=== PATIENT | female | born 1995 | race Caucasian/White ===

== ENCOUNTER 2019-07-10 18:24 | Emergency (ER) | payer OTHER, SELFPAY | END 2019-07-10 18:43 | disposition left against medical advice (07) | LOC: ER 07-13 12:49 | PROVIDERS: Emergency Provider Physician Assistant; Family Provider Family Medicine | DX: Z53.21 Procedure and treatment not carried out due to patient leaving prior to being seen by health care provider (principal) | CPT/HCPCS: 99281 ==

== ENCOUNTER 2019-10-20 19:07 | Emergency (ER) | payer OTHER, SELFPAY ==
[2019-10-20 19:14] VITALS: BP 151/97; PULSE 109; RESP 18; TEMP 37; O2SAT 97; BMI 46.4
[2019-10-20 21:04] LABS: Basophils # 0.1 10^3/uL (0.0-0.1); Basophils % 0.5 %; Eosinophils # 0.2 10^3/uL (0.0-0.8); Eosinophils % 2.2 %; Hematocrit 46.3 % (37.0-47.0); Hemoglobin 14.3 g/dL (11.5-15.3); Lymphocytes # 2.5 10^3/uL (0.8-4.8); Lymphocytes % 25.9 %; Mean Corpuscular HGB Conc 30.9 g/dL (30.0-36.0); Mean Corpuscular Volume 87.5 fL (81-99); Mean Platelet Volume 11.3 fL (7.4-10.4); Monocytes # 0.7 10^3/uL (0.2-0.9); Neutrophils # 6.13 10^3/uL (1.8-7.7); Neutrophils % 64.1 %; Nucleated Red Blood Cells % 0 %; Platelet Count 323 10^3/cmm (130-400); Red Blood Count 5.29 10^6/uL (4.1-5.3); Red Cell Distribution Width 13.1 % (12.1-15.1); White Blood Count 9.6 10^3/uL (4.0-10.0)
--- NOTE | 2019-10-20 21:18 | ED_ITS ---
HPI - Abdominal Pain General: Chief Complaint: Abdominal Pain Stated Complaint: weakness Time Seen by Provider: 10/20/19 21:03 Source: patient Mode of arrival: ambulatory Limitations: no limitations History of Present Illness: HPI narrative: 24-year-old female who believes she has 8 to 10 weeks . She states she has had lower abdominal cramping she rates a 2 out of 10. She has had no vomiting or diarrhea. Denies any dysuria. Denies any worsening improving factors. MD elicited complaint: abdominal pain Associated Symptoms: Denies chills, dysuria and fever(s) Review of Systems Const: Denies: fever(s), chills, body aches or change in appetite Eyes: Denies: blurry vision or eye discomfort ENMT: Denies: throat pain or dental pain Card: Denies: chest pain Resp: Denies: dyspnea GI: Reports: abdominal pain : Denies: dysuria Musc: Denies: neck pain or back pain Skin/Breast: Denies: rash Neuro: Denies: headache(s) Psych: Denies: depression Cortes/Lymph: Denies: easy bruising All/Imm: Denies: urticaria Physical Exam Const: COMMON NORMALS: no acute distress, patient oriented x3 and healthy appearing HENMT: COMMON NORMALS: normocephalic and atraumatic HEAD & SCALP: normocephalic and atraumatic Eye: COMMON NORMALS: Equal, round and reactive pupils present and EOMs intact bilaterally PUPIL: Yes Equal, round and reactive pupils present Neck/C-Spine: COMMON NORMALS: full ROM and supple Chest: COMMONS NORMALS: normal inspection of the chest and normal palpation of entire chest wall Resp: COMMON NORMALS: normal respiratory effort, No retractions, No use of accessory muscles and clear to auscultation bilaterally AUSCULTATION: clear to auscultation bilaterally Cardio: COMMON NORMALS: regular rate, regular rhythm and No murmurs present (Cardio) RATE: regular rate RHYTHM: regular rhythm GI: COMMON NORMALS: Normal to inspection, nondistended, normoactive bowel sounds present, Soft to palpation, non-tender and no masses PALPATION: Yes Soft to palpation Extremity: COMMON NORMALS: normal to inspection and full ROM Neuro: COMMON NORMALS: patient oriented x3, moves all extremities and no focal motor deficits Psych: COMMON NORMALS: mental status grossly normal, Normal thought process present and cooperative THOUGHT PROCESS: Normal thought process present Skin: COMMON NORMALS: no rashes or lesions noted and no wounds GENERAL SKIN EXAM: no rashes or lesions noted Course Vital Signs: Vital signs: Vital Signs Temperature 98.6 F 10/20/19 19:14 Pulse Rate 90 10/20/19 22:00 Respiratory Rate 16 10/20/19 22:00 Blood Pressure 138/87 10/20/19 22:00 Pulse Oximetry 98 10/20/19 22:00 MDM - Abdominal Pain MDM Narrative: Medical decision making narrative: Liz presents here with abdominal cramping and was concerned that she was and miscarrying. Patient's test here is negative. Her abdominal exam is benign and she has no signs of acute surgical abdomen. Patient's lab work here is normal as well. She is to follow-up with Dr. Dior later this week as scheduled. She is return to the ER if worsening. She understands agrees to plan. Lab Data: Labs: Lab Results 10/20/19 10/20/19 10/20/19 Range/Units 20:38 20:38 20:38 WBC 9.6 (4.0-10.0) 10^3/ uL RBC 5.29 (4.1-5.3) 10^6/u L Hgb 14.3 (11.5-15.3) g/dL Hct 46.3 (37.0-47.0) % MCV 87.5 (81-99) fL MCH 27.0 L (28.0-34.0) pg MCHC 30.9 (30.0-36.0) g/dL RDW 13.1 (12.1-15.1) % Plt Count 323 (130-400) 10^3/c mm MPV 11.3 H (7.4-10.4) fL Neut % (Auto) 64.1 % Lymph % (Auto) 25.9 % St[place] % (Auto) 7.0 % Eos % (Auto) 2.2 % Baso % (Auto) 0.5 % Neut # (Auto) 6.13 (1.8-7.7) 10^3/u L Lymph # (Auto) 2.5 (0.8-4.8) 10^3/u L [place] # (Auto) 0.7 (0.2-0.9) 10^3/u L Eos # (Auto) 0.2 (0.0-0.8) 10^3/u L Baso # (Auto) 0.1 (0.0-0.1) 10^3/u L Nucleated RBC % (a uto) 0 % Nucleated RBCs # 0.0 /100WBC Sodium 137 (136-145) mmol/L Potassium 3.7 (3.5-5.1) mmol/L Chloride 101 (98-107) mmol/L Carbon Dioxide 28 (22-29) mmol/L Anion Gap 11.7 (5-19) BUN 8 (6-20) mg/dL Creatinine 0.6 (0.5-0.9) mg/dL GFR Calculation 125.0 (90-130) mL/min Glucose 103 (65-115) mg/dL Calculated Osmolal ity 280 L (285-295) mOsm/k g Calcium 9.7 (8.5-10.5) mg/dL Magnesium 2.1 (1.7-2.3) mg/dL Total Bilirubin 0.2 (0.15-1.2) mg/dL AST 66 H (0-32) U/L ALT 131 H (0-33) U/L Alkaline Phosphata se 82 (35-105) IU/L Total Protein 8.0 (6.6-8.7) g/dL Albumin 4.7 (3.5-5.2) g/dL Globulin 3.3 (1.3-4.6) g/dL Lipase 24 (13-60) U/L Ser , Margarita i-Qnt 0.50 mIU/mL Urine Color (Yellow) Urine Appearance (CLEAR) Urine pH (5-7) Ur Specific Gravit y (1.005-1.030) Urine Protein (Negative) Urine Glucose (UA) (Normal) Urine Ketones (Negative) Urine Blood (Negative) Urine Nitrate (Negative) Urine Bilirubin (NEGATIVE) Urine Urobilinogen (Negative) mg/dL Ur Leukocyte Paulina ase (Negative) Urine RBC (0-2) /hpf Urine WBC (0-5) /hpf Ur Squamous Epith Cells (0-5) Urine Bacteria (NONE) Urine Mucus // Range/Units 21:06 WBC (4.0-10.0) 10^3/ uL RBC (4.1-5.3) 10^6/u L Hgb (11.5-15.3) g/dL Hct (37.0-47.0) % MCV (81-99) fL MCH (28.0-34.0) pg MCHC (30.0-36.0) g/dL RDW (12.1-15.1) % Plt Count (130-400) 10^3/c mm MPV (7.4-10.4) fL Neut % (Auto) % Lymph % (Auto) % [place] % (Auto) % Eos % (Auto) % Baso % (Auto) % Neut # (Auto) (1.8-7.7) 10^3/u L Lymph # (Auto) (0.8-4.8) 10^3/u L [place] # (Auto) (0.2-0.9) 10^3/u L Eos # (Auto) (0.0-0.8) 10^3/u L Baso # (Auto) (0.0-0.1) 10^3/u L Nucleated RBC % (a uto) % Nucleated RBCs # /100WBC Sodium (136-145) mmol/L Potassium (3.5-5.1) mmol/L Chloride (98-107) mmol/L Carbon Dioxide (22-29) mmol/L Anion Gap (5-19) BUN (6-20) mg/dL Creatinine (0.5-0.9) mg/dL GFR Calculation (90-130) mL/min Glucose (65-115) mg/dL Calculated Osmolal ity (285-295) mOsm/k g Calcium (8.5-10.5) mg/dL Magnesium (1.7-2.3) mg/dL Total Bilirubin (0.15-1.2) mg/dL AST (0-32) U/L ALT (0-33) U/L Alkaline Phosphata se (35-105) IU/L Total Protein (6.6-8.7) g/dL Albumin (3.5-5.2) g/dL Globulin (1.3-4.6) g/dL Lipase (13-60) U/L Ser , Margarita i-Qnt mIU/mL Urine Color Yellow (Yellow) Urine Appearance Hazy A (CLEAR) Urine pH 7 (5-7) Ur Specific Gravit y 1.015 (1.005-1.030) Urine Protein Neg (Negative) Urine Glucose (UA) Norm (Normal) Urine Ketones Negative (Negative) Urine Blood 3+ H (Negative) Urine Nitrate Negative (Negative) Urine Bilirubin Neg (NEGATIVE) Urine Urobilinogen 1 H (Negative) mg/dL Ur Leukocyte Paulina ase Negative (Negative) Urine RBC 5-10 H (0-2) /hpf Urine WBC None (0-5) /hpf Ur Squamous Epith Cells 10-15 H (0-5) Urine Bacteria Trace (NONE) Urine Mucus 1+ Discharge Plan Discharge Patient Disposition: Home, Self-Care Clinical Impression: Abdominal pain Qualifiers: Abdominal location: generalized Qualified Code(s): R10.84 - Generalized abdominal pain Condition: Stable Prescriptions: No Action Tums 200 mg calcium (500 mg) Tablet,Chewable 200 mg PO QID PRN (Reason: Heartburn) RF: 0 Vitamin Plus Low Iron 27 mg iron- 1 mg tablet 1 tab PO DAILY RF: 0 Discharge Orders: Discharge Order (Routine); Ordered 10/20/19 Ordered By: Ally Fowler Referrals: Burke Dior MD [Primary Care Provider] - 1-3 days Discharge Diet: Advance as tolerated Discharge Activity: Resume usual activity Patient Instructions: Abdominal Pain (ED) Discharge Date/Time: 10/20/19 22:06 Coding Level of Care Code ED Insulation Power Unit Tender for Chg Fwd Exam Comprehensive
[2019-10-20 21:21] LABS: Alanine Aminotransferase 131 U/L (0-33); Albumin Level 4.7 g/dL (3.5-5.2); Alkaline Phosphatase 82 IU/L (35-105); Anion Gap 11.7 (5-19); Aspartate Amino Transferase 66 U/L (0-32); Blood Urea Nitrogen 8 mg/dL (6-20); Calcium 9.7 mg/dL (8.5-10.5); Carbon Dioxide 28 mmol/L (22-29); Chloride 101 mmol/L (98-107); Globulin 3.3 g/dL (1.3-4.6); Glucose 103 mg/dL (65-115); Lipase 24 U/L (13-60); Magnesium 2.1 mg/dL (1.7-2.3); Osmolality Calculated 280 mOsm/kg (285-295); Potassium 3.7 mmol/L (3.5-5.1); Sodium 137 mmol/L (136-145); Total Bilirubin 0.2 mg/dL (0.15-1.2)
[2019-10-20 21:47] LABS: Specific Gravity, Urine 1.015 (1.005-1.030); Urine Appearance Hazy (CLEAR); Urine Color Yellow (Yellow); pH Urine 7 (5-7)
[2019-10-20 21:48] LABS: Bilirubin Urine Neg (NEGATIVE); Blood Urine 3+ (Negative); Glucose Urine UA Norm (Normal); Ketones Urine Negative (Negative); Leukocyte Esterase Urine Negative (Negative); Nitrate Urine Negative (Negative); Protein Urine Neg (Negative); Urobilinogen Urine 1 mg/dL (Negative)
[2019-10-20 21:50] VITALS: BP 133/79; PULSE 101; RESP 20; O2SAT 99
[2019-10-20 21:50] LABS: Add Urine Culture? No; Bacteria Urine TRACE; Mucus Urine 1+
[2019-10-20 22:00] VITALS: BP 138/87; PULSE 90; RESP 16; O2SAT 98
== END 2019-10-20 22:06 | disposition home or self-care (01) ==
PROVIDERS: Emergency Medicine; Emergency Provider Emergency Medicine; PCP Family Medicine
DX: R10.9 Unspecified abdominal pain (principal); R53.1 Weakness
CPT/HCPCS: 12345; 36415; 80053; 81001; 83690; 83735; 84702; 85025; 99282

== ENCOUNTER 2021-02-14 08:39 | Emergency (ER) | payer OTHER, SELFPAY ==
[2021-02-14 08:57] VITALS: BP 174/112; PULSE 87; RESP 16; TEMP 36.7; O2SAT 100; BMI 57.8
--- NOTE | 2021-02-14 09:02 | XR_ITS ---
WS: [id number] Exam: XR chest 1V portable [id number] Date/Time of Exam: 02/14/2021 9:11 AM Reason For Exam: CHEST PAIN Comparison 05/19/2015. Findings: The lungs are clear and fully expanded. Costophrenic angles are sharp. No infiltrates. Bronchovascula r relief appears normal. Cardiac silhouette is unremarkable. Bony elements are intact. XR/XR chest 1V portable [id number] IMPRESSION: Unremarkable chest radiograph.
--- NOTE | 2021-02-14 09:02 | ECG_ITS ---
[facility] Test Date: 2021-02-14 Pat Name: Liz Webster Department: Room: Gender: Female Key Bed Installer: : 1995 Requested By: Janak Conner Order Number: [id number] Artur MD: Patricio Sandy M.D. Measurements Intervals [place] Rate: 91 P: 36 [place]: 170 QRS: 9 QRSD: 104 T: 31 QT: 336 QTc: 415 Interpretive Statements SINUS RHYTHM INTERPRETATION BASED ON A DEFAULT AGE OF 40 YEARS Compared to ECG 05/19/2015 09:41:03 No significant changes Electronically Signed On 02-14-2021 21:55:21 QUILL MACHINE TENDER by Patricio Sandy M.D. [id number] f
--- NOTE | 2021-02-14 11:24 | ED_ITS ---
HPI - Chest Pain General: Chief Complaint: Chest Pain Stated Complaint: Chest pains, dizzy, HTN, sent by [facility] Time Seen by Provider: 02/14/21 11:24 History of Present Illness: HPI narrative: Ms. Webster is a 25-year-old lady with significant past medical history of obesity who presents emergency department due to high blood pressure and chest discomfort. She has been at her baseline health without significant changes when she was at work this morning. She endorses being in a patient room with PPE on when she had fairly subacute onset of generalized malaise chest pressure in the middle of her chest, mild dizziness, and diaphoresis. Her blood pressure was checked and reportedly high. She subsequently went to clinic and was found to have high blood pressure there as well and referred to the emergency department. She denies similar episodes in the past. Intensity of symptoms was moderate. Overall symptoms have improved. She does have a family history of some sort of early cardiac disease, occasional smoker. No recent immobilization or history of blood clots. No other specific changes in health, exacerbating, provoking, or alleviating factors identified. Review of Systems General: Reports: 10 or more systems reviewed and unremarkable except in HPI and below REPLACED BY [facility] Female Reproductive History: Date of last menstrual period: 11/30/20 Physical Exam Narrative: EXAM NARRATIVE: GENERAL/CONSTITUTIONAL -mildly ill-appearing. No acute distress. Obese Eyes -no scleral icterus, no conjunctival injection ENMT - Atraumatic external nose and ears. Moist mucous membranes NECK - supple. trachea midline CARDIOVASCULAR - regular rate and rhythm. Normal peripheral perfusion RESPIRATORY -diminished to auscultation bilaterally. No retractions or accessory muscle use. ABDOMEN/GI - Nontender/Nondistended. No tenderness to percussion or evidence of peritonitis MSK - Extremities without obvious deformity or tenderness to palpation SKIN - Warm, Dry NEURO - alert and appropriately oriented.Moves all extremities equally. Course ED course: - Patient was seen and evaluated by me at bedside - Patient placed on cardiac monitors, IV access obtained - Initial evaluation notable for no acute distress, nontoxic appearance. Blood pressure is somewhat elevated. No focal neurologic deficits. Chest pain not reproducible with physical exam maneuvers. - Labs notable for no leukocytosis, normal hemoglobin. No significant metabolic abnormalities to explain patient symptoms - Imaging notable for negative chest - Upon serial reexamination after treatment the patient was similar - Based on patient history, evaluation, labs, and imaging as interpreted the most likely cause of the patient's condition is unspecified chest pain, patient is low risk by heart score. She was tested at work yesterday for Covid and reportedly tested negative. - The results of ED evaluation were discussed with the patient including prescriptions and/or symptomatic cares (if applicable) including appropriate and responsible use, followup plan, and return precautions. The patient verbalized understanding and felt safe for discharge. - Patient discharged in satisfactory condition. Vital Signs: Vital signs: Vital Signs Temperature 98.1 F 02/14/21 08:57 Pulse Rate 78 02/14/21 14:42 Respiratory Rate 18 02/14/21 14:42 Blood Pressure 148/93 02/14/21 14:42 Pulse Oximetry 98 02/14/21 14:42 MDM - Chest Pain Medical Records: Attestation: I reviewed the patient's medical records. Lab Data: Attestation: I reviewed the patient's lab results. Labs: Lab Results 02/14/21 02/14/21 02/14/21 11:55 11:55 11:55 WBC 9.5 10^3/uL 10^3/ uL (4.0-10.0) RBC 4.75 10^6/uL 10^6 /uL (4.1-5.3) Hgb 13.2 g/dL g/dL (11.5-15.3) Hct 41.3 % % (37.0-47.0) MCV 86.9 fl fl (81-99) MCH 27.8 pg L pg (28.0-34.0) MCHC 32.0 g/dL g/dL (30.0-36.0) RDW 12.9 % % (12.1-15.1) Plt Count 259 10^3/cmm 10^3 /cmm (130-400) MPV 11.2 fL H fL (7.4-10.4) Neut % (Auto) 69.5 % % Lymph % (Auto) 21.3 % % [place] % (Auto) 6.8 % % Eos % (Auto) 1.8 % % Baso % (Auto) 0.4 % % Neut # (Auto) 6.63 10^3/uL 10^3 /uL (1.8-7.7) Lymph # (Auto) 2.0 10^3/uL 10^3/ uL (0.8-4.8) [place] # (Auto) 0.7 10^3/uL 10^3/ uL (0.2-0.9) Eos # (Auto) 0.2 10^3/uL 10^3/ uL (0.0-0.8) Baso # (Auto) 0.0 10^3/uL 10^3/ uL (0.0-0.1) Nucleated RBC % (a uto) 0 % % Nucleated RBCs # 0.0 /100WBC /100W BC Sodium Cancelled Potassium Cancelled Chloride Cancelled Carbon Dioxide Cancelled Anion Gap Cancelled BUN Cancelled Creatinine Cancelled GFR Calculation Cancelled Glucose Cancelled Calculated Osmolal ity Cancelled Calcium Cancelled Troponin T Baselin e Cancelled HCG, Qual Urine Color Urine Appearance Urine pH Ur Specific Gravit y Urine Protein Urine Glucose (UA) Urine Ketones Urine Blood Urine Nitrate Urine Bilirubin Urine Urobilinogen Ur Leukocyte Paulina ase Urine RBC Urine WBC Ur Squamous Epith Cells Ur Transition Epit h Cell Amorphous Sediment Urine Bacteria Urine Mucus 02/14/21 02/14/21 02/14/21 12:00 12:00 12:34 WBC RBC Hgb Hct MCV MCH MCHC RDW Plt Count MPV Neut % (Auto) Lymph % (Auto) [place] % (Auto) Eos % (Auto) Baso % (Auto) Neut # (Auto) Lymph # (Auto) [place] # (Auto) Eos # (Auto) Baso # (Auto) Nucleated RBC % (a uto) Nucleated RBCs # Sodium 136 mmol/L mmol/L (136-145) Potassium 3.7 mmol/L mmol/L (3.5-5.1) Chloride 98 mmol/L mmol/L (98-107) Carbon Dioxide 22 mmol/L mmol/L (22-29) Anion Gap 19.7 H (5-19) BUN 8 mg/dL mg/dL (6-20) Creatinine 0.7 mg/dL mg/dL (0.5-0.9) GFR Calculation 103.7 mL/min mL/m in (90-130) Glucose 90 mg/dL mg/dL (65-115) Calculated Osmolal ity 280 mOsm/kg L mOs m/kg (285-295) Calcium 9.3 mg/dL mg/dL (8.5-10.5) Troponin T Baselin e HCG, Qual Negative (Negative) Urine Color Yellow (Yellow) Urine Appearance Hazy A (CLEAR) Urine pH 6 (5-7) Ur Specific Gravit y 1.020 (1.005-1.030) Urine Protein Neg (Negative) Urine Glucose (UA) Norm (Normal) Urine Ketones 1+ H (Negative) Urine Blood Neg (Negative) Urine Nitrate Negative (Negative) Urine Bilirubin 1+ H (Negative) Urine Urobilinogen 1 mg/dL H mg/dL (Negative) Ur Leukocyte Paulina ase 1+ H (Negative) Urine RBC Not Reportable Urine WBC 5-10 /hpf H /hpf (0-5) Ur Squamous Epith Cells 5-10 /hpf H /hpf (0-5) Ur Transition Epit h Cell 0-4 /hpf /hpf Amorphous Sediment Trace /hpf /hpf Urine Bacteria 1+ /hpf H /hpf (NONE) Urine Mucus 2+ /hpf /hpf 02/14/21 12:34 WBC RBC Hgb Hct MCV MCH MCHC RDW Plt Count MPV Neut % (Auto) Lymph % (Auto) [place] % (Auto) Eos % (Auto) Baso % (Auto) Neut # (Auto) Lymph # (Auto) [place] # (Auto) Eos # (Auto) Baso # (Auto) Nucleated RBC % (a uto) Nucleated RBCs # Sodium Potassium Chloride Carbon Dioxide Anion Gap BUN Creatinine GFR Calculation Glucose Calculated Osmolal ity Calcium Troponin T Baselin e 6 ng/L ng/L (0-10) HCG, Qual Urine Color Urine Appearance Urine pH Ur Specific Gravit y Urine Protein Urine Glucose (UA) Urine Ketones Urine Blood Urine Nitrate Urine Bilirubin Urine Urobilinogen Ur Leukocyte Paulina ase Urine RBC Urine WBC Ur Squamous Epith Cells Ur Transition Epit h Cell Amorphous Sediment Urine Bacteria Urine Mucus EKG Data^: EKG 1: Attestation: I personally reviewed and interpreted this EKG as follows: EKG interpretation date: 02/14/21 EKG interpretation time: 09:02 Interpretation: Twelve-lead EKG shows a regular rhythm at a rate of 91. [place] interval 170, QRS duration 104, QTc 415. Borderline axis. Interpretation: Sinus rhythm. Discharge Plan Discharge Patient Disposition: Home Clinical Impression: Chest pain, Hypertension Condition: Stable Prescriptions: No Action acetaminophen 500 mg tablet 500 mg PO Q6H PRN (Reason: pain) 5 Days Qty: 20 RF: 0 Discharge Orders: Discharge ED (Routine); Ordered 02/14/21 Ordered By: Steven Bob Referrals: Burke Dior MD [Primary Care Provider] - Discharge Diet: Advance as tolerated Discharge Activity: Increase activity as tolerated Patient Instructions: Chest Pain (ED), Hypertension (ED) Activity Restrictions/Additional Instructions: Thank you for visiting the emergency department. You were seen and evaluated for chest pain, high blood pressure, generalized malaise. The exact cause of your symptoms is unclear however based on risk factors and description of symptoms you are overall low risk for a cardiac etiology of your chest pain. Please keep track of your blood pressure at home and keep a log for 1 week checking it twice per day in a relaxed calm environment. Please follow-up with your primary care provider. Please return to the emergency department for recurrence of symptoms, worsening symptoms, or anything else that you are concerned about and feel needs emergency department evaluation. Coding Level of Care Code ED Baler Operator for Liliana Rivas
[2021-02-14 12:04] LABS: Basophils % 0.4 %; Eosinophils # 0.2 10^3/uL (0.0-0.8); Eosinophils % 1.8 %; Hematocrit 41.3 % (37.0-47.0); Hemoglobin 13.2 g/dL (11.5-15.3); Lymphocytes % 21.3 %; Mean Corpuscular Hemoglobin 27.8 pg (28.0-34.0); Mean Corpuscular Volume 86.9 fl (81-99); Mean Platelet Volume 11.2 fL (7.4-10.4); Monocytes # 0.7 10^3/uL (0.2-0.9); Monocytes % 6.8 %; Neutrophils # 6.63 10^3/uL (1.8-7.7); Neutrophils % 69.5 %; Nucleated Red Blood Cells % 0 %; Platelet Count 259 10^3/cmm (130-400); Red Blood Count 4.75 10^6/uL (4.1-5.3); Red Cell Distribution Width 12.9 % (12.1-15.1); White Blood Count 9.5 10^3/uL (4.0-10.0)
[2021-02-14 12:32] LABS: Charge for UA Resulting for Rev
[2021-02-14 12:37] LABS: Urine Appearance Hazy (CLEAR); Urine Color Yellow (Yellow); pH Urine 6 (5-7)
[2021-02-14 12:38] LABS: Add Urine Microscopic? YES; Bilirubin Urine 1+ (Negative); Blood Urine Neg (Negative); Glucose Urine UA Norm (Normal); Ketones Urine 1+ (Negative); Leukocyte Esterase Urine 1+ (Negative); Nitrate Urine Negative (Negative); Protein Urine Neg (Negative); Urobilinogen Urine 1 mg/dL (Negative)
[2021-02-14 12:43] LABS: Amorphous Sediment Urine TRACE /hpf; Bacteria Urine 1+ /hpf; Mucus Urine 2+ /hpf; Transitional Epi Cells Urine 0-4 /hpf
[2021-02-14 12:47] LABS: Add Urine Culture? Yes
[2021-02-14 13:28] LABS: Troponin(5th) Baseline 6 ng/L (0-10)
[2021-02-14 13:29] LABS: Anion Gap 19.7 (5-19); Blood Urea Nitrogen 8 mg/dL (6-20); Calcium 9.3 mg/dL (8.5-10.5); Carbon Dioxide 22 mmol/L (22-29); Chloride 98 mmol/L (98-107); Glomerular Filtration Rate 103.7 mL/min (90-130); Glucose 90 mg/dL (65-115); Osmolality Calculated 280 mOsm/kg (285-295); Potassium 3.7 mmol/L (3.5-5.1); Sodium 136 mmol/L (136-145)
[2021-02-14] MEDS: sodium chloride 0.9% 1,000 ML 999 ML IV (13:55)
[2021-02-14] MEDS: ketorolac 30 mg/mL INJ 15 MG IVP (13:56)
[2021-02-14 13:57] VITALS: PULSE 87; RESP 18
[2021-02-14 14:42] VITALS: BP 148/93; PULSE 78; RESP 18; O2SAT 98
--- NOTE | 2021-02-14 15:02 | ECG_ITS ---
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 Measurements Intervals [place] Rate: 95 P: 28 [place]: 180 QRS: 2 QRSD: 103 T: 22 QT: 359 QTc: 453 Interpretive Statements SINUS RHYTHM POSSIBLE LEFT ATRIAL ENLARGEMENT [-0.1mV P-WAVE IN V1/V2] LOW QRS VOLTAGE IN PRECORDIAL LEADS [QRS DEFLECTION < 1.0 mV IN CHEST LEADS] PATTERN CONSISTENT WITH PULMONARY DISEASE INCOMPLETE RIGHT BUNDLE BRANCH BLOCK [90+ ms QRS DURATION, TERMINAL R IN V1/V2, 40+ ms S IN I/aVL/V4/V5/V6] Compared to ECG 02/14/2021 08:55:14 Low QRS voltage now present Incomplete right bundle-branch block now present Electronically Signed On 02-14-2021 22:12:44 DATA WAREHOUSE DEVELOPER by Patricio Sandy M.D. [id number]
[2021-02-14 16:08] LABS: HCG Qualitative Urine. Negative (Negative)
== END 2021-02-14 14:44 | disposition home or self-care (01) ==
PROVIDERS: Family Medicine; Emergency Provider Emergency Medicine; PCP Family Medicine
DX: R07.9 Chest pain, unspecified (principal); I10 Essential (primary) hypertension
CPT/HCPCS: 36415; 71045; 80048; 81001; 81003; 81025; 84484; 85025; 87086; 93005; 96361; 96374; 99283; J1885; J7030

== ENCOUNTER 2021-02-14 17:44 | Emergency (ER) | payer OTHER, SELFPAY ==
[2021-02-14 17:52] VITALS: BP 174/117; PULSE 136; RESP 24; TEMP 36.8; O2SAT 99; BMI 57.8
[2021-02-14 18:06] VITALS: BP 129/107; PULSE 129; RESP 13; O2SAT 97
--- NOTE | 2021-02-14 18:13 | XRR_ITS ---
PROCEDURE INFORMATION: Exam: XR Chest Exam date and time: 02/14/2021 6:13 PM Age: 25 years old Clinical indication: Shortness of breath; Additional info: Eval ptx TECHNIQUE: Imaging protocol: XR of the chest. Views: 1 view. COMPARISON: CR XR chest 1V portable [id number] 02/14/2021 9:10 AM FINDINGS: Lungs: Unremarkable. No consolidation. Pleural spaces: Unremarkable. No pleural effusion. No pneumothorax. Heart/Mediastinum: Unremarkable. No cardiomegaly. Bones/joints: Unremarkable. XR/XR chest 1V portable [id number] IMPRESSION: No acute findings. Radiation Dose CTDIVOL = (mGy): DLP = (mGy-cm)
[2021-02-14] MEDS: LORazepam 2 mg/mL INJ 1 mL IVP (18:16)
[2021-02-14 19:40] VITALS: RESP 18
[2021-02-14] MEDS: morphine 4 mg/mL SDV 1 mL 2 MG IVP (19:40)
[2021-02-14] MEDS: sodium chloride 0.9% 1,000 ML 999 ML IV (19:40)
[2021-02-14 19:55] LABS: Basophils # 0.1 10^3/uL (0.0-0.1); Basophils % 0.6 %; Eosinophils # 0.2 10^3/uL (0.0-0.8); Eosinophils % 1.5 %; Hematocrit 40.3 % (37.0-47.0); Hemoglobin 13.6 g/dL (11.5-15.3); Lymphocytes # 3.2 10^3/uL (0.8-4.8); Lymphocytes % 29.5 %; Mean Corpuscular HGB Conc 33.7 g/dL (30.0-36.0); Mean Corpuscular Volume 83.1 fl (81-99); Mean Platelet Volume 11.4 fL (7.4-10.4); Monocytes # 0.8 10^3/uL (0.2-0.9); Monocytes % 7.6 %; Neutrophils # 6.56 10^3/uL (1.8-7.7); Neutrophils % 60.3 %; Nucleated Red Blood Cells % 0 %; Platelet Count 341 10^3/cmm (130-400); Red Blood Count 4.85 10^6/uL (4.1-5.3); White Blood Count 10.9 10^3/uL (4.0-10.0)
[2021-02-14 20:13] LABS: D Dimer 0.35 ug/mIFEU (0-0.59)
[2021-02-14 20:16] LABS: Troponin T (5th) Once 6 ng/L (0-10)
[2021-02-14 20:25] LABS: Anion Gap 22.4 (5-19); Blood Urea Nitrogen 9 mg/dL (6-20); Calcium 9.5 mg/dL (8.5-10.5); Carbon Dioxide 18 mmol/L (22-29); Chloride 101 mmol/L (98-107); Glomerular Filtration Rate 103.7 mL/min (90-130); Glucose 98 mg/dL (65-115); Osmolality Calculated 285 mOsm/kg (285-295); Potassium 3.4 mmol/L (3.5-5.1); Sodium 138 mmol/L (136-145); Thyroid Stimulating Hormone 2.22 uIU/mL (0.27-4.20)
[2021-02-14 20:36] VITALS: BP 131/87; PULSE 86; RESP 16; O2SAT 97
--- NOTE | 2021-02-14 20:47 | ED_ITS ---
HPI - General Adult General: Chief complaint: Anxiety Stated complaint: CHEST PAIN/ L ARM NUMBNESS Time Seen by Provider: 02/14/21 17:49 History of Present Illness: HPI narrative: CC: Chest Pain HPI: This is a [25] yo patient presenting to the ED complaining of acute sudden onset intermittent sharp chest pain. No associated with shortness of breath, chest pain or dyspnea on exertion. Pain is not tearing in nature and does not radiate to the back. Pain not associated with vomiting or PO intake. Denies any recent sympathomimetic drug use. Patient denies any cough. Denies palpitations, dysphagia, diaphoresis, radiation of pain to bilateral arms, jaw. Denies F/N/V/D. Patient denies any recent immobility, surgery, unilateral leg swelling, or prior PE. Patient denies any orthopnea. Patient was seen earlier today for chest pain. Onset: 1 days ago Duration: ongoing for the last 1 days Location: home Severity: mild/moderate Review of Systems Narrative: Constitutional: No fever, no chills. HEENT: No vision changes, no sore throat. CV: +chest pain, no palpitations. PULM: No cough, No dyspnea. GI: No abdominal pain, no N/V/D. : No dysuria, no frequency, no hematuria. MSKEL: No arthralgias, no edema. SKIN: No new rashes, no lesions. NEURO: No headache, no focal weakness. HEME: No easy bleeding or bruising. PSYCH: No change in mood or affect. [facility] ED Female Reproductive History: Date of last menstrual period: 11/30/20 Physical Exam Narrative: EXAM NARRATIVE: Head: Atraumatic, normocephalic Eyes: PERRL, EOMI, conjunctiva without injection ENT: Throat without erythema, lesions or exudate, MMM NECK: Supple, trachea midline, no JVD LUNGS: LCTA CV: RRR, S1,S2, no murmurs, rubs, gallops. 2+ peripheral pulses in UEs ABDOMEN: Soft, nontender, nondistended, BS x4, no rigidity, no guarding, no rebound EXTREMITY: Normal ROM, no pitting edema, no calf tenderness to palpation, 2+DP/PT pulses in the b/l feet SKIN: No rash or erythema NEURO: Awake and alert. No focal motor deficits. PSYCH: Normal mood and affect. Course Vital Signs: Vital signs: Vital Signs Temperature 98.2 F 02/14/21 17:52 Pulse Rate 92 02/14/21 21:43 Respiratory Rate 16 02/14/21 20:36 Blood Pressure 127/76 02/14/21 21:43 Pulse Oximetry 94 02/14/21 21:43 MDM - General Adult MDM Narrative: Medical decision making narrative: [25]yo patient w/ hx of obesity and occasional smoking representing to the ED for concern of persistent chest pain despite evaluation earlier today. HDS, pulse 2+ radially bilaterally, no signs of fluid overload, AAOx3, neuro exam intact. Given History and Exam today I have no suspicion for ACS, Pneumothorax, Pneumonia, Pulmonary Embolus, Tamponade, Aortic Dissection or other emergent problems as a cause for this presentation. Workup: ECG, CXR, CBC, BMP, Troponin Interventions: ativan 1mg, morphine 2mg, IVF Findings: ECG: No overt evidence of STEMI, hyperacute T waves, localizable STD or T wave inversions. No evidence of Brugada?s sign, delta wave, epsilon wave, significantly prolonged QTc, or malignant arrhythmia. No Q waves. Other Labs unremarkable for emergent problems. CXR: Without PTX, PNA, or widened mediastinum Last Stress Test: never Last Heart Catheterization: never HEART Score: 1 (story) D dimer wnl [8:48pm] On reassessment, the patient is HDS, no complaints of persistent chest pain in the ED after evaluation. ECG is non-ischemic. Doubt ACS/PE or other emergent causes of chest pain. No suspicion for aortic dissection given no wi dened mediastinum, 2+ upper extremity pulses, or tearing pain. Patient had back and abdominal pain. Bedside US did not show any dissection flap in the abdominal aorta and the LV outflow track. Patient has 2+ b/l femoral pulses and intact b/l DP/PT pulses b/l. No suspicion for PE given no pleuritic chest pain, recent immobilization or surgery hemoptysis, or other VTE risk factors. D-Dimer is similarly normal. Rx: Tylenol 500mg Q6Hrs x 4 days PRN pain Disposition: Discharge. Strict return precautions discussed with the patient with full understanding. Advised patient to follow up promptly with a primary care provider in 24-48 hrs if the patient has persistent symptoms. Given return instructions for any crushing/tearing chest pain, focal weakness, syncope or any new or concerning issues. Lab Data: Labs: Lab Results 02/14/21 02/14/21 02/14/21 19:48 19:48 19:48 WBC 10.9 10^3/uL H 10 ^3/uL (4.0-10.0) RBC 4.85 10^6/uL 10^6 /uL (4.1-5.3) Hgb 13.6 g/dL g/dL (11.5-15.3) Hct 40.3 % % (37.0-47.0) MCV 83.1 fl fl (81-99) MCH 28.0 pg pg (28.0-34.0) MCHC 33.7 g/dL D g/dL (30.0-36.0) RDW 13.0 % % (12.1-15.1) Plt Count 341 10^3/cmm D 1 0^3/cmm (130-400) MPV 11.4 fL H fL (7.4-10.4) Neut % (Auto) 60.3 % % Lymph % (Auto) 29.5 % % [place] % (Auto) 7.6 % % Eos % (Auto) 1.5 % % Baso % (Auto) 0.6 % % Neut # (Auto) 6.56 10^3/uL 10^3 /uL (1.8-7.7) Lymph # (Auto) 3.2 10^3/uL 10^3/ uL (0.8-4.8) [place] # (Auto) 0.8 10^3/uL 10^3/ uL (0.2-0.9) Eos # (Auto) 0.2 10^3/uL 10^3/ uL (0.0-0.8) Baso # (Auto) 0.1 10^3/uL 10^3/ uL (0.0-0.1) Nucleated RBC % (a uto) 0 % % Nucleated RBCs # 0.0 /100WBC /100W BC D-Dimer 0.35 ug/mIFEU ug/ mIFEU (0-0.59) Sodium 138 mmol/L mmol/L (136-145) Potassium 3.4 mmol/L L mmol /L (3.5-5.1) Chloride 101 mmol/L mmol/L (98-107) Carbon Dioxide 18 mmol/L L mmol/ L (22-29) Anion Gap 22.4 H (5-19) BUN 9 mg/dL mg/dL (6-20) Creatinine 0.7 mg/dL mg/dL (0.5-0.9) GFR Calculation 103.7 mL/min mL/m in (90-130) Glucose 98 mg/dL mg/dL (65-115) Calculated Osmolal ity 285 mOsm/kg mOsm/ kg (285-295) Calcium 9.5 mg/dL mg/dL (8.5-10.5) Troponin T Gen 5 n g/L TSH 2.22 uIU/mL uIU/m L (0.27-4.20) Free T4 1.10 ng/dL ng/dL (0.82-1.77) 02/14/21 19:48 WBC RBC Hgb Hct MCV MCH MCHC RDW Plt Count MPV Neut % (Auto) Lymph % (Auto) [place] % (Auto) Eos % (Auto) Baso % (Auto) Neut # (Auto) Lymph # (Auto) [place] # (Auto) Eos # (Auto) Baso # (Auto) Nucleated RBC % (a uto) Nucleated RBCs # D-Dimer Sodium Potassium Chloride Carbon Dioxide Anion Gap BUN Creatinine GFR Calculation Glucose Calculated Osmolal ity Calcium Troponin T Gen 5 n g/L 6 ng/L ng/L (0-10) TSH Free T4 Imaging Data^: Other Imaging: Radiologist's impression: [address] [id number] ReportSigned Patient: Liz Webster #: [id number]: 1995Acct#:[id number]/Sex: 25 / FADM Date: 02/14/21Loc: ERRoom/Bed:Attending Dr: Ordering Provider/Ordering MD: Jone Fitzpatrick MD Date of Service: 02/14/21 Procedure(s): XR chest 1V portable [id number] Accession Number(s): [id number] Report Number: [id number] PROCEDURE INFORMATION: Exam: XR Chest Exam date and time: 02/14/2021 6:13 PM Age: 25 years old Clinical indication: Shortness of breath; Additional info: Eval ptx TECHNIQUE: Imaging protocol: XR of the chest. Views: 1 view. COMPARISON: CR XR chest 1V portable [id number] 02/14/2021 9:10 AM FINDINGS: Lungs: Unremarkable. No consolidation. Pleural spaces: Unremarkable. No pleural effusion. No pneumothorax. Heart/Mediastinum: Unremarkable. No cardiomegaly. Bones/joints: Unremarkable. XR/XR chest 1V portable [id number] IMPRESSION: No acute findings. Radiation Dose CTDIVOL = (mGy): DLP = (mGy-cm) Dictated By:Shasta Arellano By:Shasta Arellano Date/Time:02/14/211847DD/ 12 Discharge Plan Discharge Patient Disposition: Home Clinical Impression: Chest pain, Palpitations Condition: Stable Prescriptions: New acetaminophen 500 mg tablet 500 mg PO Q6H PRN (Reason: pain) 5 Days Qty: 20 RF: 0 Discharge Orders: Discharge ED (Routine); Ordered 02/14/21 Ordered By: Jone Fitzpatrick Referrals: Burke Dior MD [Primary Care Provider] - Discharge Diet: Advance as tolerated Discharge Activity: Resume usual activity Patient Instructions: Chest Pain (ED) Activity Restrictions/Additional Instructions: Come back to the emergency room if your chest pain worsens, have any fever or chills, worsening shortness of breath, worsening exertional lightheadedness, or any new or concerning complaints. Coding Level of Care Code ED Ent Consultant for Liliana Rivas
[2021-02-14 21:43] VITALS: BP 127/76; PULSE 92; O2SAT 94
== END 2021-02-14 21:44 | disposition home or self-care (01) ==
PROVIDERS: Emergency Provider Emergency Medicine; PCP Family Medicine
DX: R07.9 Chest pain, unspecified (principal); R00.2 Palpitations
CPT/HCPCS: 71045; 80048; 84439; 84443; 84484; 85025; 85378; 96361; 96374; 96375; 99284; J2060; J2270; J7030

== ENCOUNTER 2021-02-16 12:39 | Emergency (ER) | payer OTHER, SELFPAY ==
[2021-02-16 13:28] VITALS: BP 157/101; PULSE 92; RESP 18; TEMP 36.8; O2SAT 99; BMI 57.4
--- NOTE | 2021-02-16 13:36 | ECG_ITS ---
[facility] Test Date: 2021-02-16 Pat Name: Liz Webster Department: Room: Gender: Female Core Paster: : 1995 Requested By: Janak Conner Order Number: [id number] Artur MD: Jazmín Bautsita M.D. Measurements Intervals [place] Rate: 94 P: 31 [place]: 166 QRS: 1 QRSD: 104 T: 31 QT: 341 QTc: 427 Interpretive Statements SINUS RHYTHM INCOMPLETE RIGHT BUNDLE BRANCH BLOCK [90+ ms QRS DURATION, TERMINAL R IN V1/V2, 40+ ms S IN I/aVL/V4/V5/V6] Compared to ECG 02/14/2021 11:16:36 No significant changes Electronically Signed On 02-17-2021 16:13:04 COAGULATING BATH OPERATOR by Jazmín Bautista M.D. [id number]
--- NOTE | 2021-02-16 17:03 | XRR_ITS ---
PROCEDURE INFORMATION: Exam: XR Chest Exam date and time: 02/16/2021 5:03 PM Age: 25 years old Clinical indication: Pain; Angina pectoris; Additional info: Dyspnea/cough TECHNIQUE: Imaging protocol: XR of the chest. Views: 1 view. COMPARISON: CR (CHEST, ) 02/14/2021 6:26 PM FINDINGS: Lungs: Unremarkable. No consolidation. Pleural spaces: Unremarkable. No pleural effusion. No pneumothorax. Heart/Mediastinum: Unremarkable. No cardiomegaly. Bones/joints: Unremarkable. XR/XR chest 1V portable [id number] IMPRESSION: No acute findings. Radiation Dose CTDIVOL = (mGy): DLP = (mGy-cm)
--- NOTE | 2021-02-16 17:10 | ED_ITS ---
Documented by User: Janak Bauer DO 02/24/21 07:00 HPI - Chest Pain General: Chief Complaint: Chest Pain Stated Complaint: SOB, CP, SAME YESTERDAY Time Seen by Provider: 02/16/21 16:43 History of Present Illness: HPI narrative: 25-year-old female presents emergency room with continued complaints of chest pain shortness of breath. She complained of chest pain upper portion of the chest just to the left of the sternum. She has been here twice this week previously CTA of the chest was negative all other evaluation was unremarkable. Chest pain is reproducible with palpation on the upper portion of the sternum she is hyperventilating when I first came in the room. She reports that she has been lightheaded and dizzy also reports passing out a couple of times. MD complaint: chest pain and chest discomfort Onset (ago): day(s) Timing of current episode: episodic Pain location: left chest and parasternal Pain radiation: none Severity: mild Quality: sharp Relieving factors: rest Exacerbating factors: inspiration and palpation Associated symptoms: Reports sense of impending doom; Deny abdominal pain, diaphoresis, dyspnea, fever(s), leg edema, nausea, palpitations, syncope or vomiting Treatment prior to arrival: none Review of Systems Const: Denies: fever(s) or diaphoresis ENMT: Denies: throat pain, ear or mastoid pain, nasal discharge or nasal congestion Card: Denies: palpitations or syncope Resp: Denies: dyspnea GI: Denies: abdominal pain, nausea or vomiting : Denies: flank pain, difficulty voiding, dysuria, urinary frequency or urinary urgency Skin/Breast: Denies: rash or pruritus [facility] Female Reproductive History: Date of last menstrual period: 11/30/20 Physical Exam Const: COMMON NORMALS: no acute distress GENERAL APPEARANCE: cooperative and comfortable ORIENTATION/CONSCIOUSNESS: Yes awake, Yes oriented to person, Yes oriented to place and Yes oriented to time HENMT: COMMON NORMALS: normocephalic, atraumatic and hearing grossly normal bilaterally HEAD & SCALP: normocephalic and atraumatic Neck/C-Spine: COMMON NORMALS: no JVD Chest: OTHER: Chest pain reproducible left side of the upper sternum with palpation and with deep inspiration. No rash noted no sign of any vesicular rash. Resp: COMMON NORMALS: normal respiratory effort, No retractions, No use of accessory muscles and clear to auscultation bilaterally AUSCULTATION: clear to auscultation bilaterally Cardio: COMMON NORMALS: no JVD, regular rate, regular rhythm and No murmurs present (Cardio) RATE: regular rate RHYTHM: regular rhythm GI: COMMON NORMALS: Soft to palpation and No hepatosplenomegaly present AUSCULTATION: Yes normoactive bowel sounds PALPATION: Yes Soft to palpation, No Tenderness to palpation present (GI), No Guarding due to palpation present (GI) and Yes No hepatosplenomegaly present Extremity: COMMON NORMALS: normal to inspection, capillary refill normal, no clubbing, cyanosis or edema, no calf tenderness and no pedal edema Neuro: SENSORIUM/ORIENTATION: Yes oriented to person, Yes oriented to place and Yes oriented to time Skin: COMMON NORMALS: no rashes or lesions noted GENERAL SKIN EXAM: no rashes or lesions noted Course Vital Signs: Vital signs: Vital Signs Temperature 98.2 F 02/16/21 13:28 Pulse Rate 78 02/16/21 22:50 Respiratory Rate 26 H 02/16/21 22:50 Blood Pressure 147/98 02/16/21 22:50 Pulse Oximetry 95 02/16/21 22:50 MDM - Chest Pain MDM Narrative: Medical decision making narrative: Care turned over to Dr. Fitzpatrick at change of shift see his note for final diagnosis and disposition. Lab Data: Labs: Lab Results 02/16/21 02/16/21 02/16/21 17:20 18:18 18:18 WBC 10.9 10^3/uL H 10 ^3/uL (4.0-10.0) RBC 4.93 10^6/uL 10^6 /uL (4.1-5.3) Hgb 14.0 g/dL g/dL (11.5-15.3) Hct 43.0 % % (37.0-47.0) MCV 87.2 fl fl (81-99) MCH 28.4 pg pg (28.0-34.0) MCHC 32.6 g/dL g/dL (30.0-36.0) RDW 12.8 % % (12.1-15.1) Plt Count 301 10^3/cmm 10^3 /cmm (130-400) MPV 10.8 fL H fL (7.4-10.4) Neut % (Auto) 68.8 % % Lymph % (Auto) 24.0 % % Thurston % (Auto) 5.5 % % Eos % (Auto) 0.8 % % Baso % (Auto) 0.4 % % Neut # (Auto) 7.51 10^3/uL 10^3 /uL (1.8-7.7) Lymph # (Auto) 2.6 10^3/uL 10^3/ uL (0.8-4.8) Thurston # (Auto) 0.6 10^3/uL 10^3/ uL (0.2-0.9) Eos # (Auto) 0.1 10^3/uL 10^3/ uL (0.0-0.8) Baso # (Auto) 0.0 10^3/uL 10^3/ uL (0.0-0.1) Nucleated RBC % (a uto) 0 % % Nucleated RBCs # 0.0 /100WBC /100W BC Specimen Type Arterial Sample Site Radial, left ABG pH 7.44 (7.35-7.45) ABG pCO2 34.6 mmHg L mmHg (35-45) ABG pO2 67.0 mmHg L mmHg (80.0-100.0) ABG HCO3 23.5 mmol/L mmol/ L (22-26) ABG O2 Saturation 94.8 ABG Base Excess -0.1 mmol/L mmol/ L (-2.0-2.0) Moncho Test Pos A-a O2 Gradient 5.4 mmHg mmHg (5-10) Hematocrit 41.0 % % (37-47) Hgb O2 Saturation 93.3 % L % (95-100) Carboxyhemoglobin 0.7 %THgb %THgb (0.4-20.1) Methemoglobin 0.9 % % (0.4-1.5) Total Hemoglobin 13.4 g/dL g/dL (12-16) Sodium 142.0 mmol/L mmol /L 139 mmol/L mmol/L (131-143) (136-145) Potassium 3.2 mmol/L L mmol /L 3.4 mmol/L L mmol /L (3.5-5.0) (3.5-5.1) Glucose 85.0 mg/dL mg/dL 80 mg/dL mg/dL (70-115) (65-115) Ionized Calcium 1.2 mmol/L mmol/L (1.1-1.4) O2 Delivery Device Room air Barge Master ID Gd Chloride 100 mmol/L mmol/L (98-107) Carbon Dioxide 23 mmol/L mmol/L (22-29) Anion Gap 19.4 H (5-19) BUN 7 mg/dL mg/dL (6-20) Creatinine 0.6 mg/dL mg/dL (0.5-0.9) GFR Calculation 123.9 mL/min mL/m in (90-130) Calculated Osmolal ity 285 mOsm/kg mOsm/ kg (285-295) Calcium 9.2 mg/dL mg/dL (8.5-10.5) Total Bilirubin 0.5 mg/dL mg/dL (0.15-1.2) AST 28 U/L U/L (0-32) ALT 44 U/L H U/L (0-33) Alkaline Phosphata se 77 IU/L IU/L (35-105) Troponin T Gen 5 n g/L Total Protein 7.2 g/dL g/dL (6.6-8.7) Albumin 4.4 g/dL g/dL (3.5-5.2) Globulin 2.8 g/dL g/dL (1.3-4.6) Lipase 24 U/L U/L (13-60) Urine Color Urine Appearance Urine pH Ur Specific Gravit y Urine Protein Urine Glucose (UA) Urine Ketones Urine Blood Urine Nitrate Urine Bilirubin Urine Urobilinogen Ur Leukocyte Paulina ase Urine RBC Urine WBC Ur Squamous Epith Cells Amorphous Sediment Urine Bacteria 02/16/21 02/16/21 18:18 18:25 WBC RBC Hgb Hct MCV MCH MCHC RDW Plt Count MPV Neut % (Auto) Lymph % (Auto) Thurston % (Auto) Eos % (Auto) Baso % (Auto) Neut # (Auto) Lymph # (Auto) Thurston # (Auto) Eos # (Auto) Baso # (Auto) Nucleated RBC % (a uto) Nucleated RBCs # Specimen Type Sample Site ABG pH ABG pCO2 ABG pO2 ABG HCO3 ABG O2 Saturation ABG Base Excess Moncho Test A-a O2 Gradient Hematocrit Hgb O2 Saturation Carboxyhemoglobin Methemoglobin Total Hemoglobin Sodium Potassium Glucose Ionized Calcium O2 Delivery Device Barge Master ID Chloride Carbon Dioxide Anion Gap BUN Creatinine GFR Calculation Calculated Osmolal ity Calcium Total Bilirubin AST ALT Alkaline Phosphata se Troponin T Gen 5 n g/L 6 ng/L ng/L (0-10) Total Protein Albumin Globulin Lipase Urine Color Yellow (Yellow) Urine Appearance Sl hazy (CLEAR) Urine pH 8 H (5-7) Ur Specific Gravit y 1.010 (1.005-1.030) Urine Protein Neg (Negative) Urine Glucose (UA) Norm (Normal) Urine Ketones 2+ H (Negative) Urine Blood Neg (Negative) Urine Nitrate Negative (Negative) Urine Bilirubin Neg (Negative) Urine Urobilinogen Norm mg/dL mg/dL (Negative) Ur Leukocyte Paulina ase Trace H (Negative) Urine RBC None /hpf /hpf (0-2) Urine WBC 5-10 /hpf H /hpf (0-5) Ur Squamous Epith Cells 25-40 /hpf H /hpf (0-5) Amorphous Sediment Not Reportable Urine Bacteria 1+ /hpf H /hpf (NONE) Discharge Plan Discharge Patient Disposition: Home Clinical Impression: Chest pain Condition: Stable Discharge Orders: Discharge ED (Routine); Ordered 02/17/21 Ordered By: Jone Fitzpatrick Referrals: Burke Dior MD [Primary Care Provider] - Discharge Diet: Advance as tolerated Discharge Activity: Resume usual activity Patient Instructions: Chest Pain (ED) Activity Restrictions/Additional Instructions: Come back to the emergency room if your chest pain worsens, have any fever or chills, worsening shortness of breath, worsening exertional lightheadedness, or any new or concerning complaints. Stand Alone Forms: Work/School Release Coding Level of Care Code ED Manufacturers Service Representative for Chg Fwd Exam Comprehensive Documented by User: Jone Fitzpatrick MD 02/17/21 01:34 HPI - Chest Pain General: Chief Complaint: Chest Pain Stated Complaint: SOB, CP, SAME YESTERDAY Time Seen by Provider: 02/16/21 16:43 Course Vital Signs: Vital signs: Vital Signs Temperature 98.2 F 11/18/21 13:28 Pulse Rate 78 02/16/21 22:50 Respiratory Rate 26 H 02/16/21 22:50 Blood Pressure 147/98 02/16/21 22:50 Pulse Oximetry 95 02/16/21 22:50 MDM - Chest Pain MDM Narrative: Medical decision making narrative: Given significant pain, CTA showed no dissection. Doubt ACS/PE or other emergent causes of chest pain. No suspicion for aortic dissection given no widened mediastinum, 2+ upper extremity pulses, or tearing pain. No suspicion for PE given no pleuritic chest pain, recent immobilization or surgery hemoptysis, or other VTE risk factors. EKG is non-ischemic. XR normal. Disposition: Discharge. Patient counseled regarding diagnostic impression, treatment plan. Patient given ED strict return precautions to return for continuation, worsening, or development of new symptoms. Instructed to f/u w/ PCP regarding symptoms today. Patient verbalized understanding. Lab Data: Labs: Lab Results 02/16/21 02/16/21 02/16/21 17:20 18:18 18:18 WBC 10.9 10^3/uL H 10 ^3/uL (4.0-10.0) RBC 4.93 10^6/uL 10^6 /uL (4.1-5.3) Hgb 14.0 g/dL g/dL (11.5-15.3) Hct 43.0 % % (37.0-47.0) MCV 87.2 fl fl (81-99) MCH 28.4 pg pg (28.0-34.0) MCHC 32.6 g/dL g/dL (30.0-36.0) RDW 12.8 % % (12.1-15.1) Plt Count 301 10^3/cmm 10^3 /cmm (130-400) MPV 10.8 fL H fL (7.4-10.4) Neut % (Auto) 68.8 % % Lymph % (Auto) 24.0 % % Thurston % (Auto) 5.5 % % Eos % (Auto) 0.8 % % Baso % (Auto) 0.4 % % Neut # (Auto) 7.51 10^3/uL 10^3 /uL (1.8-7.7) Lymph # (Auto) 2.6 10^3/uL 10^3/ uL (0.8-4.8) Thurston # (Auto) 0.6 10^3/uL 10^3/ uL (0.2-0.9) Eos # (Auto) 0.1 10^3/uL 10^3/ uL (0.0-0.8) Baso # (Auto) 0.0 10^3/uL 10^3/ uL (0.0-0.1) Nucleated RBC % (a uto) 0 % % Nucleated RBCs # 0.0 /100WBC /100W BC Specimen Type Arterial Sample Site Radial, left ABG pH 7.44 (7.35-7.45) ABG pCO2 34.6 mmHg L mmHg (35-45) ABG pO2 67.0 mmHg L mmHg (80.0-100.0) ABG HCO3 23.5 mmol/L mmol/ L (22-26) ABG O2 Saturation 94.8 ABG Base Excess -0.1 mmol/L mmol/ L (-2.0-2.0) Moncho Test Pos A-a O2 Gradient 5.4 mmHg mmHg (5-10) Hematocrit 41.0 % % (37-47) Hgb O2 Saturation 93.3 % L % (95-100) Carboxyhemoglobin 0.7 %THgb %THgb (0.4-20.1) Methemoglobin 0.9 % % (0.4-1.5) Total Hemoglobin 13.4 g/dL g/dL (12-16) Sodium 142.0 mmol/L mmol /L 139 mmol/L mmol/L (131-143) (136-145) Potassium 3.2 mmol/L L mmol /L 3.4 mmol/L L mmol /L (3.5-5.0) (3.5-5.1) Glucose 85.0 mg/dL mg/dL 80 mg/dL mg/dL (70-115) (65-115) Ionized Calcium 1.2 mmol/L mmol/L (1.1-1.4) O2 Delivery Device Room air Barge Master ID Gd Chloride 100 mmol/L mmol/L (98-107) Carbon Dioxide 23 mmol/L mmol/L (22-29) Anion Gap 19.4 H (5-19) BUN 7 mg/dL mg/dL (6-20) Creatinine 0.6 mg/dL mg/dL (0.5-0.9) GFR Calculation 123.9 mL/min mL/m in (90-130) Calculated Osmolal ity 285 mOsm/kg mOsm/ kg (285-295) Calcium 9.2 mg/dL mg/dL (8.5-10.5) Total Bilirubin 0.5 mg/dL mg/dL (0.15-1.2) AST 28 U/L U/L (0-32) ALT 44 U/L H U/L (0-33) Alkaline Phosphata se 77 IU/L IU/L (35-105) Troponin T Gen 5 n g/L Total Protein 7.2 g/dL g/dL (6.6-8.7) Albumin 4.4 g/dL g/dL (3.5-5.2) Globulin 2.8 g/dL g/dL (1.3-4.6) Lipase 24 U/L U/L (13-60) Urine Color Urine Appearance Urine pH Ur Specific Gravit y Urine Protein Urine Glucose (UA) Urine Ketones Urine Blood Urine Nitrate Urine Bilirubin Urine Urobilinogen Ur Leukocyte Paulina ase Urine RBC Urine WBC Ur Squamous Epith Cells Amorphous Sediment Urine Bacteria 02/16/21 02/16/21 18:18 18:25 WBC RBC Hgb Hct MCV MCH MCHC RDW Plt Count MPV Neut % (Auto) Lymph % (Auto) Thurston % (Auto) Eos % (Auto) Baso % (Auto) Neut # (Auto) Lymph # (Auto) Thurston # (Auto) Eos # (Auto) Baso # (Auto) Nucleated RBC % (a uto) Nucleated RBCs # Specimen Type Sample Site ABG pH ABG pCO2 ABG pO2 ABG HCO3 ABG O2 Saturation ABG Base Excess Moncho Test A-a O2 Gradient Hematocrit Hgb O2 Saturation Carboxyhemoglobin Methemoglobin Total Hemoglobin Sodium Potassium Glucose Ionized Calcium O2 Delivery Device Barge Master ID Chloride Carbon Dioxide Anion Gap BUN Creatinine GFR Calculation Calculated Osmolal ity Calcium Total Bilirubin AST ALT Alkaline Phosphata se Troponin T Gen 5 n g/L 6 ng/L ng/L (0-10) Total Protein Albumin Globulin Lipase Urine Color Yellow (Yellow) Urine Appearance Sl hazy (CLEAR) Urine pH 8 H (5-7) Ur Specific Gravit y 1.010 (1.005-1.030) Urine Protein Neg (Negative) Urine Glucose (UA) Norm (Normal) Urine Ketones 2+ H (Negative) Urine Blood Neg (Negative) Urine Nitrate Negative (Negative) Urine Bilirubin Neg (Negative) Urine Urobilinogen Norm mg/dL mg/dL (Negative) Ur Leukocyte Paulina ase Trace H (Negative) Urine RBC None /hpf /hpf (0-2) Urine WBC 5-10 /hpf H /hpf (0-5) Ur Squamous Epith Cells 25-40 /hpf H /hpf (0-5) Amorphous Sediment Not Reportable Urine Bacteria 1+ /hpf H /hpf (NONE) Imaging Data^: Other Imaging: Radiologist's impression: [employer] [place], [place] [address]KF Scan ReportSigned Patient: Liz Webster #: [id number]: 1995Acct#:[id number]/Sex: 25 / FADM Date: 02/16/21Loc: ERRoom/Bed:Attending Dr: Ordering Provider/Ordering MD: Jone Fitzpatrick MD Date of Service: 02/16/21 Procedure(s): CT angio chest PE protcl [id number] Accession Number(s): [id number] Report Number: [id number] PROCEDURE INFORMATION: Exam: CTA Chest With Contrast Exam date and time: 02/16/2021 9:15 PM Age: 25 years old Clinical indication: Shortness of breath; Chest pressure; Patient HX: Chest pain with SOB. Exam attempted three times. Best exam submitted. ; Additional info: Eval pe TECHNIQUE: Imaging protocol: Computed tomographic angiography of the chest with contrast. 3D rendering (Not supervised by radiologist): MIP and/or 3D reconstructed images were created by the technologist. Radiation optimization: All CT scans at this facility use at least one of these dose optimization techniques: automated exposure control; mA and/or kV adjustment per patient size (includes targeted exams where dose is matched to clinical indication); or iterative reconstruction. Contrast material: OMNI 350; Contrast volume: 191 ml; Contrast route: INTRAVENOUS (IV); COMPARISON: CR XR chest 1V portable [id number] 02/16/2021 5:07 PM RADIATION DOSE METRICS: Total DLP (mGy-cm): 2445.64 FINDINGS: Pulmonary arteries: Normal. No pulmonary emboli. Aorta: Unremarkable. No aortic aneurysm. No aortic dissection. Lungs: Unremarkable. No consolidation. No masses. Pleural spaces: Unremarkable. No pneumothorax. No pleural effusion. Heart: Unremarkable. No cardiomegaly. No pericardial effusion. Mediastinal space: Residual thymic tissue in the anterior mediastinum. Lymph nodes: Unremarkable. No enlarged lymph nodes. Gallbladder and bile ducts: Cholecystectomy. The bile ducts are normal. Bones/joints: Unremarkable. No acute fracture. Soft tissues: Unremarkable. CT/CT angio chest PE protcl [id number] IMPRESSION: 1. No evidence for pulmonary embolus or other acute finding. Radiation Dose CTDIVOL = (mGy): DLP = 2445.64 (mGy-cm) Dictated By:Shasta Arellano By:Shasta Arellano Date/Time:02/17/21 0003DD/ 14 Discharge Plan Discharge Patient Disposition: Home Clinical Impression: Chest pain Condition: Stable Discharge Orders: Discharge ED (Routine); Ordered 02/17/21 Ordered By: Jone Fitzpatrick Referrals: Burke Dior MD [Primary Care Provider] - Discharge Diet: Advance as tolerated Discharge Activity: Resume usual activity Patient Instructions: Chest Pain (ED) Activity Restrictions/Additional Instructions: Come back to the emergency room if your chest pain worsens, have any fever or chills, worsening shortness of breath, worsening exertional lightheadedness, or any new or concerning complaints. Stand Alone Forms: Work/School Release Coding Level of Care Code ED Manufacturers Service Representative for Liliana Fwd Exam Comprehensive
[2021-02-16 17:38] LABS: ABG PCO2 34.6 mmHg (35-45); ABG PH Result 7.44 (7.35-7.45); Alveolar-Arterial Oxygen Gradi 5.4 mmHg (5-10); Base Excess ABG -0.1 mmol/L (-2.0-2.0); Blood Gas Allen Test Pos; Blood Gas Operator Identificat GD; Blood Gas Sample Site Radial, left; Blood Gas Sample Type Arterial; Carboxyhemoglobin 0.7 %THgb (0.4-20.1); HCO3 ABG 23.5 mmol/L (22-26); HGB O2 Sat 93.3 % (95-100); Ionized Calcium Level - ABG 1.2 mmol/L (1.1-1.4); Methemoglobin 0.9 % (0.4-1.5); Oxygen Device ROOM AIR; Oxygen Saturation ABG 94.8; Potassium Level - ABG 3.2 mmol/L (3.5-5.0); Total Hemoglobin 13.4 g/dL (12-16)
[2021-02-16 17:55] VITALS: BP 135/101; PULSE 98; RESP 18; O2SAT 96
--- NOTE | 2021-02-16 18:14 | PC.NURSE ---
cardiac monitoring, and monitoring of BP, SpO2 initiated upon arrival into room.
[2021-02-16 18:24] LABS: Basophils % 0.4 %; Eosinophils # 0.1 10^3/uL (0.0-0.8); Eosinophils % 0.8 %; Lymphocytes # 2.6 10^3/uL (0.8-4.8); Mean Corpuscular HGB Conc 32.6 g/dL (30.0-36.0); Mean Corpuscular Hemoglobin 28.4 pg (28.0-34.0); Mean Corpuscular Volume 87.2 fl (81-99); Mean Platelet Volume 10.8 fL (7.4-10.4); Monocytes # 0.6 10^3/uL (0.2-0.9); Monocytes % 5.5 %; Neutrophils # 7.51 10^3/uL (1.8-7.7); Neutrophils % 68.8 %; Nucleated Red Blood Cells % 0 %; Platelet Count 301 10^3/cmm (130-400); Red Blood Count 4.93 10^6/uL (4.1-5.3); Red Cell Distribution Width 12.8 % (12.1-15.1); White Blood Count 10.9 10^3/uL (4.0-10.0)
[2021-02-16] MEDS: acetaminophen 500 mg Tablet 1000 MG PO (18:33)
[2021-02-16 18:34] VITALS: BP 137/91; BP 149/119; BP 159/111; PULSE 103; PULSE 81; PULSE 96
[2021-02-16 18:39] VITALS: BP 149/119; PULSE 118; RESP 18
[2021-02-16 18:53] LABS: Add Urine Microscopic? YES; Bilirubin Urine Neg (Negative); Blood Urine Neg (Negative); Glucose Urine UA Norm (Normal); Ketones Urine 2+ (Negative); Leukocyte Esterase Urine Trace (Negative); Nitrate Urine Negative (Negative); Protein Urine Neg (Negative); Urine Appearance SL Hazy (CLEAR); Urine Color Yellow (Yellow); Urobilinogen Urine Norm (Negative); pH Urine 8 (5-7)
[2021-02-16 19:03] LABS: Alanine Aminotransferase 44 U/L (0-33); Albumin Level 4.4 g/dL (3.5-5.2); Alkaline Phosphatase 77 IU/L (35-105); Anion Gap 19.4 (5-19); Aspartate Amino Transferase 28 U/L (0-32); Blood Urea Nitrogen 7 mg/dL (6-20); Calcium 9.2 mg/dL (8.5-10.5); Carbon Dioxide 23 mmol/L (22-29); Chloride 100 mmol/L (98-107); Globulin 2.8 g/dL (1.3-4.6); Glomerular Filtration Rate 123.9 mL/min (90-130); Glucose 80 mg/dL (65-115); Lipase 24 U/L (13-60); Osmolality Calculated 285 mOsm/kg (285-295); Potassium 3.4 mmol/L (3.5-5.1); Sodium 139 mmol/L (136-145); Total Bilirubin 0.5 mg/dL (0.15-1.2); Total Protein 7.2 g/dL (6.6-8.7); Troponin T (5th) Once 6 ng/L (0-10)
[2021-02-16 19:04] LABS: Add Urine Culture? No; Bacteria Urine 1+ /hpf; Squamous Epithelial Cell Urine 25-40 /hpf (0-5)
[2021-02-16] MEDS: ibuprofen 200 mg Tablet 400 MG PO (21:09)
--- NOTE | 2021-02-16 21:15 | CTR_ITS ---
PROCEDURE INFORMATION: Exam: CTA Chest With Contrast Exam date and time: 02/16/2021 9:15 PM Age: 25 years old Clinical indication: Shortness of breath; Chest pressure; Patient HX: Chest pain with SOB. Exam attempted three times. Best exam submitted. ; Additional info: Eval pe TECHNIQUE: Imaging protocol: Computed tomographic angiography of the chest with contrast. 3D rendering (Not supervised by radiologist): MIP and/or 3D reconstructed images were created by the technologist. Radiation optimization: All CT scans at this facility use at least one of these dose optimization techniques: automated exposure control; mA and/or kV adjustment per patient size (includes targeted exams where dose is matched to clinical indication); or iterative reconstruction. Contrast material: OMNI 350; Contrast volume: 191 ml; Contrast route: INTRAVENOUS (IV); COMPARISON: CR XR chest 1V portable [id number] 02/16/2021 5:07 PM RADIATION DOSE METRICS: Total DLP (mGy-cm): 2445.64 FINDINGS: Pulmonary arteries: Normal. No pulmonary emboli. Aorta: Unremarkable. No aortic aneurysm. No aortic dissection. Lungs: Unremarkable. No consolidation. No masses. Pleural spaces: Unremarkable. No pneumothorax. No pleural effusion. Heart: Unremarkable. No cardiomegaly. No pericardial effusion. Mediastinal space: Residual thymic tissue in the anterior mediastinum. Lymph nodes: Unremarkable. No enlarged lymph nodes. Gallbladder and bile ducts: Cholecystectomy. The bile ducts are normal. Bones/joints: Unremarkable. No acute fracture. Soft tissues: Unremarkable. CT/CT angio chest PE protcl [id number] IMPRESSION: 1. No evidence for pulmonary embolus or other acute finding. Radiation Dose CTDIVOL = (mGy): DLP = 2445.64 (mGy-cm)
[2021-02-16 22:13] VITALS: BP 136/83; PULSE 88; RESP 20; O2SAT 96
[2021-02-16 22:50] VITALS: BP 147/98; PULSE 78; RESP 26; O2SAT 95
[2021-02-16] MEDS: iohexol 350 mg/mL 100 mL Btl IV ×3 (23:40→23:50)
== END 2021-02-17 00:53 | disposition home or self-care (01) ==
PROVIDERS: Family Medicine; Emergency Provider Emergency Medicine; PCP Family Medicine
DX: R07.9 Chest pain, unspecified (principal)
CPT/HCPCS: 36415; 36600; 71045; 71275; 80051; 80053; 81001; 82330; 82805; 83690; 84484; 85025; 93005; 99284; Q9967

== ENCOUNTER → 2021-05-27 16:04 | Outpatient (BNVA) | payer OTHER, SELFPAY | PROVIDERS: PCP Family Medicine; Visit Provider Nurse Practitioner | DX: S69.92XA Unspecified injury of left wrist, hand and finger(s), initial encounter (principal); W19.XXXA Unspecified fall, initial encounter | CPT/HCPCS: 73110 ==

== ENCOUNTER 2021-06-30 22:56 | Emergency (ER) | payer OTHER, SELFPAY ==
[2021-06-30 23:01] VITALS: BP 144/93; PULSE 95; RESP 20; TEMP 36.6; O2SAT 97; BMI 47.2
--- NOTE | 2021-06-30 23:11 | W.ED.ABDPA2 ---
Documented by User: SONIA Lazaro 07/01/21 01:09 HPI - Abdominal Pain General: Chief Complaint: Abdominal Pain Stated Complaint: sharp pains in stomach Time Seen by Provider: 06/30/21 23:09 History of Present Illness: 25-year-old female comes in today with complaints of nausea vomiting and diarrhea over the last 3 days. Patient was prompted to come in this evening due to epigastric discomfort. Patient reports the pain just seems of become worse over this episode. Patient reports exposure to other individuals that have been similarly ill. Patient has had her gallbladder removed. Patient denies any routine medications. Patient is morbidly obese. MD elicited complaint: abdominal pain Onset (ago): day(s) Pain Consistency: intermittent Location: Epigastric Quality: sharp Radiation: back Associated Symptoms: Reports diarrhea, nausea and vomiting; Denies fever(s) Related Data: Date of Last Menstrual Period: 05/30/21 Patient : No Review of Systems General: Reports: 10 or more systems reviewed and unremarkable except in HPI and below Const: Denies: fever(s) or malaise ENMT: Denies: throat pain Card: Denies: chest pain Resp: Denies: dyspnea GI: Reports: nausea, vomiting and diarrhea : Denies: difficulty voiding Musc: Reports: back pain Skin/Breast: Denies: rash PFSH ED PFSH: Social History Smoking and tobacco status: never smoked Female Reproductive History: Date of last menstrual period: 05/30/21 Physical Exam Const: COMMON NORMALS: alert HENMT: COMMON NORMALS: normocephalic HEAD & SCALP: normocephalic NOSE: no Nasal discharge present THROAT: posterior oropharynx abnormal erythema Neck/C-Spine: COMMON NORMALS: full ROM, no lymphadenopathy and no meningeal signs Resp: COMMON NORMALS: normal respiratory effort and clear to auscultation bilaterally AUSCULTATION: clear to auscultation bilaterally Cardio: COMMON NORMALS: regular rate and regular rhythm RATE: regular rate RHYTHM: regular rhythm GI: COMMON NORMALS: Soft to palpation and non-tender AUSCULTATION: Yes Hyperactive bowel sounds present PALPATION: Yes Soft to palpation and Yes Tenderness to palpation present (GI) (mid epigastric) : COMMON NORMALS: Yes no CVA tenderness BLADDER/KIDNEY EXAM: Yes no CVA tenderness Back/Pelvis: COMMON NORMALS: no CVA tenderness Neuro: SENSORIUM/ORIENTATION: Yes alert MENINGEAL SIGNS: Yes no meningeal signs Psych: COMMON NORMALS: cooperative Skin: COMMON NORMALS: no wounds Course Vital Signs: Vital signs: Vital Signs Temperature 97.9 F 06/30/21 23:01 Pulse Rate 74 07/01/21 01:07 Respiratory Rate 16 07/01/21 01:07 Blood Pressure 124/72 07/01/21 01:07 Pulse Oximetry 98 07/01/21 01:07 MDM - Abdominal Pain Medical Decision Making 25-year-old female comes in today with complaints of midepigastric abdominal pain. Patient states that she has had diarrhea with nausea and vomiting for the last 3 days. Patient reports worsening pain tonight midepigastric region. On exam abdomen is tender in the upper central area of the abdomen. Bowel sounds are hyperactive. Skin is warm and dry. Vital signs are normal. Differential diagnosis includes but not limited to pancreatitis, bowel obstruction, gastroenteritis. Laboratory values noted a white count of 10.7, lipase was normal, CMP was unremarkable except for 1.[address] of the abdomen and pelvis indicated prominent small bowel loops suggesting gastroenteritis. Patient was given 1 L of IV fluids, 4 mg of ondansetron, and 4 mg of IV morphine. Patient had improvement of symptoms and felt better. Patient will be continued on ondansetron for nausea and dicyclomine for abdominal cramping. Patient reported understanding of care plan need for follow-up or return to the ER for worsening pain, high fever, or blood in vomit or stool. Lab Data : 06/30/21 23:18 06/30/21 23:18 Labs/Radiology: Radiology Impressions Abdomen/Pelvis CT 06/30/21 23:42 IMPRESSION: There are few loops of mildly prominent small bowel , nonspecific but may be seen with gastroenteritis. Laboratory Results WBC 10.7 10^3/uL (4.0-10.0) H 06/30/21 23:18 RBC 5.13 10^6/uL (4.1-5.3) 06/30/21 23:18 Hgb 14.3 g/dL (11.5-15.3) 06/30/21 23:18 Hct 44.5 % (37.0-47.0) 06/30/21 23:18 MCV 86.7 fl (81-99) 06/30/21 23:18 MCH 27.9 pg (28.0-34.0) L 06/30/21 23:18 MCHC 32.1 g/dL (30.0-36.0) 06/30/21 23:18 RDW 12.9 % (12.1-15.1) 06/30/21 23:18 Plt Count 286 10^3/cmm (130-400) 06/30/21 23:18 MPV 11.7 fL (7.4-10.4) H 06/30/21 23:18 Neut % (Auto) 69.7 % 06/30/21 23:18 Lymph % (Auto) 21.8 % 06/30/21 23:18 [place] % (Auto) 6.4 % 06/30/21 23:18 Eos % (Auto) 1.5 % 06/30/21 23:18 Baso % (Auto) 0.3 % 06/30/21 23:18 Neut # (Auto) 7.46 10^3/uL (1.8-7.7) 06/30/21 23:18 Lymph # (Auto) 2.3 10^3/uL (0.8-4.8) 06/30/21 23:18 [place] # (Auto) 0.7 10^3/uL (0.2-0.9) 06/30/21 23:18 Eos # (Auto) 0.2 10^3/uL (0.0-0.8) 06/30/21 23:18 Baso # (Auto) 0.0 10^3/uL (0.0-0.1) 06/30/21 23:18 Nucleated RBC % (auto) 0 % 06/30/21 23:18 Nucleated RBCs # 0.0 /100WBC 06/30/21 23:18 Sodium 138 mmol/L (136-145) 06/30/21 23:18 Potassium 3.8 mmol/L (3.5-5.1) 06/30/21 23:18 Chloride 101 mmol/L (98-107) 06/30/21 23:18 Carbon Dioxide 27 mmol/L (22-29) 06/30/21 23:18 Anion Gap 13.8 (5-19) 06/30/21 23:18 BUN 12 mg/dL (6-20) 06/30/21 23:18 Creatinine 1.0 mg/dL (0.5-0.9) H 06/30/21 23:18 GFR Calculation 68.7 mL/min (90-130) L 06/30/21 23:18 Glucose 93 mg/dL (65-115) 06/30/21 23:18 Calculated Osmolality 285 mOsm/kg (285-295) 06/30/21 23:18 Calcium 9.7 mg/dL (8.5-10.5) 06/30/21 23:18 Total Bilirubin 0.4 mg/dL (0.15-1.2) 06/30/21 23:18 AST 25 U/L (0-32) 06/30/21 23:18 ALT 36 U/L (0-33) H 06/30/21 23:18 Alkaline Phosphatase 70 IU/L (35-105) 06/30/21 23:18 Total Protein 7.3 g/dL (6.6-8.7) 06/30/21 23:18 Albumin 4.7 g/dL (3.5-5.2) 06/30/21 23:18 Globulin 2.6 g/dL (1.3-4.6) 06/30/21 23:18 Lipase 27 U/L (13-60) 06/30/21 23:18 HCG, Qual Negative (Negative) 06/30/21 23:18 Urine Color Yellow (Yellow) 07/01/21 00:40 Urine Appearance Sl cloudy (CLEAR) A 07/01/21 00:40 Urine pH 6.5 (5-7) 07/01/21 00:40 Ur Specific [place] 1.015 (1.005-1.030) 07/01/21 00:40 Urine Protein Neg (Negative) 07/01/21 00:40 Urine Glucose (UA) Norm (Normal) 07/01/21 00:40 Urine Ketones Negative (Negative) 07/01/21 00:40 Urine Blood Neg (Negative) 07/01/21 00:40 Urine Nitrate Negative (Negative) 07/01/21 00:40 Urine Bilirubin Neg (Negative) 07/01/21 00:40 Urine Urobilinogen Norm mg/dL (Negative) 07/01/21 00:40 Ur Leukocyte Esterase Negative (Negative) 07/01/21 00:40 Urine RBC 0-4 /hpf (0-2) H 07/01/21 00:40 Urine WBC 10-15 /hpf (0-5) H 07/01/21 00:40 Ur Squamous Epith Cells 25-40 /hpf (0-5) H 07/01/21 00:40 Amorphous Sediment Not Reportable 07/01/21 00:40 Urine Bacteria 2+ /hpf (NONE) H 07/01/21 00:40 Discharge Plan Discharge Patient Disposition: Home Clinical Impression: Gastroenteritis Condition: Stable Prescriptions: New ondansetron 4 mg tablet,disintegrating 4 mg PO Q8H PRN (Reason: nausea and vomiting) Qty: 10 0RF dicyclomine 20 mg tablet 20 mg PO TID PRN (Reason: abdominal pain) Qty: 14 0RF Discharge Orders: Discharge ED (Routine); Ordered 07/01/21 Ordered By: Cosme Rosado Referrals: Burke Dior MD [Primary Care Provider] - Discharge Diet: Usual diet Discharge Activity: Increase activity as tolerated Patient Instructions: Gastroenteritis (ED) Activity Restrictions/Additional Instructions: Use medications as directed. Drink plenty of fluids. Drinking electrolyte solution such as Pedialyte until diarrhea resolves. Follow-up with primary care in 3 days. Return to the emergency department for worsening symptoms such as blood in vomit or stool, fever greater than 100.4, or new concerns. Coding Level of Care Code ED Youth Officer for Chg Fwd Exam Comprehensive Documented by User: Carlos Manuel Alexander DO 07/01/21 02:16 HPI - Abdominal Pain General: Chief Complaint: Abdominal Pain Stated Complaint: sharp pains in stomach Time Seen by Provider: 06/30/21 23:09 [facility] ED PFSH: Social History Smoking and tobacco status: never smoked Course Vital Signs: Vital signs: Vital Signs Temperature 97.9 F 06/30/21 23:01 Pulse Rate 74 07/01/21 01:07 Respiratory Rate 16 07/01/21 01:07 Blood Pressure 124/72 07/01/21 01:07 Pulse Oximetry 98 07/01/21 01:07 MDM - Abdominal Pain Medical Decision Making 25-year-old female comes in today with complaints of midepigastric abdominal pain. Patient states that she has had diarrhea with nausea and vomiting for the last 3 days. Patient reports worsening pain tonight midepigastric region. On exam abdomen is tender in the upper central area of the abdomen. Bowel sounds are hyperactive. Skin is warm and dry. Vital signs are normal. Differential diagnosis includes but not limited to pancreatitis, bowel obstruction, gastroenteritis. Laboratory values noted a white count of 10.7, lipase was normal, CMP was unremarkable except for 1.[address] of the abdomen and pelvis indicated prominent small bowel loops suggesting gastroenteritis. Patient was given 1 L of IV fluids, 4 mg of ondansetron, and 4 mg of IV morphine. Patient had improvement of symptoms and felt better. Patient will be continued on ondansetron for nausea and dicyclomine for abdominal cramping. Patient reported understanding of care plan need for follow-up or return to the ER for worsening pain, high fever, or blood in vomit or stool. This patient was originally seen by SONIA Espino.? I agree with his history, evaluation, and treatment. Lab Data : 06/30/21 23:18 06/30/21 23:18 Labs/Radiology: Radiology Impressions Abdomen/Pelvis CT 06/30/21 23:42
[2021-06-30 23:29] LABS: Basophils % 0.3 %; Eosinophils # 0.2 10^3/uL (0.0-0.8); Eosinophils % 1.5 %; Hematocrit 44.5 % (37.0-47.0); Hemoglobin 14.3 g/dL (11.5-15.3); Lymphocytes # 2.3 10^3/uL (0.8-4.8); Lymphocytes % 21.8 %; Mean Corpuscular HGB Conc 32.1 g/dL (30.0-36.0); Mean Corpuscular Hemoglobin 27.9 pg (28.0-34.0); Mean Corpuscular Volume 86.7 fl (81-99); Mean Platelet Volume 11.7 fL (7.4-10.4); Monocytes # 0.7 10^3/uL (0.2-0.9); Monocytes % 6.4 %; Neutrophils # 7.46 10^3/uL (1.8-7.7); Neutrophils % 69.7 %; Nucleated Red Blood Cells % 0 %; Platelet Count 286 10^3/cmm (130-400); Red Blood Count 5.13 10^6/uL (4.1-5.3); Red Cell Distribution Width 12.9 % (12.1-15.1); White Blood Count 10.7 10^3/uL (4.0-10.0)
--- NOTE | 2021-06-30 23:42 | CTR_ITS ---
PROCEDURE INFORMATION: Exam: CT Abdomen And Pelvis With Contrast Exam date and time: 07/01/2021 12:12 AM Age: 25 years old Clinical indication: Nausea and vomiting; Abdominal pain; Generalized; Patient HX: Abd pain with n/v/d. ; Additional info: Abd pain, n/v/d TECHNIQUE: Imaging protocol: Computed tomography of the abdomen and pelvis with contrast. Radiation optimization: All CT scans at this facility use at least one of these dose optimization techniques: automated exposure control; mA and/or kV adjustment per patient size (includes targeted exams where dose is matched to clinical indication); or iterative reconstruction. Contrast material: OMNI 300; Contrast volume: 95 ml; Contrast route: INTRAVENOUS (IV); COMPARISON: CT abdomen pelvis w con* [id number] 11/28/2015 9:02 AM RADIATION DOSE METRICS: Total DLP (mGy-cm): 1822.12 FINDINGS: Lungs: The lung bases are clear. No effusion Liver: Normal. No mass. Gallbladder and bile ducts: There has been a cholecystectomy. Pancreas: Normal. No ductal dilation. Spleen: Normal. No splenomegaly. Adrenal glands: Normal. No mass. Kidneys and ureters: See Vasculature finding. Stomach and bowel: There are few loops of mildly prominent small bowel , nonspecific but may be seen with gastroenteritis. Appendix: No evidence of appendicitis. Intraperitoneal space: Unremarkable. No free air. No significant fluid collection. Vasculature: Retroaortic left renal vein. Lymph nodes: Unremarkable. No enlarged lymph nodes. Urinary bladder: Unremarkable as visualized. Reproductive: Unremarkable as visualized. Bones/joints: Unremarkable. No acute fracture. Soft tissues: Unremarkable. CT/CT abdomen pelvis w con* [id number] IMPRESSION: There are few loops of mildly prominent small bowel , nonspecific but may be seen with gastroenteritis.
[2021-06-30] MEDS: morphine 4 mg/mL SDV 1 mL IVP (23:43)
[2021-06-30] MEDS: sodium chloride 0.9% 1,000 ML 999 ML IV (23:44)
[2021-06-30] MEDS: famotidine 20 mg/2 mL INJ 40 MG IVP (23:44)
[2021-06-30] MEDS: ondansetron 2 mg/ML SDV 2 mL 4 MG IVP (23:44)
[2021-06-30] MEDS: alum-mag-hydroxide-sime 30 mL UDC PO (23:44)
[2021-06-30 23:45] LABS: HCG, Serum Qual Negative (Negative)
[2021-06-30 23:54] LABS: Alanine Aminotransferase 36 U/L (0-33); Albumin Level 4.7 g/dL (3.5-5.2); Alkaline Phosphatase 70 IU/L (35-105); Anion Gap 13.8 (5-19); Aspartate Amino Transferase 25 U/L (0-32); Blood Urea Nitrogen 12 mg/dL (6-20); Calcium 9.7 mg/dL (8.5-10.5); Carbon Dioxide 27 mmol/L (22-29); Chloride 101 mmol/L (98-107); Globulin 2.6 g/dL (1.3-4.6); Glomerular Filtration Rate 68.7 mL/min (90-130); Glucose 93 mg/dL (65-115); Lipase 27 U/L (13-60); Osmolality Calculated 285 mOsm/kg (285-295); Potassium 3.8 mmol/L (3.5-5.1); Sodium 138 mmol/L (136-145); Total Bilirubin 0.4 mg/dL (0.15-1.2); Total Protein 7.3 g/dL (6.6-8.7)
[2021-07-01] MEDS: iohexol 300 mg/mL 100 mL Btl IV (00:12)
[2021-07-01 01:05] LABS: Add Urine Microscopic? YES; Bilirubin Urine Neg (Negative); Blood Urine Neg (Negative); Glucose Urine UA Norm (Normal); Ketones Urine Negative (Negative); Leukocyte Esterase Urine Negative (Negative); Nitrate Urine Negative (Negative); Protein Urine Neg (Negative); Specific Gravity, Urine 1.015 (1.005-1.030); Urine Color Yellow (Yellow); Urobilinogen Urine Norm (Negative); pH Urine 6.5 (5-7)
[2021-07-01 01:06] LABS: Add Urine Culture? No; Bacteria Urine 2+ /hpf; RBC Urine 0-4 /hpf (0-2); Squamous Epithelial Cell Urine 25-40 /hpf (0-5)
[2021-07-01 01:07] VITALS: BP 124/72; PULSE 74; RESP 16; O2SAT 98
== END 2021-07-01 01:08 | disposition home or self-care (01) ==
PROVIDERS: Emergency Provider Nurse Practitioner Family; PCP Family Medicine
DX: K52.9 Noninfective gastroenteritis and colitis, unspecified (principal)
CPT/HCPCS: 74177; 80053; 81001; 83690; 84703; 85025; 96361; 96374; 96375; 99283; J2270; J2405; J3490; J7030; Q9967

== ENCOUNTER 2021-09-11 18:11 | Emergency (ER) | payer OTHER, SELFPAY ==
[2021-09-11 18:34] VITALS: BP 167/107; PULSE 75; RESP 16; TEMP 36.6; O2SAT 98
--- NOTE | 2021-09-11 21:06 | CTR_ITS ---
PROCEDURE INFORMATION: Exam: CT Abdomen And Pelvis Without Contrast Exam date and time: 09/11/2021 11:09 PM Age: 26 years old Clinical indication: Abdominal pain; Generalized; Prior surgery; Surgery date: 6+ months; Surgery type: Theodora; Additional info: Abd pain TECHNIQUE: Imaging protocol: Computed tomography of the abdomen and pelvis without contrast. Radiation optimization: All CT scans at this facility use at least one of these dose optimization techniques: automated exposure control; mA and/or kV adjustment per patient size (includes targeted exams where dose is matched to clinical indication); or iterative reconstruction. COMPARISON: CT abdomen pelvis w con* [id number] 07/01/2021 12:12 AM RADIATION DOSE METRICS: Total DLP (mGy-cm): 1910.6 FINDINGS: Liver: Normal. No mass. Gallbladder and bile ducts: Cholecystectomy. Pancreas: Normal. No ductal dilation. Spleen: Normal. No splenomegaly. Adrenal glands: Normal. No mass. Kidneys and ureters: Normal. No hydronephrosis. Stomach and bowel: Unremarkable. No obstruction. No mucosal thickening. Appendix: No evidence of appendicitis. Intraperitoneal space: Unremarkable. No free air. No significant fluid collection. Vasculature: Unremarkable. No abdominal aortic aneurysm. Lymph nodes: Unremarkable. No enlarged lymph nodes. Urinary bladder: Unremarkable as visualized. Reproductive: Unremarkable as visualized. Bones/joints: Unremarkable. No acute fracture. Soft tissues: Unremarkable. CT/CT abdomen pelvis con [id number] IMPRESSION: 1. Negative for acute inflammatory process in the abdomen or pelvis. 2. Cholecystectomy.
--- NOTE | 2021-09-11 21:08 | ED_ITS ---
HPI - Abdominal Pain General: Chief Complaint: Abdominal Pain Stated Complaint: abd pain Time Seen by Provider: 09/11/21 20:58 Source: patient Mode of arrival: ambulatory Limitations: no limitations History of Present Illness: 26-year-old female states that she has been having diffuse generalized abdominal pain over the last week. She has had a cholecystectomy in the past she states she saw her PCP who thought it could be gastritis is started on ripe resolved and she states she had no improvement. She states that her diffuse abdomen is sharp in nature rates it a 7 out of 10 denies any vomiting or diarrhea denies any fevers. Denies any worsening improving factors. Associated Symptoms: Denies chills, dysuria and fever(s) Related Data: Date of Last Menstrual Period: 05/30/21 Review of Systems Const: Denies: fever(s), chills, body aches or change in appetite Eyes: Denies: blurry vision or eye discomfort ENMT: Denies: throat pain or dental pain Card: Denies: chest pain Resp: Denies: dyspnea GI: Reports: abdominal pain : Denies: dysuria Musc: Denies: neck pain or back pain Skin/Breast: Denies: rash Neuro: Denies: headache(s) Psych: Denies: depression [place]/Lymph: Denies: easy bruising All/Imm: Denies: urticaria PFSH ED PFSH: Surgical History (Updated 09/11/21 @ 21:08 by Ally Fowler MD) History of cholecystectomy Social History Smoking and tobacco status: never smoked Female Reproductive History: Date of last menstrual period: 05/30/21 Physical Exam Const: COMMON NORMALS: no acute distress, patient oriented x3 and healthy appearing HENMT: COMMON NORMALS: normocephalic and atraumatic HEAD & SCALP: normocephalic and atraumatic Eye: COMMON NORMALS: Equal, round and reactive pupils present and EOMs intact bilaterally PUPIL: Yes Equal, round and reactive pupils present Neck/C-Spine: COMMON NORMALS: full ROM and supple Chest: COMMONS NORMALS: normal inspection of the chest and normal palpation of entire chest wall Resp: COMMON NORMALS: normal respiratory effort, No retractions, No use of accessory muscles and clear to auscultation bilaterally AUSCULTATION: clear to auscultation bilaterally Cardio: COMMON NORMALS: regular rate, regular rhythm and No murmurs present (Cardio) RATE: regular rate RHYTHM: regular rhythm GI: COMMON NORMALS: Normal to inspection, nondistended, normoactive bowel sounds present, Soft to palpation and no masses PALPATION: Yes Soft to palpation OTHER: diffuse mild tenderness Extremity: COMMON NORMALS: normal to inspection and full ROM Neuro: COMMON NORMALS: patient oriented x3, moves all extremities and no focal motor deficits Psych: COMMON NORMALS: mental status grossly normal, Normal thought process present and cooperative THOUGHT PROCESS: Normal thought process present Skin: COMMON NORMALS: no rashes or lesions noted and no wounds GENERAL SKIN EXAM: no rashes or lesions noted Course Vital Signs: Vital signs: Vital Signs Temperature 97.9 F 09/11/21 18:34 Pulse Rate 85 09/11/21 21:28 Respiratory Rate 22 H 09/11/21 21:28 Blood Pressure 137/107 09/11/21 21:28 Pulse Oximetry 100 09/11/21 21:28 MDM - Abdominal Pain Medical Decision Making Patient presents here with abdominal pain diffuse in nature she feels improved here blood work and CT scan are all normal she is to continue her omeprazole we will get her follow-up with general surgery she is return if worsening she understands agrees to plan. Lab Data : 09/11/21 21:20 09/11/21 21:20 Labs/Radiology: Radiology Impressions Abdomen/Pelvis CT 09/11/21 21:06 IMPRESSION: 1. Negative for acute inflammatory process in the abdomen or pelvis. 2. Cholecystectomy. Laboratory Results WBC 10.8 10^3/uL (4.0-10.0) H 09/11/21 21:20 RBC 5.18 10^6/uL (4.1-5.3) 09/11/21 21:20 Hgb 14.4 g/dL (11.5-15.3) 09/11/21 21:20 Hct 43.5 % (37.0-47.0) 09/11/21 21:20 MCV 84.0 fl (81-99) 09/11/21 21:20 MCH 27.8 pg (28.0-34.0) L 09/11/21 21:20 MCHC 33.1 g/dL (30.0-36.0) 09/11/21 21:20 RDW 13.2 % (12.1-15.1) 09/11/21 21:20 Plt Count 345 10^3/cmm (130-400) 09/11/21 21:20 MPV 10.9 fL (7.4-10.4) H 09/11/21 21:20 Neut % (Auto) 64.5 % 09/11/21 21:20 Lymph % (Auto) 28.0 % 09/11/21 21:20 [place] % (Auto) 5.7 % 09/11/21 21:20 Eos % (Auto) 0.8 % 09/11/21 21:20 Baso % (Auto) 0.6 % 09/11/21 21:20 Neut # (Auto) 6.98 10^3/uL (1.8-7.7) 09/11/21 21:20 Lymph # (Auto) 3.0 10^3/uL (0.8-4.8) 09/11/21 21:20 [place] # (Auto) 0.6 10^3/uL (0.2-0.9) 09/11/21 21:20 Eos # (Auto) 0.1 10^3/uL (0.0-0.8) 09/11/21 21:20 Baso # (Auto) 0.1 10^3/uL (0.0-0.1) 09/11/21 21:20 Nucleated RBC % (auto) 0 % 09/11/21 21:20 Nucleated RBCs # 0.0 /100WBC 09/11/21 21:20 Sodium 140 mmol/L (136-145) 09/11/21 21:20 Potassium 3.5 mmol/L (3.5-5.1) 09/11/21 21:20 Chloride 101 mmol/L (98-107) 09/11/21 21:20 Carbon Dioxide 26 mmol/L (22-29) 09/11/21 21:20 Anion Gap 16.5 (5-19) 09/11/21 21:20 BUN 9 mg/dL (6-20) 09/11/21 21:20 Creatinine 0.7 mg/dL (0.5-0.9) 09/11/21 21:20 GFR Calculation 102.8 mL/min (90-130) 09/11/21 21:20 Glucose 86 mg/dL (65-115) 09/11/21 21:20 Calculated Osmolality 288 mOsm/kg (285-295) 09/11/21 21:20 Calcium 9.6 mg/dL (8.5-10.5) 09/11/21 21:20 Total Bilirubin 0.4 mg/dL (0.15-1.2) 09/11/21 21:20 AST 22 U/L (0-32) 09/11/21 21:20 ALT 30 U/L (0-33) 09/11/21 21:20 Alkaline Phosphatase 77 IU/L (35-105) 09/11/21 21:20 Total Protein 8.2 g/dL (6.6-8.7) 09/11/21 21:20 Albumin 4.7 g/dL (3.5-5.2) 09/11/21 21:20 Globulin 3.5 g/dL (1.3-4.6) 09/11/21 21:20 Lipase 27 U/L (13-60) 09/11/21 21:20 HCG, Qual Negative (Negative) 09/11/21 21:20 Urine Color Yellow (Yellow) 09/11/21 23:50 Urine Appearance Cloudy (CLEAR) 09/11/21 23:50 Urine pH 5 (5-7) 09/11/21 23:50 Ur Specific [place] 1.025 (1.005-1.030) 09/11/21 23:50 Urine Protein Neg (Negative) 09/11/21 23:50 Urine Glucose (UA) Norm (Normal) 09/11/21 23:50 Urine Ketones 2+ (Negative) H 09/11/21 23:50 Urine Blood Neg (Negative) 09/11/21 23:50 Urine Nitrate Negative (Negative) 09/11/21 23:50 Urine Bilirubin Neg (Negative) 09/11/21 23:50 Urine Urobilinogen Norm mg/dL (Negative) 09/11/21 23:50 Ur Leukocyte Esterase Trace (Negative) H 09/11/21 23:50 Urine RBC 0-4 /hpf (0-2) H 09/11/21 23:50 Urine WBC 5-10 /hpf (0-5) H 09/11/21 23:50 Ur Squamous Epith Cells 25-40 /hpf (0-5) H 09/11/21 23:50 Amorphous Sediment 2+ /hpf 09/11/21 23:50 Urine Bacteria 2+ /hpf (NONE) H 09/11/21 23:50 Urine Mucus Trace /hpf 09/11/21 23:50 Discharge Plan Discharge Patient Disposition: Home Clinical Impression: Abdominal pain Qualifiers: Abdominal location: generalized Qualified Code(s): R10.84 - Generalized abdominal pain Condition: Stable Prescriptions: New hydrocodone-acetaminophen 5-325 mg tablet 1 tab PO Q6H PRN (Reason: pain) Qty: 14 0RF ondansetron 4 mg tablet,disintegrating 4 mg PO Q6H PRN (Reason: nausea and vomiting) Qty: 14 0RF No Action metformin 1,000 mg Tablet 1,000 mg PO BID 0RF omeprazole 20 mg Capsule,Delayed Release(Dr/Ec) 20 mg PO DAILY 0RF Discharge Orders: Discharge ED (Routine); Ordered 09/12/21 Ordered By: Ally Fowler Referrals: Prem Guadalupe MD [Physician] - 1-3 days Burke Dior MD [Primary Care Provider] - Discharge Diet: Advance as tolerated Discharge Activity: Resume usual activity Patient Instructions: Abdominal Pain (ED), Opioid Safety Stand Alone Forms: Work/School Release Coding Level of Care Code ED Manager [place] for Jreryg Fwd Exam Comprehensive
[2021-09-11 21:23] LABS: Basophils # 0.1 10^3/uL (0.0-0.1); Basophils % 0.6 %; Eosinophils # 0.1 10^3/uL (0.0-0.8); Eosinophils % 0.8 %; Hematocrit 43.5 % (37.0-47.0); Hemoglobin 14.4 g/dL (11.5-15.3); Mean Corpuscular HGB Conc 33.1 g/dL (30.0-36.0); Mean Corpuscular Hemoglobin 27.8 pg (28.0-34.0); Mean Platelet Volume 10.9 fL (7.4-10.4); Monocytes # 0.6 10^3/uL (0.2-0.9); Monocytes % 5.7 %; Neutrophils # 6.98 10^3/uL (1.8-7.7); Neutrophils % 64.5 %; Nucleated Red Blood Cells % 0 %; Platelet Count 345 10^3/cmm (130-400); Red Blood Count 5.18 10^6/uL (4.1-5.3); Red Cell Distribution Width 13.2 % (12.1-15.1); White Blood Count 10.8 10^3/uL (4.0-10.0)
[2021-09-11 21:28] VITALS: BP 137/107; PULSE 85; RESP 22; O2SAT 100
[2021-09-11] MEDS: ondansetron 2 mg/ML SDV 2 mL 4 MG IVP (21:28)
[2021-09-11] MEDS: morphine 4 mg/mL SDV 1 mL IVP ×2 (21:28→22:29)
[2021-09-11] MEDS: sodium chloride 0.9% 1,000 ML 999 ML IV (21:29)
[2021-09-11 21:40] LABS: Alanine Aminotransferase 30 U/L (0-33); Albumin Level 4.7 g/dL (3.5-5.2); Alkaline Phosphatase 77 IU/L (35-105); Anion Gap 16.5 (5-19); Aspartate Amino Transferase 22 U/L (0-32); Blood Urea Nitrogen 9 mg/dL (6-20); Calcium 9.6 mg/dL (8.5-10.5); Carbon Dioxide 26 mmol/L (22-29); Chloride 101 mmol/L (98-107); Creatinine Clr Calc Pharmacy 144.8465; Globulin 3.5 g/dL (1.3-4.6); Glomerular Filtration Rate 102.8 mL/min (90-130); Glucose 86 mg/dL (65-115); Lipase 27 U/L (13-60); Osmolality Calculated 288 mOsm/kg (285-295); Potassium 3.5 mmol/L (3.5-5.1); Sodium 140 mmol/L (136-145); Total Bilirubin 0.4 mg/dL (0.15-1.2); Total Protein 8.2 g/dL (6.6-8.7)
[2021-09-11 22:54] LABS: HCG, Serum Qual Negative (Negative)
[2021-09-12 00:02] LABS: Add Urine Culture? No; Add Urine Microscopic? YES; Amorphous Sediment Urine 2+ /hpf; Bacteria Urine 2+ /hpf; Bilirubin Urine Neg (Negative); Blood Urine Neg (Negative); Glucose Urine UA Norm (Normal); Ketones Urine 2+ (Negative); Leukocyte Esterase Urine Trace (Negative); Mucus Urine TRACE /hpf; Nitrate Urine Negative (Negative); Protein Urine Neg (Negative); RBC Urine 0-4 /hpf (0-2); Specific Gravity, Urine 1.025 (1.005-1.030); Squamous Epithelial Cell Urine 25-40 /hpf (0-5); Urine Appearance Cloudy (CLEAR); Urine Color Yellow (Yellow); Urobilinogen Urine Norm (Negative); pH Urine 5 (5-7)
[2021-09-12] MEDS: HYDROmorphone 1 mg/mL INJ 1 mL IVP (00:30)
[2021-09-12 01:00] VITALS: BP 154/99; PULSE 93; RESP 16; O2SAT 90
--- NOTE | 2021-09-12 10:45 | DCPLANNER ---
Addendum entered by Eloisa Cramer 11/21/21 16:57: Patient had a follow up appointment scheduled with general surgery - patient did attend appointment. Addendum entered by Eloisa Cramer 09/14/21 16:02: Patient has a follow up appointment scheduled for Sunday, September 19, 2021 at 9:[address] Guadalupe at general surgery. Clinic will call patient with appointment information. Original Note: digital marketing project manager had message to schedule a follow up appointment for patient with general surgery. digital marketing project manager sent patients information to the front office staff at general surgery. Patients information will be printed and reviewed. Clinic will call patient with appointment information.
== END 2021-09-12 01:05 | disposition home or self-care (01) ==
PROVIDERS: Emergency Provider Emergency Medicine; PCP Family Medicine
DX: R10.84 Generalized abdominal pain (principal); Z90.49 Acquired absence of other specified parts of digestive tract
CPT/HCPCS: 74176; 80053; 81001; 81003; 83690; 84703; 85025; 96374; 96375; 96376; 99284; J1170; J2270; J2405; J7030

== ENCOUNTER 2021-10-17 14:33 | Emergency (ER) | payer OTHER, SELFPAY ==
--- NOTE | 2021-10-17 14:50 | XRR_ITS ---
PROCEDURE INFORMATION: Exam: XR Chest Exam date and time: 10/17/2021 4:41 PM Age: 26 years old Clinical indication: Dyspnea TECHNIQUE: Imaging protocol: Radiologic exam of the chest. Views: 2 views. COMPARISON: CR XR chest 1V portable [id number] 02/16/2021 5:07 PM FINDINGS: Lungs: Unremarkable. No consolidation. Pleural spaces: Unremarkable. No pleural effusion. No pneumothorax. Heart/Mediastinum: Unremarkable. No cardiomegaly. Bones/joints: Unremarkable. XR/XR chest 2V* [id number] IMPRESSION: No acute findings.
--- NOTE | 2021-10-17 14:50 | ECG_ITS ---
[facility] Test Date: 2021-10-17 Pat Name: Liz Webster Department: Room: Gender: Female Cloth Burler: : 1995 Requested By: Jone Fitzpatrick Order Number: [id number] Artur MD: Mars Michelle M.D. Measurements Intervals [place] Rate: 102 P: 45 DE: 152 QRS: -3 QRSD: 88 T: 44 QT: 307 QTc: 401 Interpretive Statements SINUS TACHYCARDIA LOW QRS VOLTAGE IN PRECORDIAL LEADS [QRS DEFLECTION < 1.0 mV IN CHEST LEADS] POSSIBLE RIGHT VENTRICULAR CONDUCTION DELAY [RSR (QR) IN V1/V2] POSSIBLE ANTERIOR MYOCARDIAL INFARCTION , PROBABLY OLD [30 ms Q WAVE IN V3/V4, OR R < 0.2 mV IN V4] Compared to ECG 02/16/2021 13:35:45 Low QRS voltage now present Myocardial infarct finding now present Sinus rhythm no longer present Incomplete right bundle-branch block no longer present Electronically Signed On 10-18-2021 16:32:49 CDT by Mars Michelle M.D. [id number]
[2021-10-17 14:58] VITALS: BP 153/99; PULSE 85; RESP 19; O2SAT 96; BMI 48.5
[2021-10-17 15:25] LABS: Basophils % 0.4 %; Eosinophils # 0.1 10^3/uL (0.0-0.8); Eosinophils % 1.3 %; Hematocrit 45.8 % (37.0-47.0); Hemoglobin 14.9 g/dL (11.5-15.3); Lymphocytes % 32.2 %; Mean Corpuscular HGB Conc 32.5 g/dL (30.0-36.0); Mean Corpuscular Hemoglobin 27.6 pg (28.0-34.0); Mean Platelet Volume 11.1 fL (7.4-10.4); Monocytes # 0.8 10^3/uL (0.2-0.9); Neutrophils % 56.8 %; Nucleated Red Blood Cells % 0 %; Platelet Count 324 10^3/cmm (130-400); Red Blood Count 5.39 10^6/uL (4.1-5.3); Red Cell Distribution Width 12.9 % (12.1-15.1); White Blood Count 9.2 10^3/uL (4.0-10.0)
[2021-10-17 15:58] LABS: Troponin T (5th) Once 6 ng/L (0-10)
[2021-10-17 16:16] LABS: Alanine Aminotransferase 34 U/L (0-33); Albumin Level 4.4 g/dL (3.5-5.2); Alkaline Phosphatase 84 IU/L (35-105); Anion Gap 19.4 (5-19); Aspartate Amino Transferase 27 U/L (0-32); Blood Urea Nitrogen 10 mg/dL (6-20); Calcium 9.8 mg/dL (8.5-10.5); Carbon Dioxide 19 mmol/L (22-29); Chloride 101 mmol/L (98-107); Glomerular Filtration Rate 102.8 mL/min (90-130); Glucose 98 mg/dL (65-115); Osmolality Calculated 281 mOsm/kg (285-295); Potassium 3.4 mmol/L (3.5-5.1); Sodium 136 mmol/L (136-145); Total Bilirubin 0.3 mg/dL (0.15-1.2); Total Protein 7.4 g/dL (6.6-8.7)
== END 2021-10-17 18:21 | disposition left against medical advice (07) ==
PROVIDERS: Emergency Provider Family Medicine; PCP Family Medicine
DX: Z53.21 Procedure and treatment not carried out due to patient leaving prior to being seen by health care provider (principal)
CPT/HCPCS: 71046; 80053; 84484; 85025; 93005

== ENCOUNTER 2021-10-19 10:16 | Emergency (ER) | payer OTHER, SELFPAY ==
--- NOTE | 2021-10-19 10:25 | W.ED.GENADLT ---
HPI - General Adult General: Chief complaint: Chest Pain Stated complaint: CHEST PAIN/ HTN Time Seen by Provider: 10/19/21 10:20 Source: patient Mode of arrival: EMS Limitations: no limitations History of Present Illness: 26-year-old female presents emergency room with complaint of chest pain. She returns by ambulance. She was seen 2 days ago initial triage was done I had picked up her chart and ordered some labs based on the triage description but after she was triaged she left without being seen some of the labs were completed but she was never seen by any of the ER physicians or providers. Reports are she left here and went to [place] she told EMS that. She states she has had chest pain intermittently since yesterday. States it radiates into her back. She has not had any fever sweats or chills no productive cough she is tachypneic at the time of arrival appears to be hyperventilating. She denies any major past medical problems or prescriptions however on her medicine list it says she is on omeprazole and metformin as well as hydrocodone and ondansetron. She denies smoking. She has no history of chronic respiratory illness or diabetes. She has previously had a cholecystectomy. Onset (ago): day(s) (1) Location: chest Radiation: back Severity: moderate Quality: sharp Pain Consistency: constant Relieving factors: none Exacerbating factors: none Associated symptoms: Reports chest pain, dyspnea, malaise, nausea, short of breath and weakness; Deny confusion, cough, diaphoresis, decreased appetite, fevers/chills, headache(s), rash, palpitations, seizures, syncope or vomiting Treatments prior to arrival: none Review of Systems Const: Reports: fatigue and malaise; Denies: fever(s), chills or diaphoresis ENMT: Denies: throat pain, ear or mastoid pain, nasal discharge or nasal congestion Card: Reports: chest pain; Denies: palpitations or syncope Resp: Reports: dyspnea; Denies: productive cough, non-productive cough or wheezing GI: Reports: nausea; Denies: abdominal pain or vomiting : Denies: flank pain, difficulty voiding, dysuria, urinary frequency or urinary urgency Skin/Breast: Denies: rash Neuro: Denies: headache(s) or confusion PFS ED PFSH: Medical History (Updated 10/19/21 @ 11:26 by Janak Bauer DO) Gastroesophageal reflux disease Surgical History History of cholecystectomy Social History Smoking and tobacco status: never smoked Female Reproductive History: Date of last menstrual period: 05/30/21 Physical Exam Const: GENERAL APPEARANCE: cooperative and comfortable ORIENTATION/CONSCIOUSNESS: Yes awake, Yes oriented to person, Yes oriented to place and Yes oriented to time HENMT: COMMON NORMALS: normocephalic, atraumatic and hearing grossly normal bilaterally HEAD & SCALP: normocephalic and atraumatic Neck/C-Spine: COMMON NORMALS: no JVD Lymph: LYMPHATIC: no lymphadenopathy noted and no lymphedema noted Resp: COMMON NORMALS: No retractions, No use of accessory muscles and clear to auscultation bilaterally EFFORT & INSPECTION: Yes able to speak in complete sentences and Yes tachypneic AUSCULTATION: clear to auscultation bilaterally Cardio: COMMON NORMALS: no JVD, regular rate, regular rhythm and No murmurs present (Cardio) RATE: regular rate RHYTHM: regular rhythm GI: COMMON NORMALS: Soft to palpation and No hepatosplenomegaly present AUSCULTATION: Yes normoactive bowel sounds PALPATION: Yes Soft to palpation, No Tenderness to palpation present (GI), No Guarding due to palpation present (GI) and Yes No hepatosplenomegaly present Extremity: COMMON NORMALS: normal to inspection, capillary refill normal, no clubbing, cyanosis or edema, no calf tenderness and no pedal edema Neuro: SENSORIUM/ORIENTATION: Yes oriented to person, Yes oriented to place and Yes oriented to time Skin: COMMON NORMALS: no rashes or lesions noted GENERAL SKIN EXAM: no rashes or lesions noted Course Vital Signs: Vital signs: Vital Signs Temperature 97.9 F 10/19/21 10:37 Pulse Rate 107 H 10/19/21 10:37 Respiratory Rate 15 10/19/21 10:37 Blood Pressure 172/107 10/19/21 10:37 Pulse Oximetry 98 10/19/21 10:37 [facility] - General Adult Medical Decision Making Patient is hyperventilating on arrival here reviewed findings she has had this chest discomfort multiple times she has had it for several days now. Her troponin is normal EKG is unremarkable. She previously has had work-up including CT of the chest for an it was normal at that time 2. We will discharge her home with hydroxyzine to use as needed follow-up with her primary care doctor. Medical Records I reviewed the patient's medical records. Lab Data I reviewed the patient's lab results. : 10/19/21 10:07 10/19/21 10:07 Laboratory Results WBC 10.9 10^3/uL (4.0-10.0) H 10/19/21 10:07 RBC 5.19 10^6/uL (4.1-5.3) 10/19/21 10:07 Hgb 14.5 g/dL (11.5-15.3) 10/19/21 10:07 Hct 42.7 % (37.0-47.0) 10/19/21 10:07 MCV 82.3 fl (81-99) 10/19/21 10:07 MCH 27.9 pg (28.0-34.0) L 10/19/21 10:07 MCHC 34.0 g/dL (30.0-36.0) 10/19/21 10:07 RDW 13.0 % (12.1-15.1) 10/19/21 10:07 Plt Count 323 10^3/cmm (130-400) 10/19/21 10:07 MPV 11.9 fL (7.4-10.4) H 10/19/21 10:07 Neut % (Auto) 62.3 % 10/19/21 10:07 Lymph % (Auto) 28.3 % 10/19/21 10:07 [place] % (Auto) 7.5 % 10/19/21 10:07 Eos % (Auto) 1.0 % 10/19/21 10:07 Baso % (Auto) 0.6 % 10/19/21 10:07 Neut # (Auto) 6.81 10^3/uL (1.8-7.7) 10/19/21 10:07 Lymph # (Auto) 3.1 10^3/uL (0.8-4.8) 10/19/21 10:07 [place] # (Auto) 0.8 10^3/uL (0.2-0.9) 10/19/21 10:07 Eos # (Auto) 0.1 10^3/uL (0.0-0.8) 10/19/21 10:07 Baso # (Auto) 0.1 10^3/uL (0.0-0.1) 10/19/21 10:07 Nucleated RBC % (auto) 0 % 10/19/21 10:07 Nucleated RBCs # 0.0 /100WBC 10/19/21 10:07 Specimen Type Arterial 10/19/21 10:32 Sample Site Radial, left 10/19/21 10:32 ABG pH 7.56 (7.35-7.45) H 10/19/21 10:32 ABG pCO2 22.9 mmHg (35-45) L 10/19/21 10:32 ABG pO2 110.0 mmHg (80.0-100.0) H 10/19/21 10:32 ABG HCO3 20.4 mmol/L (22-26) L 10/19/21 10:32 ABG O2 Saturation 99.3 10/19/21 10:32 ABG Base Excess -0.1 mmol/L (-2.0-2.0) 10/19/21 10:32 Moncho Test Pos 10/19/21 10:32 A-a O2 Gradient 1.1 mmHg (5-10) L 10/19/21 10:32 Hematocrit 42.0 % (37-47) 10/19/21 10:32 Hgb O2 Saturation 97.9 % (95-100) 10/19/21 10:32 Carboxyhemoglobin 0.5 %THgb (0.4-20.1) 10/19/21 10:32 Methemoglobin 0.9 % (0.4-1.5) 10/19/21 10:32 Total Hemoglobin 13.7 g/dL (12-16) 10/19/21 10:32 Sodium 142.0 mmol/L (131-143) 10/19/21 10:32 Potassium 3.3 mmol/L (3.5-5.0) L 10/19/21 10:32 Glucose 112.0 mg/dL (70-115) 10/19/21 10:32 Ionized Calcium 1.2 mmol/L (1.1-1.4) 10/19/21 10:32 O2 Delivery Device Room air 10/19/21 10:32 FiO2 21.0 % 10/19/21 10:32 On Site Soil Evaluator ID Cak 10/19/21 10:32 Sodium 141 mmol/L (136-145) 10/19/21 10:07 Potassium 3.8 mmol/L (3.5-5.1) 10/19/21 10:07 Chloride 102 mmol/L (98-107) 10/19/21 10:07 Carbon Dioxide 21 mmol/L (22-29) L 10/19/21 10:07 Anion Gap 21.8 (5-19) H 10/19/21 10:07 BUN 11 mg/dL (6-20) 10/19/21 10:07 Creatinine 0.8 mg/dL (0.5-0.9) 10/19/21 10:07 GFR Calculation 88.1 mL/min (90-130) L 10/19/21 10:07 Glucose 97 mg/dL (65-115) 10/19/21 10:07 Calculated Osmolality 291 mOsm/kg (285-295) 10/19/21 10:07 Calcium 10.2 mg/dL (8.5-10.5) 10/19/21 10:07 Total Bilirubin 0.2 mg/dL (0.15-1.2) 10/19/21 10:07 AST 19 U/L (0-32) 10/19/21 10:07 ALT 31 U/L (0-33) 10/19/21 10:07 Alkaline Phosphatase 84 IU/L (35-105) 10/19/21 10:07 Troponin T Gen 5 ng/L 6 ng/L (0-10) 10/19/21 10:07 Total Protein 7.3 g/dL (6.6-8.7) 10/19/21 10:07 Albumin 4.8 g/dL (3.5-5.2) 10/19/21 10:07 Globulin 2.5 g/dL (1.3-4.6) 10/19/21 10:07 Discharge Plan Discharge Patient Disposition: Home Clinical Impression: Acute hyperventilation, Atypical chest pain Condition: Stable Prescriptions: New hydroxyzine HCl 25 mg tablet 25 mg PO Q6H PRN (Reason: anxiety) Qty: 20 0RF No Action metformin 1,000 mg Tablet 1,000 mg PO BID 0RF Discharge Orders: Discharge ED (Routine); Ordered 10/19/21 Ordered By: Janak Bauer Referrals: Burke Dior MD [Primary Care Provider] - Discharge Diet: Usual diet Discharge Activity: Increase activity as tolerated Patient Instructions: Opioid Safety Activity Restrictions/Additional Instructions: Follow-up with your primary care doctor within the next week. 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
[2021-10-19 10:37] VITALS: BP 172/107; PULSE 107; RESP 15; TEMP 36.6; O2SAT 98; BMI 45.3
[2021-10-19 10:43] LABS: ABG PCO2 22.9 mmHg (35-45); ABG PH Result 7.56 (7.35-7.45); Alveolar-Arterial Oxygen Gradi 1.1 mmHg (5-10); Base Excess ABG -0.1 mmol/L (-2.0-2.0); Blood Gas Allen Test Pos; Blood Gas Operator Identificat CAK; Blood Gas Sample Site Radial, left; Blood Gas Sample Type Arterial; Carboxyhemoglobin 0.5 %THgb (0.4-20.1); HCO3 ABG 20.4 mmol/L (22-26); HGB O2 Sat 97.9 % (95-100); Ionized Calcium Level - ABG 1.2 mmol/L (1.1-1.4); Methemoglobin 0.9 % (0.4-1.5); Oxygen Device ROOM AIR; Oxygen Saturation ABG 99.3; Potassium Level - ABG 3.3 mmol/L (3.5-5.0); Total Hemoglobin 13.7 g/dL (12-16)
--- NOTE | 2021-10-19 10:45 | ECG_ITS ---
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 Measurements Intervals [place] Rate: 64 P: 41 VT: 142 QRS: 19 QRSD: 101 T: 45 QT: 359 QTc: 371 Interpretive Statements SINUS RHYTHM WITH SINUS ARRHYTHMIA INCOMPLETE RIGHT BUNDLE BRANCH BLOCK [90+ ms QRS DURATION, TERMINAL R IN V1/V2, 40+ ms S IN I/aVL/V4/V5/V6] Compared to ECG 10/17/2021 14:56:55 Incomplete right bundle-branch block now present Sinus tachycardia no longer present Myocardial infarct finding no longer present Electronically Signed On 10-19-2021 21:15:23 CDT by Patricio Sandy M.D. [id number]
--- NOTE | 2021-10-19 10:50 | PC.NURSE ---
PT PLACED ON CONTINUOUS NIBP, SPO2, AND CM
[2021-10-19 10:59] LABS: Basophils # 0.1 10^3/uL (0.0-0.1); Basophils % 0.6 %; Eosinophils # 0.1 10^3/uL (0.0-0.8); Hematocrit 42.7 % (37.0-47.0); Hemoglobin 14.5 g/dL (11.5-15.3); Lymphocytes # 3.1 10^3/uL (0.8-4.8); Lymphocytes % 28.3 %; Mean Corpuscular Hemoglobin 27.9 pg (28.0-34.0); Mean Corpuscular Volume 82.3 fl (81-99); Mean Platelet Volume 11.9 fL (7.4-10.4); Monocytes # 0.8 10^3/uL (0.2-0.9); Monocytes % 7.5 %; Neutrophils # 6.81 10^3/uL (1.8-7.7); Neutrophils % 62.3 %; Nucleated Red Blood Cells % 0 %; Platelet Count 323 10^3/cmm (130-400); Red Blood Count 5.19 10^6/uL (4.1-5.3); White Blood Count 10.9 10^3/uL (4.0-10.0)
[2021-10-19 11:16] LABS: Troponin T (5th) Once 6 ng/L (0-10)
[2021-10-19 11:18] LABS: Alanine Aminotransferase 31 U/L (0-33); Albumin Level 4.8 g/dL (3.5-5.2); Alkaline Phosphatase 84 IU/L (35-105); Anion Gap 21.8 (5-19); Aspartate Amino Transferase 19 U/L (0-32); Blood Urea Nitrogen 11 mg/dL (6-20); Calcium 10.2 mg/dL (8.5-10.5); Carbon Dioxide 21 mmol/L (22-29); Chloride 102 mmol/L (98-107); Globulin 2.5 g/dL (1.3-4.6); Glomerular Filtration Rate 88.1 mL/min (90-130); Glucose 97 mg/dL (65-115); Osmolality Calculated 291 mOsm/kg (285-295); Potassium 3.8 mmol/L (3.5-5.1); Sodium 141 mmol/L (136-145); Total Bilirubin 0.2 mg/dL (0.15-1.2); Total Protein 7.3 g/dL (6.6-8.7)
[2021-10-19 11:51] VITALS: PULSE 64; O2SAT 98
== END 2021-10-19 11:53 | disposition home or self-care (01) ==
PROVIDERS: Emergency Provider Family Medicine; PCP Family Medicine
DX: R07.89 Other chest pain (principal); R06.4 Hyperventilation
CPT/HCPCS: 36600; 80051; 80053; 82330; 82805; 84484; 85025; 93005; 99284

== ENCOUNTER → 2022-01-11 13:35 | Outpatient (BNVA) | payer OTHER, SELFPAY | PROVIDERS: PCP Family Medicine; Visit Provider Obstetrics & Gynecology | DX: Z36.87 Encounter for antenatal screening for uncertain dates (principal) | CPT/HCPCS: 76817; 84702 ==

== ENCOUNTER 2022-01-27 19:46 | Emergency (ER) | payer OTHER, SELFPAY ==
[2022-01-27 20:22] VITALS: BP 153/112; PULSE 102; RESP 15; TEMP 36.8; O2SAT 99; BMI 47.2
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
[2022-01-27 22:04] LABS: Basophils # 0.1 10^3/uL (0.0-0.1); Basophils % 0.6 %; Eosinophils # 0.1 10^3/uL (0.0-0.8); Eosinophils % 0.6 %; Hematocrit 43.7 % (37.0-47.0); Hemoglobin 13.9 g/dL (11.5-15.3); Lymphocytes # 2.3 10^3/uL (0.8-4.8); Lymphocytes % 24.8 %; Mean Corpuscular HGB Conc 31.8 g/dL (30.0-36.0); Mean Corpuscular Hemoglobin 27.3 pg (28.0-34.0); Mean Corpuscular Volume 85.9 fl (81-99); Mean Platelet Volume 11.5 fL (7.4-10.4); Monocytes # 0.7 10^3/uL (0.2-0.9); Monocytes % 7.3 %; Neutrophils # 6.19 10^3/uL (1.8-7.7); Neutrophils % 66.3 %; Nucleated Red Blood Cells % 0 %; Platelet Count 333 10^3/cmm (130-400); Red Blood Count 5.09 10^6/uL (4.1-5.3); Red Cell Distribution Width 12.9 % (12.1-15.1); White Blood Count 9.4 10^3/uL (4.0-10.0)
[2022-01-27 22:28] LABS: Alanine Aminotransferase 20 U/L (0-33); Albumin Level 4.2 g/dL (3.5-5.2); Alkaline Phosphatase 87 U/L (35-105); Anion Gap 13.8 (5-19); Aspartate Amino Transferase 15 U/L (0-32); Blood Urea Nitrogen 11 mg/dL (6-20); Calcium 9.8 mg/dL (8.5-10.5); Carbon Dioxide 26 mmol/L (22-29); Chloride 94 mmol/L (98-107); Creatinine Clr Calc Pharmacy 144.8465; Globulin 4.2 g/dL (1.3-4.6); Glomerular Filtration Rate 102.8 mL/min (90-130); Glucose 94 mg/dL (65-115); Osmolality Calculated 269 mOsm/kg (285-295); Potassium 3.8 mmol/L (3.5-5.1); Sodium 130 mmol/L (136-145); Total Bilirubin 0.2 mg/dL (0.15-1.2); Total Protein 8.4 g/dL (6.6-8.7)
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
[2022-01-27 23:16] VITALS: RESP 20
[2022-01-27] MEDS: ondansetron 2 mg/ML SDV 2 mL 4 MG IVP (23:16)
[2022-01-27] MEDS: morphine 4 mg/mL SDV 1 mL IVP (23:16)
[2022-01-27 23:31] VITALS: BP 165/80; PULSE 90; RESP 17; O2SAT 91
[2022-01-28] VITALS: BP 128/80; PULSE 88; RESP 14; O2SAT 97
[2022-01-28 00:20] VITALS: RESP 14
[2022-01-28] MEDS: morphine 4 mg/mL SDV 1 mL IVP (00:20)
[2022-01-28 01:08] VITALS: BP 119/100; RESP 14; O2SAT 98
== END 2022-01-28 01:11 | disposition home or self-care (01) ==
PROVIDERS: Emergency Medicine; Emergency Provider Emergency Medicine; PCP Family Medicine
DX: O9A.211 Injury, poisoning and certain other consequences of external causes complicating pregnancy, first trimester (principal); S30.1XXA Contusion of abdominal wall, initial encounter; Z3A.11 11 weeks gestation of pregnancy; S39.012A Strain of muscle, fascia and tendon of lower back, initial encounter; V49.9XXA Car occupant (driver) (passenger) injured in unspecified traffic accident, initial encounter
CPT/HCPCS: 36415; 71045; 76700; 76815; 76817; 80053; 84702; 85025; 86850; 86900; 96374; 96375; 96376; 99285; J2270; J2405

== ENCOUNTER 2022-04-26 12:14 | Outpatient (CLI) | payer OTHER, SELFPAY ==
--- NOTE | 2022-04-26 12:36 | XR_ITS ---
WS: [id number] Exam: XR wrist RT min 3V* [id number] Date/Time of Exam: 04/26/2022 12:46 PM Reason For Exam: R WRIST PAIN There are no fractures, soft tissue swelling, or unusual calcifications. The wrist shows normal bony alignment. There is no irregularity of the bony architecture. XR/XR wrist RT min 3V* [id number] IMPRESSION: Negative right wrist.
== END 2022-04-26 12:15 | disposition home or self-care (01) ==
PROVIDERS: PCP Family Medicine; Visit Provider Nurse Practitioner Family
DX: M25.531 Pain in right wrist (principal)
CPT/HCPCS: 73110

== ENCOUNTER → 2022-05-04 16:25 | Outpatient (BNVA) | payer OTHER, SELFPAY | PROVIDERS: PCP Family Medicine; Visit Provider Registered Nurse Neonatal Intensive Care | DX: R11.10 Vomiting, unspecified (principal); J06.9 Acute upper respiratory infection, unspecified | CPT/HCPCS: 87400 ==

== ENCOUNTER 2022-05-08 19:41 | Emergency (ER) | payer OTHER, SELFPAY ==
[2022-05-08 19:58] VITALS: BP 154/106; PULSE 73; RESP 16; TEMP 36.2; O2SAT 97; BMI 47.2
[2022-05-08 20:15] LABS: Basophils # 0.1 10^3/uL (0.0-0.1); Basophils % 0.5 %; Eosinophils # 0.2 10^3/uL (0.0-0.8); Eosinophils % 1.4 %; Hematocrit 42.8 % (37.0-47.0); Hemoglobin 13.5 g/dL (11.5-15.3); Lymphocytes # 3.1 10^3/uL (0.8-4.8); Lymphocytes % 29.5 %; Mean Corpuscular HGB Conc 31.5 g/dL (30.0-36.0); Mean Corpuscular Hemoglobin 27.1 pg (28.0-34.0); Mean Corpuscular Volume 85.8 fl (81-99); Mean Platelet Volume 11.3 fL (7.4-10.4); Monocytes # 0.6 10^3/uL (0.2-0.9); Monocytes % 5.3 %; Neutrophils # 6.66 10^3/uL (1.8-7.7); Nucleated Red Blood Cells % 0 %; Platelet Count 320 10^3/cmm (130-400); Red Blood Count 4.99 10^6/uL (4.1-5.3); Red Cell Distribution Width 13.2 % (12.1-15.1); White Blood Count 10.6 10^3/uL (4.0-10.0)
[2022-05-08 20:34] LABS: Alanine Aminotransferase 19 U/L (0-33); Albumin Level 4.6 g/dL (3.5-5.2); Alkaline Phosphatase 88 U/L (35-105); Anion Gap 12.9 (5-19); Aspartate Amino Transferase 17 U/L (0-32); Blood Urea Nitrogen 11 mg/dL (6-20); Calcium 9.6 mg/dL (8.5-10.5); Carbon Dioxide 29 mmol/L (22-29); Chloride 101 mmol/L (98-107); Globulin 3.3 g/dL (1.3-4.6); Glomerular Filtration Rate 122.8 mL/min (90-130); Glucose 94 mg/dL (65-115); HCG, Serum Qual Negative (Negative); Lipase 26 U/L (13-60); Osmolality Calculated 287 mOsm/kg (285-295); Potassium 3.9 mmol/L (3.5-5.1); Sodium 139 mmol/L (136-145); Total Bilirubin 0.2 mg/dL (0.15-1.2); Total Protein 7.9 g/dL (6.6-8.7)
--- NOTE | 2022-05-08 21:41 | ED_ITS ---
Documented by User: Steven Bob MD 05/21/22 01:53 HPI - Abdominal Pain General: Chief Complaint: Abdominal Pain Stated Complaint: Abd Pain and Back Time Seen by Provider: 05/08/22 21:41 History of Present Illness: Ms. Webster is a 26-year-old lady with history of cholecystectomy and GERD presenting to the emergency department due to abdominal pain. She reports a few day history of gastroenteritis type symptoms with nonbilious and nonbloody emesis as well as diarrhea. This has largely improved however she has subsequently developed a migratory abdominal pain. Mostly periumbilical in nature, worse with ambulation and movement. Denies associated fevers. No new urinary symptoms. She just started her period. No other specific changes in health, exacerbating, or alleviating factors identified. Onset (ago): day(s) Pain Consistency: constant Severity: moderate Quality: aching and sharp Radiation: none Migration to: other Exacerbating factors: eating, movement and other Relieving factors: nothing Associated Symptoms: Reports diarrhea, nausea and vomiting Related Data: Date of Last Menstrual Period: 12/04/21 Review of Systems General: Reports: 10 or more systems reviewed and unremarkable except in HPI and below GI: Reports: nausea, vomiting and diarrhea PFSH ED PFSH: Medical History Gastroesophageal reflux disease Surgical History History of cholecystectomy Social History Smoking and tobacco status: never smoked Female Reproductive History: Date of last menstrual period: 12/04/21 Para: 0 Physical Exam Const: COMMON NORMALS: alert GENERAL APPEARANCE: cooperative and well developed HENMT: COMMON NORMALS: normocephalic and atraumatic HEAD & SCALP: normocephalic and atraumatic Eye: COMMON NORMALS: conjunctivae normal CONJUNCTIVA: Yes conjunctivae normal SCLERA: sclerae normal Neck/C-Spine: COMMON NORMALS: supple GENERAL: Yes trachea midline Resp: COMMON NORMALS: clear to auscultation bilaterally EFFORT & INSPECTION: Yes able to speak in complete sentences AUSCULTATION: clear to auscultation bilaterally Cardio: COMMON NORMALS: regular rate and regular rhythm RATE: regular rate RHYTHM: regular rhythm GI: COMMON NORMALS: Soft to palpation PALPATION: Yes Soft to palpation, Yes Tenderness to palpation present (GI), No Guarding due to palpation present (GI) and No Rigid due to palpation PERCUSSION: normal to percussion Extremity: GENERAL: Yes normal exam except as noted and No edema Neuro: COMMON NORMALS: moves all extremities SENSORIUM/ORIENTATION: Yes alert and No Orientation impaired Psych: COMMON NORMALS: mental status grossly normal and Normal thought process present THOUGHT PROCESS: Normal thought process present Course Vital Signs: Vital signs: Vital Signs Temperature 97.2 F L 05/08/22 19:58 Pulse Rate 60 05/08/22 23:38 Respiratory Rate 14 05/08/22 23:38 Blood Pressure 107/76 05/08/22 23:38 Pulse Oximetry 95 05/08/22 23:38 Oxygen Delivery Me thod 05/08/22 22:57 MDM - Abdominal Pain Medical Decision Making 26-year-old lady presenting with abdominal symptoms. Abdominal tenderness on exam without evidence of peritonitis. Handoff to Dr. Fowler continuation of ED evaluation. Patient presents with abdominal pain blood work CT are normal she is stable for discharge to follow-up with PCP and return if worsening. Medical Records I reviewed the patient's medical records. Lab Data I reviewed the patient's lab results. 05/08/22 20:07 05/08/22 20:07 Labs/Radiology: Radiology Impressions Abdomen/Pelvis CT 05/08/22 22:35 IMPRESSION: 1. Negative for acute inflammatory process in the abdomen or pelvis. 2. Cholecystectomy. 3. Constipation. Laboratory Results WBC 10.6 10^3/uL (4.0-10.0) H 05/08/22 20:07 RBC 4.99 10^6/uL (4.1-5.3) 05/08/22 20:07 Hgb 13.5 g/dL (11.5-15.3) 05/08/22 20:07 Hct 42.8 % (37.0-47.0) 05/08/22 20:07 MCV 85.8 fl (81-99) 05/08/22 20:07 MCH 27.1 pg (28.0-34.0) L 05/08/22 20: MCHC 31.5 g/dL (30.0-36.0) 05/08/22 20:07 RDW 13.2 % (12.1-15.1) 05/08/22 20:07 Plt Count 320 10^3/cmm (130-400) 05/08/22 20:07 MPV 11.3 fL (7.4-10.4) H 05/08/22 20:07 Neut % (Auto) 63.0 % 05/08/22 20:07 Lymph % (Auto) 29.5 % 05/08/22 20:07 [place] % (Auto) 5.3 % 05/08/22 20:07 Eos % (Auto) 1.4 % 05/08/22 20:07 Baso % (Auto) 0.5 % 05/08/22 20:07 Neut # (Auto) 6.66 10^3/uL (1.8-7.7) 05/08/22 20:07 Lymph # (Auto) 3.1 10^3/uL (0.8-4.8) 05/08/22 20:07 [place] # (Auto) 0.6 10^3/uL (0.2-0.9) 05/08/22 20:07 Eos # (Auto) 0.2 10^3/uL (0.0-0.8) 05/08/22 20:07 Baso # (Auto) 0.1 10^3/uL (0.0-0.1) 05/08/22 20:07 Nucleated RBC % (auto) 0 % 05/08/22 20:07 Nucleated RBCs # 0.0 /100WBC 05/08/22 20:07 Sodium 139 mmol/L (136-145) 05/08/22 20:07 Potassium 3.9 mmol/L (3.5-5.1) 05/08/22 20:07 Chloride 101 mmol/L (98-107) 05/08/22 20:07 Carbon Dioxide 29 mmol/L (22-29) 05/08/22 20:07 Anion Gap 12.9 (5-19) 05/08/22 20:07 BUN 11 mg/dL (6-20) 05/08/22 20:07 Creatinine 0.6 mg/dL (0.5-0.9) 05/08/22 20:07 GFR Calculation 122.8 mL/min (90-130) 05/08/22 20:07 Glucose 94 mg/dL (65-115) 05/08/22 20:07 Calculated Osmolality 287 mOsm/kg (285-295) 05/08/22 20:07 Calcium 9.6 mg/dL (8.5-10.5) 05/08/22 20:07 Total Bilirubin 0.2 mg/dL (0.15-1.2) 05/08/22 20:07 AST 17 U/L (0-32) 05/08/22 20:07 ALT 19 U/L (0-33) 05/08/22 20:07 Alkaline Phosphatase 88 U/L (35-105) 05/08/22 20:07 Total Protein 7.9 g/dL (6.6-8.7) 05/08/22 20:07 Albumin 4.6 g/dL (3.5-5.2) 05/08/22 20:07 Globulin 3.3 g/dL (1.3-4.6) 05/08/22 20:07 Lipase 26 U/L (13-60) 05/08/22 20:07 HCG, Qual Negative (Negative) 05/08/22 20:07 Urine Color Altagracia (Yellow) 05/08/22 21:45 Urine Appearance Sl hazy (CLEAR) A 05/08/22 21:45 Urine pH 6 (5-7) 05/08/22 21:45 Ur Specific [place] 1.020 (1.005-1.030) 05/08/22 21:45 Urine Protein 1+ (Negative) H 05/08/22 21:45 Urine Glucose (UA) Norm (Normal) 05/08/22 21:45 Urine Ketones Negative (Negative) 05/08/22 21:45 Urine Blood 3+ (Negative) H 05/08/22 21:45 Urine Nitrate Negative (Negative) 05/08/22 21:45 Urine Bilirubin 1+ (Negative) H 05/08/22 21:45 Urine Urobilinogen 8 mg/dL (Negative) H 05/08/22 21:45 Ur Leukocyte Esterase Negative (Negative) 05/08/22 21:45 Urine RBC Too numerous to cnt /hpf (0-2) H 05/08/22 21:45 Urine WBC None /hpf (0-5) 05/08/22 21:45 Ur Squamous Epith Cells 5-10 /hpf (0-5) H 05/08/22 21:45 Amorphous Sediment 1+ /hpf 05/08/22 21:45 Urine Bacteria 1+ /hpf (NONE) H 05/08/22 21:45 Discharge Plan Discharge Patient Disposition: Home Clinical Impression: Abdominal pain, Nausea, vomiting, and diarrhea, Hematuria Condition: Stable Prescriptions: New ondansetron 4 mg tablet,disintegrating 4 mg PO Q6H PRN (Reason: nausea and vomiting) Qty: 14 0RF No Action metformin 1,000 mg Tablet 1,000 mg PO BID hydroxyzine HCl 25 mg tablet 25 mg PO Q6H PRN (Reason: anxiety) Qty: 20 0RF hydrocodone-acetaminophen 5-325 mg tablet 1 tab PO Q8H PRN (Reason: pain) Qty: 7 0RF ondansetron 4 mg film 4 mg PO DAILY PRN (Reason: nausea and vomiting) Qty: 10 0RF Discharge Orders: Discharge ED (Routine); Ordered 05/08/22 Ordered By: Ally Fowler Referrals: Burke Dior MD [Primary Care Provider] - Discharge Diet: Advance as tolerated and Clear Liquid Discharge Activity: Increase activity as tolerated Patient Instructions: Gastroenteritis (ED), Abdominal Pain (ED), Pain Management Activity Restrictions/Additional Instructions: Thank you for visiting the emergency department. You were seen and evaluated for abdominal pain. The exact cause of your symptoms is unclear the does not appear to need hospitalization at this time. Please follow-up with your primary care provider. Please start with a clear liquid diet and then advance as tolerated with bland foods to start. Return to the emergency department for anything that you are concerned about and feel needs emergency department evaluation. Stand Alone Forms: Work/School Release Coding Level of Care Code ED Lithographic Stripper for Chg Fwd Documented by User: Ally Fowler MD 05/08/22 23:37 HPI - Abdominal Pain General: Chief Complaint: Abdominal Pain Stated Complaint: Abd Pain and Back Time Seen by Provider: 05/08/22 21:41 PFSH ED PFSH: Medical History Gastroesophageal reflux disease Surgical History History of cholecystectomy Social History Smoking and tobacco status: never smoked Course Vital Signs: Vital signs: Vital Signs Temperature 97.2 F L 05/08/22 19:58 Pulse Rate 60 05/08/22 23:38 Respiratory Rate 14 05/08/22 23:38 Blood Pressure 107/76 05/08/22 23:38 Pulse Oximetry 95 05/08/22 23:38 Oxygen Delivery Me thod 05/08/22 22:57 MDM - Abdominal Pain Medical Decision Making Patient presents with abdominal pain blood work CT are normal she is stable for discharge to follow-up with PCP and return if worsening. Lab Data 05/08/22 20:07 05/08/22 20:07 Labs/Radiology: Radiology Impressions Abdomen/Pelvis CT 05/08/22 22:35 IMPRESSION: 1. Negative for acute inflammatory process in the abdomen or pelvis. 2. Cholecystectomy. 3. Constipation. Laboratory Results WBC 10.6 10^3/uL (4.0-10.0) H 05/08/22 20:07 RBC 4.99 10^6/uL (4.1-5.3) 05/08/22 20:07 Hgb 13.5 g/dL (11.5-15.3) 05/08/22 20:07 Hct 42.8 % (37.0-47.0) 05/08/22 20:07 MCV 85.8 fl (81-99) 05/08/22 20:07 MCH 27.1 pg (28.0-34.0) L 05/08/22 20:07 MCHC 31.5 g/dL (30.0-36.0) 05/08/22 20:07 RDW 13.2 % (12.1-15.1) 05/08/22 20:07 Plt Count 320 10^3/cmm (130-400) 05/08/22 20:07 MPV 11.3 fL (7.4-10.4) H 05/08/22 20:07 Neut % (Auto) 63.0 % 05/08/22 20:07 Lymph % (Auto) 29.5 % 05/08/22 20:07 [place] % (Auto) 5.3 % 05/08/22 20:07 Eos % (Auto) 1.4 % 05/08/22 20:07 Baso % (Auto) 0.5 % 05/08/22 20:07 Neut # (Auto) 6.66 10^3/uL (1.8-7.7) 05/08/22 20:07 Lymph # (Auto) 3.1 10^3/uL (0.8-4.8) 05/08/22 20:07 [place] # (Auto) 0.6 10^3/uL (0.2-0.9) 05/08/22 20:07 Eos # (Auto) 0.2 10^3/uL (0.0-0.8) 05/08/22 20:07 Baso # (Auto) 0.1 10^3/uL (0.0-0.1) 05/08/22 20:07 Nucleated RBC % (auto) 0 % 05/08/22 20:07 Nucleated RBCs # 0.0 /100WBC 05/08/22 20:07 Sodium 139 mmol/L (136-145) 05/08/22 20:07 Potassium 3.9 mmol/L (3.5-5.1) 05/08/22 20:07 Chloride 101 mmol/L (98-107) 05/08/22 20:07 Carbon Dioxide 29 mmol/L (22-29) 05/08/22 20:07 Anion Gap 12.9 (5-19) 05/08/22 20:07 BUN 11 mg/dL (6-20) 05/08/22 20:07 Creatinine 0.6 mg/dL (0.5-0.9) 05/08/22 20:07 GFR Calculation 122.8 mL/min (90-130) 05/08/22 20:07 Glucose 94 mg/dL (65-115) 05/08/22 20:07 Calculated Osmolality 287 mOsm/kg (285-295) 05/08/22 20:07 Calcium 9.6 mg/dL (8.5-10.5) 05/08/22 20:07 Total Bilirubin 0.2 mg/dL (0.15-1.2) 05/08/22 20:07 AST 17 U/L (0-32) 05/08/22 20:07 ALT 19 U/L (0-33) 05/08/22 20:07 Alkaline Phosphatase 88 U/L (35-105) 05/08/22 20:07 Total Protein 7.9 g/dL (6.6-8.7) 05/08/22 20:07 Albumin 4.6 g/dL (3.5-5.2) 05/08/22 20:07 Globulin 3.3 g/dL (1.3-4.6) 05/08/22 20:07 Lipase 26 U/L (13-60) 05/08/22 20:07 HCG, Qual Negative (Negative) 05/08/22 20:07 Urine Color [place] (Yellow) 05/08/22 21:45 Urine Appearance Sl hazy (CLEAR) A 05/08/22 21:45 Urine pH 6 (5-7) 05/08/22 21:45 Ur Specific [place] 1.020 (1.005-1.030) 05/08/22 21:45 Urine Protein 1+ (Negative) H 05/08/22 21:45 Urine Glucose (UA) Norm (Normal) 05/08/22 21:45 Urine Ketones Negative (Negative) 05/08/22 21:45 Urine Blood 3+ (Negative) H 05/08/22 21:45 Urine Nitrate Negative (Negative) 05/08/22 21:45 Urine Bilirubin 1+ (Negative) H 05/08/22 21:45 Urine Urobilinogen 8 mg/dL (Negative) H 05/08/22 21:45 Ur Leukocyte Esterase Negative (Negative) 05/08/22 21:45 Urine RBC Too numerous to cnt /hpf (0-2) H 05/08/22 21:45 Urine WBC None /hpf (0-5) 05/08/22 21:45 Ur Squamous Epith Cells 5-10 /hpf (0-5) H 05/08/22 21:45 Amorphous Sediment 1+ /hpf 05/08/22 21:45 Urine Bacteria 1+ /hpf (NONE) H 05/08/22 21:45 Discharge Plan Discharge Patient Disposition: Home Clinical Impression: Abdominal pain, Nausea, vomiting, and diarrhea, Hematuria Condition: Stable Prescriptions: New ondansetron 4 mg tablet,disintegrating 4 mg PO Q6H PRN (Reason: nausea and vomiting) Qty: 14 0RF No Action metformin 1,000 mg Tablet 1,000 mg PO BID hydroxyzine HCl 25 mg tablet 25 mg PO Q6H PRN (Reason: anxiety) Qty: 20 0RF hydrocodone-acetaminophen 5-325 mg tablet 1 tab PO Q8H PRN (Reason: pain) Qty: 7 0RF ondansetron 4 mg film 4 mg PO DAILY PRN (Reason: nausea and vomiting) Qty: 10 0RF Discharge Orders: Discharge ED (Routine); Ordered 05/08/22 Ordered By: Ally Fowler Referrals: Burke Dior MD [Primary Care Provider] - Discharge Diet: Advance as tolerated and Clear Liquid Discharge Activity: Increase activity as tolerated Patient Instructions: Gastroenteritis (ED), Abdominal Pain (ED), Pain Management Activity Restrictions/Additional Instructions: Thank you for visiting the emergency department. You were seen and evaluated for abdominal pain. The exact cause of your symptoms is unclear the does not appear to need hospitalization at this time. Please follow-up with your primary care provider. Please start with a clear liquid diet and then advance as tolerated with bland foods to start. Return to the emergency department for anything that you are concerned about and feel needs emergency department evaluation. Stand Alone Forms: Work/School Release Coding Level of Care Code ED Lithographic Stripper for Liliana Rivas
[2022-05-08] MEDS: acetaminophen 500 mg Tablet 1000 MG PO (22:15)
[2022-05-08] MEDS: ondansetron 4 MG Tablet PO (22:16)
[2022-05-08] MEDS: ketorolac 30 mg/mL INJ 15 MG IVP (22:19)
[2022-05-08 22:29] LABS: Urine Appearance SL Hazy (CLEAR)
[2022-05-08 22:30] LABS: Glucose Urine UA Norm (Normal); Protein Urine 1+ (Negative); Urine Color Amber (Yellow); pH Urine 6 (5-7)
[2022-05-08 22:31] LABS: Add Urine Culture? No; Add Urine Microscopic? YES; Amorphous Sediment Urine 1+ /hpf; Bacteria Urine 1+ /hpf; Bilirubin Urine 1+ (Negative); Blood Urine 3+ (Negative); Ketones Urine Negative (Negative); Leukocyte Esterase Urine Negative (Negative); Nitrate Urine Negative (Negative); RBC Urine TOO NUMEROUS TO CNT /hpf (0-2); Urobilinogen Urine 8 mg/dL (Negative)
--- NOTE | 2022-05-08 22:35 | CTR_ITS ---
PROCEDURE INFORMATION: Exam: CT Abdomen And Pelvis With Contrast Exam date and time: 05/08/2022 10:46 PM Age: 26 years old Clinical indication: Nausea and vomiting; Abdominal pain; Prior surgery; Surgery type: Gb; Patient HX: Periumbilical pain with n/v/d. ; Additional info: Abd pain, periumbilical and migratory, diarrhea, n/v TECHNIQUE: Imaging protocol: Computed tomography of the abdomen and pelvis with contrast. Radiation optimization: All CT scans at this facility use at least one of these dose optimization techniques: automated exposure control; mA and/or kV adjustment per patient size (includes targeted exams where dose is matched to clinical indication); or iterative reconstruction. Contrast material: OMNI 350; Contrast volume: 100 ml; Contrast route: INTRAVENOUS (IV); Other protocol: This patient has received 2 known CTs and 0 known cardiac nuclear medicine studies in the 12 months prior to the current study. COMPARISON: CT abdomen pelvis wo con [id number] 09/11/2021 11:09 PM RADIATION DOSE METRICS: Total DLP (mGy-cm): 1253.81 FINDINGS: Liver: Normal. No mass. Gallbladder and bile ducts: Cholecystectomy. Pancreas: Normal. No ductal dilation. Spleen: Normal. No splenomegaly. Adrenal glands: Normal. No mass. Kidneys and ureters: Normal. No hydronephrosis. Stomach and bowel: Constipation. Appendix: No evidence of appendicitis. Intraperitoneal space: Unremarkable. No free air. No significant fluid collection. Vasculature: Unremarkable. No abdominal aortic aneurysm. Lymph nodes: Unremarkable. No enlarged lymph nodes. Urinary bladder: Unremarkable as visualized. Reproductive: Unremarkable as visualized. Bones/joints: Unremarkable. No acute fracture. Soft tissues: Unremarkable. CT/CT abdomen pelvis w con* [id number] IMPRESSION: 1. Negative for acute inflammatory process in the abdomen or pelvis. 2. Cholecystectomy. 3. Constipation.
[2022-05-08 22:44] VITALS: RESP 16
[2022-05-08] MEDS: morphine 4 mg/mL SDV 1 mL IVP (22:44)
[2022-05-08] MEDS: iohexol 350 mg/mL 500 mL Btl (per mL) IV (22:47)
[2022-05-08 22:57] VITALS: BP 112/67; PULSE 76; RESP 16; O2SAT 99
[2022-05-08 23:38] VITALS: BP 107/76; PULSE 60; RESP 14; O2SAT 95
== END 2022-05-08 23:40 | disposition home or self-care (01) ==
PROVIDERS: Emergency Provider Emergency Medicine; PCP Family Medicine
DX: R10.33 Periumbilical pain (principal); R11.2 Nausea with vomiting, unspecified; R19.7 Diarrhea, unspecified; R31.9 Hematuria, unspecified; K59.00 Constipation, unspecified
CPT/HCPCS: 36415; 74177; 80053; 81001; 83690; 84703; 85025; 96374; 96375; 99285; J1885; J2270; Q0162; Q9967

== ENCOUNTER 2022-08-30 12:12 | Emergency (ER) | payer OTHER, SELFPAY ==
[2022-08-30 12:36] VITALS: BP 154/111; PULSE 81; RESP 16; TEMP 36.7; O2SAT 99
--- NOTE | 2022-08-30 13:06 | CT_ITS ---
WS: [id number] CT ABDOMEN AND PELVIS WITH CONTRAST HISTORY: Bilateral at upper abd pain, nausea and vomiting TECHNIQUE: Imaging performed of the abdomen and pelvis with IV contrast. Single phase imaging of the abdomen. Coronal and sagittal reformats are submitted. All CT scans at [facility] use at [address] one of these dose optimization techniques: automated exposure control; mA and/or kV adjustment per patient size (includes targeted exams where dose is matched to clinical indication); or iterative re construction. IV CONTRAST: Omnipaque 350; 100 mL IV. Oral contrast: No DLP: 1277.93 mGy.cm COMPARISON: 05/08/2022 Lower thorax: Lung bases are clear. Heart is normal size. No hiatal hernia. Liver/biliary system: Normal size with no intrahepatic dilatation. Gallbladder: Status post cholecystectomy. Pancreas: Normal size pancreas and pancreatic duct. No adjacent inflammation. Spleen: Normal size spleen. No mass or infarct. Adrenal glands: Normal. Right kidney: Normal. Left kidney: Normal. Aorta: Normal. Lymphadenopathy: None. Free fluid: None. GI tract: Unremarkable. Normal appendix. No obstruction. Abdominal wall: Unremarkable abdominal wall. No hernia. Pelvis: No free fluid or adenopathy within the pelvis. Normal size uterus. Small follicle RIGHT ovary . No free fluid. Bones: Unremarkable. CT/CT abdomen pelvis w con* [id number] IMPRESSION: 1. No acute abdominal or pelvic abnormalities. 2. No free fluid or free air. 3. Prior cholecystectomy. 4. Normal appendix.
--- NOTE | 2022-08-30 13:09 | ED_ITS ---
HPI - Abdominal Pain General: Chief Complaint: Abdominal Pain Stated Complaint: abd pain Time Seen by Provider: 08/30/22 12:57 History of Present Illness: Patient is a 27-year-old female who comes to the ED with abdominal pain. Symptoms started approximately 2 days ago. She states that she started off having intense abdominal pain is located all throughout the abdomen but is pred ominantly in the upper part of abdomen bilaterally. She rates the pain currently a 10 out of 10. She endorses having nausea and vomiting and says that all day yesterday she was unable to keep any food or fluids down. Denies any fevers, bladder or bowel symptoms. Patient says she has been having normal bowel movements daily. Past surgical history of cholecystectomy. Associated Symptoms: Reports nausea and vomiting; Denies chills, constipation, diarrhea, dysuria, fever(s), hematochezia and hematuria Related Data: Date of Last Menstrual Period: 08/27/22 Review of Systems Const: Denies: fever(s), chills or fatigue Eyes: Denies: change in vision or eye discomfort ENMT: Denies: throat pain, odynophagia, nasal discharge or nasal congestion Card: Denies: chest pain, palpitations, edema, swelling of feet/ankles, dyspnea on exertion or orthopnea Resp: Denies: dyspnea, productive cough or non-productive cough GI: Reports: abdominal pain, nausea and vomiting; Denies: diarrhea, constipation or hematochezia : Denies: flank pain, dysuria or hematuria Musc: Denies: neck pain, back pain or extremity swelling Skin/Breast: Denies: rash or new lesions Neuro: Denies: headache(s), numbness in extremities or weakness in extremities PFSH ED PFSH: Medical History Gastroesophageal reflux disease Surgical History History of cholecystectomy Social History Smoking and tobacco status: never smoked Female Reproductive History: Date of last menstrual period: 08/27/22 Para: 0 Physical Exam Const: COMMON NORMALS: no acute distress, patient oriented x3 and alert HENMT: COMMON NORMALS: normocephalic HEAD & SCALP: normocephalic MOUTH: Normal oral and palatal mucosa present and moist mucous membranes abnormal Details: parched THROAT: posterior oropharynx normal and uvula midline Neck/C-Spine: COMMON NORMALS: supple GENERAL: Yes normal visual inspection Resp: COMMON NORMALS: normal respiratory effort, No retractions, No use of ac cessory muscles and clear to auscultation bilaterally AUSCULTATION: clear to auscultation bilaterally Cardio: COMMON NORMALS: regular rate, regular rhythm, S1 normal heart sound present, S2 normal heart sound present, No gallops present (Cardio), No clicks present (Cardio), No murmurs present (Cardio) and Peripheral pulses 2+ throughout RATE: regular rate RHYTHM: regular rhythm HEART SOUNDS: S1 normal heart sound present and S2 normal heart sound present PERIPHERAL PULSES: Peripheral pulses 2+ throughout GI: COMMON NORMALS: Normal to inspection, nondistended, normoactive bowel sounds present, Soft to palpation and no masses PALPATION: Yes Soft to palpation and Yes Tenderness to palpation present (GI) (Generalized tenderness throughout) Details: LUQ and RUQ : COMMON NORMALS: Yes no CVA tenderness BLADDER/KIDNEY EXAM: Yes no CVA tenderness Back/Pelvis: COMMON NORMALS: no CVA tenderness Extremity: COMMON NORMALS: normal to inspection Neuro: COMMON NORMALS: patient oriented x3 SENSORIUM/ORIENTATION: Yes alert GAIT: Yes Normal gait present Skin: GENERAL SKIN EXAM: dry skin Course Vital Signs: Vital signs: Vital Signs Temperature 98.0 F 08/30/22 12:36 Pulse Rate 81 08/30/22 14:30 Respiratory Rate 15 08/30/22 14:30 Blood Pressure 133/99 08/30/22 14:30 Pulse Oximetry 97 08/30/22 14:30 Oxygen Delivery Me thod Room Air 08/30/22 14:30 MDM - Abdominal Pain Medical Decision Making Patient is a 27-year-old female who comes to the ED with abdominal pain. Symptoms started approximately 2 days ago. She states that she started off having intense abdominal pain is located all throughout the abdomen but is predominantly in the upper part of abdomen bilaterally. She rates the pain currently a 10 out of 10. She endorses having nausea and vomiting and says that all day yesterday she was unable to keep any food or fluids down. Denies any fevers, bladder or bowel symptoms. Patient says she has been having normal bowel movements daily. Past surgical history of cholecystectomy. Vitals are s table. Patient appears nontoxic in no acute distress. She does have some left and right upper quadrant abdominal tenderness but rest of exam is benign. CBC, UA and CMP are unremarkable. CT of abdomen pelvis shows no acute findings. Patient was given 1 L of IV fluids, pain and nausea meds and her symptoms improved. She was able to tolerate p.o. fluids here in the ED. She was stable for discharge home and diagnosed with viral gastroenteritis. She was sent home with a prescription for dicyclomine and Zofran and told to follow-up with her PCP within the next week. Return to ED precautions given. Patient understood and agreed with plan. Lab Data I reviewed the patient's lab results. 08/30/22 13:00 08/30/22 13:00 Labs/Radiology: Radiology Impressions Abdomen/Pelvis CT 08/30/22 13:06 IMPRESSION: 1. No acute abdominal or pelvic abnormalities. 2. No free fluid or free air. 3. Prior cholecystectomy. 4. Normal appendix. Laboratory Results WBC 9.4 10^3/uL (4.0-10.0) 08/30/22 13:00 RBC 5.26 10^6/uL (4.1-5.3) 08/30/22 13:00 Hgb 14.4 g/dL (11.5-15.3) 08/30/22 13:00 Hct 45.6 % (37.0-47.0) 08/30/22 13:00 MCV 86.7 fl (81-99) 08/30/22 13:00 MCH 27.4 pg (28.0-34.0) L 08/30/22 13:00 MCHC 31.6 g/dL (30.0-36.0) 08/30/22 13:00 RDW 12.9 % (12.1-15.1) 08/30/22 13:00 Plt Count 305 10^3/cmm (130-400) 08/30/22 13:00 MPV 11.4 fL (7.4-10.4) H 08/30/22 13:00 Neut % (Auto) 68.2 % 08/30/22 13:00 Lymph % (Auto) 23.4 % 08/30/22 13:00 [place] % (Auto) 6.1 % 08/30/22 13:00 Eos % (Auto) 1.7 % 08/30/22 13:00 Baso % (Auto) 0.3 % 08/30/22 13:00 Neut # (Auto) 6.39 10^3/uL (1.8-7.7) 08/30/22 13:00 Lymph # (Auto) 2.2 10^3/uL (0.8-4.8) 08/30/22 13:00 [place] # (Auto) 0.6 10^3/uL (0.2-0.9) 08/30/22 13:00 Eos # (Auto) 0.2 10^3/uL (0.0-0.8) 08/30/22 13:00 Baso # (Auto) 0.0 10^3/uL (0.0-0.1) 08/30/22 13:00 Nucleated RBC % (auto) 0 % 08/30/22 13:00 Nucleated RBCs # 0.0 /100WBC 08/30/22 13:00 Sodium 136 mmol/L (136-145) 08/30/22 13:00 Potassium 3.8 mmol/L (3.5-5.1) 08/30/22 13:00 Chloride 99 mmol/L (98-107) 08/30/22 13:00 Carbon Dioxide 27 mmol/L (22-29) 08/30/22 13:00 Anion Gap 13.8 (5-19) 08/30/22 13:00 BUN 14 mg/dL (6-20) 08/30/22 13:00 Creatinine 0.7 mg/dL (0.5-0.9) 08/30/22 13:00 GFR Calculation 102.0 mL/min (90-130) 08/30/22 13:00 Glucose 87 mg/dL (65-115) 08/30/22 13:00 Calculated Osmolality 282 mOsm/kg (285-295) L 08/30/22 13:00 Calcium 9.3 mg/dL (8.5-10.5) 08/30/22 13:00 Total Bilirubin 0.3 mg/dL (0.15-1.2) 08/30/22 13:00 AST 13 U/L (0-32) 08/30/22 13:00 ALT 14 U/L (0-33) 08/30/22 13:00 Alkaline Phosphatase 74 U/L (35-105) 08/30/22 13:00 Total Protein 8.0 g/dL (6.6-8.7) 08/30/22 13:00 Albumin 4.5 g/dL (3.5-5.2) 08/30/22 13:00 Globulin 3.5 g/dL (1.3-4.6) 08/30/22 13:00 Lipase 24 U/L (13-60) 08/30/22 13:00 HCG, Qual Negative (Negative) 08/30/22 13:00 Urine Color Yellow (Yellow) 08/30/22 13:00 Urine Appearance Hazy (CLEAR) A 08/30/22 13:00 Urine pH 5 (5-7) 08/30/22 13:00 Ur Specific [place] 1.015 (1.005-1.030) 08/30/22 13:00 Urine Protein Neg (Negative) 08/30/22 13:00 Urine Glucose (UA) Norm (Normal) 08/30/22 13:00 Urine Ketones Negative (Negative) 08/30/22 13:00 Urine Blood 3+ (Negative) H 08/30/22 13:00 Urine Nitrate Negative (Negative) 08/30/22 13:00 Urine Bilirubin Neg (Negative) 08/30/22 13:00 Urine Urobilinogen Neg mg/dL (Negative) 08/30/22 13:00 Ur Leukocyte Esterase Trace (Negative) H 08/30/22 13:00 Urine RBC 5-10 /hpf (0-2) H 08/30/22 13:00 Urine WBC 0-4 /hpf (0-5) H 08/30/22 13:00 Ur Squamous Epith Cells 25-40 /hpf (0-5) H 08/30/22 13:00 Amorphous Sediment Not Reportable 08/30/22 13:00 Urine Bacteria 1+ /hpf (NONE) H 08/30/22 13:00 Urine Mucus 1+ /hpf 08/30/22 13:00 Discharge Plan Discharge Patient Disposition: Home Clinical Impression: Viral gastroenteritis Condition: Stable Prescriptions: New ondansetron 4 mg tablet,disintegrating 4 mg PO Q8H PRN (Reason: nausea and vomiting) Qty: 20 0RF dicyclomine 20 mg tablet 20 mg PO TID PRN (Reason: Abdominal cramping pain) Qty: 20 0RF No Action omeprazole 10 mg capsule,delayed release(DR/EC) 10 mg PO DAILY Qty: 10 0RF metformin 1,000 mg Tablet 1,000 mg PO BID hydroxyzine HCl 25 mg tablet 25 mg PO Q6H PRN (Reason: anxiety) Qty: 20 0RF Discharge Orders: Discharge ED (Routine); Ordered 08/30/22 Ordered By: Gavin Leon Referrals: Burke Dior MD [Primary Care Provider] - Discharge Diet: Advance as tolerated and Clear Liquid Discharge Activity: Increase activity as tolerated Patient Instructions: Gastroenteritis (ED) Activity Restrictions/Additional Instructions: Follow-up with medical provider as directed in the next 5 to 7 days for reevaluation. Take medications as prescribed. Return to the ER or your medical provider if condition worsens. Please read and understand discharge instructions. Thank you for choosing [facility] for your healthcare needs today. Please realize this is an emergency room and that we are providing you with a medical screening exam and this may not be complete and all inclusive of all the testing and or work up that you may need to determine your ailment or severity of your illness. It is very important that you follow up as instructed or that you return to the Emergency Department should you have concerns or if your condition changes or worsens in any way. Stand Alone Forms: Work/School Release Coding Level of Care Code ED Radar Air Traffic Controller for Liliana Rivas
[2022-08-30 13:12] LABS: Basophils % 0.3 %; Eosinophils # 0.2 10^3/uL (0.0-0.8); Eosinophils % 1.7 %; Hematocrit 45.6 % (37.0-47.0); Hemoglobin 14.4 g/dL (11.5-15.3); Lymphocytes # 2.2 10^3/uL (0.8-4.8); Lymphocytes % 23.4 %; Mean Corpuscular HGB Conc 31.6 g/dL (30.0-36.0); Mean Corpuscular Hemoglobin 27.4 pg (28.0-34.0); Mean Corpuscular Volume 86.7 fl (81-99); Mean Platelet Volume 11.4 fL (7.4-10.4); Monocytes # 0.6 10^3/uL (0.2-0.9); Monocytes % 6.1 %; Neutrophils # 6.39 10^3/uL (1.8-7.7); Neutrophils % 68.2 %; Nucleated Red Blood Cells % 0 %; Platelet Count 305 10^3/cmm (130-400); Red Blood Count 5.26 10^6/uL (4.1-5.3); Red Cell Distribution Width 12.9 % (12.1-15.1); White Blood Count 9.4 10^3/uL (4.0-10.0)
[2022-08-30 13:26] LABS: Add Urine Microscopic? YES; Bilirubin Urine Neg (Negative); Blood Urine 3+ (Negative); Glucose Urine UA Norm (Normal); HCG, Serum Qual Negative (Negative); Ketones Urine Negative (Negative); Leukocyte Esterase Urine Trace (Negative); Nitrate Urine Negative (Negative); Protein Urine Neg (Negative); Specific Gravity, Urine 1.015 (1.005-1.030); Urine Appearance Hazy (CLEAR); Urine Color Yellow (Yellow); Urobilinogen Urine Neg (Negative); pH Urine 5 (5-7)
[2022-08-30 13:27] LABS: Alanine Aminotransferase 14 U/L (0-33); Albumin Level 4.5 g/dL (3.5-5.2); Alkaline Phosphatase 74 U/L (35-105); Anion Gap 13.8 (5-19); Aspartate Amino Transferase 13 U/L (0-32); Blood Urea Nitrogen 14 mg/dL (6-20); Calcium 9.3 mg/dL (8.5-10.5); Carbon Dioxide 27 mmol/L (22-29); Chloride 99 mmol/L (98-107); Globulin 3.5 g/dL (1.3-4.6); Glucose 87 mg/dL (65-115); Lipase 24 U/L (13-60); Osmolality Calculated 282 mOsm/kg (285-295); Potassium 3.8 mmol/L (3.5-5.1); Sodium 136 mmol/L (136-145); Total Bilirubin 0.3 mg/dL (0.15-1.2)
[2022-08-30 13:28] LABS: Add Urine Culture? No; Bacteria Urine 1+ /hpf; Mucus Urine 1+ /hpf; Squamous Epithelial Cell Urine 25-40 /hpf (0-5); WBC Urine 0-4 /hpf (0-5)
[2022-08-30] MEDS: morphine 4 mg/mL SDV 1 mL IVP ×2 (13:30→14:45)
[2022-08-30] MEDS: sodium chloride 0.9% 1,000 ML 999 ML IV (13:30)
[2022-08-30] MEDS: ondansetron 2 mg/ML SDV 2 mL 4 MG IVP (13:30)
[2022-08-30 13:36] VITALS: BP 135/85; PULSE 72; RESP 16; O2SAT 98
[2022-08-30] MEDS: iohexol 350 mg/mL 500 mL Btl (per mL) IV (13:45)
[2022-08-30 14:00] VITALS: BP 123/93; PULSE 78; RESP 14; O2SAT 97
[2022-08-30 14:30] VITALS: BP 133/99; PULSE 81; RESP 15; O2SAT 97
--- NOTE | 2022-08-30 14:30 | PC.NURSE ---
Pt given clear soda to sip on, states she is still having abdominal pain
[2022-08-30] MEDS: metoclopramide 5 mg/mL SDV 2 mL 10 MG IVP (14:45)
== END 2022-08-30 15:11 | disposition home or self-care (01) ==
PROVIDERS: Emergency Medicine; Emergency Provider Physician Assistant; PCP Family Medicine
DX: A08.4 Viral intestinal infection, unspecified (principal)
CPT/HCPCS: 74177; 80053; 81001; 83690; 84703; 85025; 96361; 96374; 96375; 96376; 99285; J2270; J2405; J2765; J7030; Q9967

== ENCOUNTER 2022-12-18 19:34 | Emergency (ER) | payer SELFPAY ==
--- NOTE | 2022-12-18 19:38 | ECG_ITS ---
[facility] Test Date: 2022-12-18 Pat Name: Liz Webster Department: Room: Gender: Female Supervisor Garage: : 1995 Requested By: Harpal Bolanos Order Number: [id number] Artur MD: Mars Michelle M.D. Measurements Intervals [place] Rate: 97 P: 40 [place]: 155 QRS: -8 QRSD: 81 T: 41 QT: 303 QTc: 387 Interpretive Statements SINUS RHYTHM POSSIBLE ANTERIOR MYOCARDIAL INFARCTION , PROBABLY OLD [30 ms Q WAVE IN V3/V4, OR R < 0.2 mV IN V4] Compared to ECG 10/19/2021 10:51:23 Myocardial infarct finding now present Sinus arrhythmia no longer present Incomplete right bundle-branch block no longer present Electronically Signed On 12-19-2022 7:41:17 CDT by Mars Michelle M.D. [id number]
[2022-12-18 19:40] VITALS: BP 135/90; PULSE 91; RESP 16; TEMP 36.8; O2SAT 98; BMI 47.2
--- NOTE | 2022-12-18 20:04 | XRR_ITS ---
PROCEDURE INFORMATION: Exam: XR Chest Exam date and time: 12/18/2022 8:09 PM Age: 27 years old Clinical indication: Pain; Chest pressure; Additional info: Chest pain TECHNIQUE: Imaging protocol: Radiologic exam of the chest. Views: 1 view. COMPARISON: CR XR chest 1V portable [id number] 01/27/2022 9:22 PM FINDINGS: Lungs: Unremarkable. No consolidation. Pleural spaces: Unremarkable. No pleural effusion. No pneumothorax. Heart/Mediastinum: Unremarkable. No cardiomegaly. Bones/joints: Unremarkable. XR/XR chest 1V portable [id number] IMPRESSION: No acute findings.
[2022-12-18 20:35] LABS: Basophils # 0.1 10^3/uL (0.0-0.1); Basophils % 0.4 %; Eosinophils # 0.2 10^3/uL (0.0-0.8); Hematocrit 43.6 % (36-47); Lymphocytes # 2.9 10^3/uL (0.8-4.8); Lymphocytes % 25.5 %; Mean Corpuscular HGB Conc 31.4 g/dL (30-55); Mean Corpuscular Hemoglobin 27.5 pg (27-33); Mean Corpuscular Volume 87.4 fl (85-98); Mean Platelet Volume 11.4 fL (7.4-10.4); Monocytes # 0.8 10^3/uL (0.2-0.9); Monocytes % 7.3 %; Neutrophils # 7.38 10^3/uL (1.8-7.7); Neutrophils % 64.5 %; Nucleated Red Blood Cells % 0 %; Platelet Count 318 10^3/cmm (157-399); Red Blood Count 4.99 10^6/uL (3.85-5.65); Red Cell Distribution Width 13.2 % (12.1-15.1); White Blood Count 11.47 10^3/uL (3.29-11.43)
[2022-12-18 21:00] LABS: Troponin(5th) Baseline < 6 ng/L (0-10)
[2022-12-18 21:02] LABS: Alanine Aminotransferase 15 U/L (0-33); Albumin Level 4.1 g/dL (3.5-5.2); Alkaline Phosphatase 78 U/L (35-105); Anion Gap 16.9 (5-19); Aspartate Amino Transferase 13 U/L (0-32); Blood Urea Nitrogen 12 mg/dL (6-20); Calcium 9.3 mg/dL (8.5-10.5); Carbon Dioxide 20 mmol/L (22-29); Chloride 104 mmol/L (98-107); Globulin 3.1 g/dL (1.3-4.6); Glucose 112 mg/dL (65-115); Lipase 33 U/L (13-60); Osmolality Calculated 285 mOsm/kg (285-295); Potassium 3.9 mmol/L (3.5-5.1); Sodium 137 mmol/L (136-145); Total Bilirubin 0.2 mg/dL (0.15-1.2); Total Protein 7.2 g/dL (6.6-8.7)
[2022-12-18] MEDS: lidocaine 2% viscous 15 ML, aluminum-mag hydrox-simethicon 30 ML, sucralfate oral liq 1 GM PO (21:23)
[2022-12-18 21:26] LABS: HCG Qualitative Urine. Negative (Negative)
[2022-12-18 21:32] LABS: Add Urine Microscopic? YES; Amphetamines Screen Urine Negative (Negative); Bacteria Urine 1+ /hpf; Barbiturates Screen Urine Negative (Negative); Benzodiazepines Screen Urine Negative (Negative); Bilirubin Urine Neg (Negative); Blood Urine Neg (Negative); Cocaine Screen Urine Negative (Negative); Glucose Urine UA Norm (Normal); Ketones Urine Negative (Negative); Leukocyte Esterase Urine 1+ (Negative); Mucus Urine 2+ /hpf; Nitrate Urine Negative (Negative); Opiate Screen Urine Negative (Negative); PCP Screen Urine Negative (Negative); Protein Urine Neg (Negative); Specific Gravity, Urine 1.025 (1.005-1.030); Squamous Epithelial Cell Urine 15-25 /hpf (0-5); THC Screen Urine Negative (Negative); Urine Appearance Cloudy (CLEAR); Urine Color Yellow (Yellow); Urobilinogen Urine Neg (Negative); WBC Urine 0-4 /hpf (0-5); pH Urine 5 (5-7)
[2022-12-18 21:33] LABS: Add Urine Culture? No; Amorphous Sediment Urine 2+ /hpf
--- NOTE | 2022-12-18 21:40 | W.ED.ABDPA2 ---
HPI - Abdominal Pain General: Chief Complaint: Abdominal Pain Stated Complaint: abdomin and chest pain Time Seen by Provider: 12/18/22 20:56 History of Present Illness: Patient presents to the ER with complaints of upper abdominal epigastric pain that radiates into her chest. Patient says she vomited today without relief. Patient has had a history of a cholecystectomy and GERD. Patient was seen for similar signs and symptoms and on Saturday and tested negative for COVID. Patient is tender to palpate in the epigastric region and chest wall. Related Data: Date of Last Menstrual Period: 12/13/22 Review of Systems General: Reports: 10 or more systems reviewed and unremarkable except in HPI and below PFSH ED PFSH: Medical History Gastroesophageal reflux disease Surgical History History of cholecystectomy Social History Smoking and tobacco status: never smoked Female Reproductive History: Date of last menstrual period: 12/13/22 Para: 0 Physical Exam Const: COMMON NORMALS: no acute distress, average body habitus, patient oriented x3, no limitations, healthy appearing, alert and well nourished HENMT: COMMON NORMALS: normocephalic, atraumatic, hearing grossly normal bilaterally, external ears normal, Normal external nose present and moist oral mucous membranes HEAD & SCALP: normocephalic and atraumatic NOSE: Normal external nose present EXTERNAL EAR: Yes external ears normal Eye: COMMON NORMALS: Equal, round and reactive pupils present, EOMs intact bilaterally, conjunctivae normal and no scleral icterus CONJUNCTIVA: Yes conjunctivae normal PUPIL: Yes Equal, round and reactive pupils present Neck/C-Spine: COMMON NORMALS: full ROM, no lymphadenopathy, supple, no meningeal signs, no JVD and Thyroid normal THYROID: Thyroid normal Lymph: LYMPHATIC: no lymphadenopathy noted Chest: COMMONS NORMALS: normal inspection of the chest; negative for normal palpation of entire chest wall (Tenderness to palpation over anterior chest wall) Resp: COMMON NORMALS: normal respiratory effort, No retractions, No use of accessory muscles and clear to auscultation bilaterally AUSCULTATION: clear to auscultation bilaterally Cardio: COMMON NORMALS: no JVD, regular rate, regular rhythm, S1 normal heart sound present, S2 normal heart sound present, No gallops present (Cardio), No clicks present (Cardio), No murmurs present (Cardio) and No rub (Cardio) RATE: regular rate RHYTHM: regular rhythm HEART SOUNDS: S1 normal heart sound present and S2 normal heart sound present GI: COMMON NORMALS: Normal to inspection, nondistended, normoactive bowel sounds present, Soft to palpation, No hepatosplenomegaly present and no masses; negative for non-tender (Tender to palpate over upper abdominal epigastric area.) PALPATION: Yes Soft to palpation and Yes No hepatosplenomegaly present : COMMON NORMALS: Yes no CVA tenderness BLADDER/KIDNEY EXAM: Yes no CVA tenderness Back/Pelvis: COMMON NORMALS: no CVA tenderness Neuro: COMMON NORMALS: patient oriented x3 SENSORIUM/ORIENTATION: Yes alert MENINGEAL SIGNS: Yes no meningeal signs Course Vital Signs: Vital signs: Vital Signs Temperature 98.2 F 12/18/22 19:40 Pulse Rate 91 12/18/22 19:40 Respiratory Rate 16 12/18/22 19:40 Blood Pressure 135/90 12/18/22 19:40 Pulse Oximetry 98 12/18/22 19:40 Oxygen Delivery Me thod Room Air 12/18/22 19:40 MDM - Abdominal Pain Medical Decision Making Patient presents with epigastric pain is radiating up into her chest. Both these pains are reproducible with palpation. Patient has had her gallbladder out. Patient was worked up with a normal fashion with lab work and a chest x-ray. All of which were benign. Patient was given 1 dose of GI cocktail with no results. Patient was then given 60 mg of Toradol IM with improvement of the patient's pain. Patient be discharged home with a diagnosis of epigastric abdominal pain. Patient is to follow-up with her PCP within the next 7 days for further evaluation and treatment. Differential Diagnosis Likely abdominal pain; Unlikely acute appendicitis, calculus of kidney, constipation, diverticulitis, endometriosis, gastroenteritis, pancreatitis or small bowel obstruction Medical Records I reviewed the patient's medical records. Lab Data I reviewed the patient's lab results. 12/18/22 20:27 12/18/22 20:27 Labs/Radiology: Radiology Impressions Chest X-Ray 12/18/22 20:04 IMPRESSION: No acute findings. Laboratory Results WBC 11.47 10^3/uL (3.29-11.43) H 12/18/22 20: RBC 4.99 10^6/uL (3.85-5.65) 12/18/22 20: Hgb 13.70 g/dL (11.27-16.99) 12/18/22 20: Hct 43.6 % (36-47) 12/18/22 20: MCV 87.4 fl (85-98) 12/18/22 20: MCH 27.5 pg (27-33) 12/18/22 20: MCHC 31.4 g/dL (30-55) 12/18/22 20: RDW 13.2 % (12.1-15.1) 12/18/22: Plt Count 318 10^3/cmm (157-399) 12/18/22 20: MPV 11.4 fL (7.4-10.4) H 12/18/22 20: Neut % (Auto) 64.5 % 12/18/22 20: Lymph % (Auto) 25.5 % 12/18/22 20: [place] % (Auto) 7.3 % 12/18/22 20: Eos % (Auto) 2.0 % 12/18/22 20: Baso % (Auto) 0.4 % 12/18/22 20: Neut # (Auto) 7.38 10^3/uL (1.8-7.7) 12/18/22 20: Lymph # (Auto) 2.9 10^3/uL (0.8-4.8) 12/18/22 20: [place] # (Auto) 0.8 10^3/uL (0.2-0.9) 12/18/22 20: Eos # (Auto) 0.2 10^3/uL (0.0-0.8) 12/18/22 20: Baso # (Auto) 0.1 10^3/uL (0.0-0.1) 12/18/22 20: Nucleated RBC % (auto) 0 % 12/18/22: Nucleated RBCs # 0.0 /100WBC 12/18/22 20: Sodium 137 mmol/L (136-145) 12/18/22 20:27 Potassium 3.9 mmol/L (3.5-5.1) 12/18/22 20:27 Chloride 104 mmol/L (98-107) 12/18/22 20:27 Carbon Dioxide 20 mmol/L (22-29) L 12/18/22 20:27 Anion Gap 16.9 (5-19) 12/18/22 20:27 BUN 12 mg/dL (6-20) 12/18/22 20:27 Creatinine 0.7 mg/dL (0.5-0.9) 12/18/22 20:27 GFR Calculation 102.0 mL/min (90-130) 12/18/22 20: Glucose 112 mg/dL (65-115) 12/18/22 20: Calculated Osmolality 285 mOsm/kg (285-295) 12/18/22 20: Calcium 9.3 mg/dL (8.5-10.5) 12/18/22 20:27 Total Bilirubin 0.2 mg/dL (0.15-1.2) 12/18/22 20:27 AST 13 U/L (0-32) 12/18/22 20:27 ALT 15 U/L (0-33) 12/18/22 20:27 Alkaline Phosphatase 78 U/L (35-105) 12/18/22 20: Troponin T Baseline < 6 ng/L (0-10) 12/18/22 20:27 Total Protein 7.2 g/dL (6.6-8.7) 12/18/22 20:27 Albumin 4.1 g/dL (3.5-5.2) 12/18/22 20: Globulin 3.1 g/dL (1.3-4.6) 12/18/22 20: Lipase 33 U/L (13-60) 12/18/22 20:27 HCG, Qual Negative (Negative) 12/18/22 21:06 Urine Color Yellow (Yellow) 12/18/22 20:16 Urine Appearance Cloudy (CLEAR) A 12/18/22 20:16 Urine pH 5 (5-7) 12/18/22 20:16 Ur Specific [place] 1.025 (1.005-1.030) 12/18/22 20:16 Urine Protein Neg (Negative) 12/18/22 20:16 Urine Glucose (UA) Norm (Normal) 12/18/22 20:16 Urine Ketones Negative (Negative) 12/18/22 20:16 Urine Blood Neg (Negative) 12/18/22 20:16 Urine Nitrate Negative (Negative) 12/18/22 20:16 Urine Bilirubin Neg (Negative) 12/18/22 20:16 Urine Urobilinogen Neg mg/dL (Negative) 12/18/22 20:16 Ur Leukocyte Esterase 1+ (Negative) H 12/18/22 20:16 Urine RBC None /hpf (0-2) 12/18/22 20:16 Urine WBC 0-4 /hpf (0-5) H 12/18/22 20:16 Ur Squamous Epith Cells 15-25 /hpf (0-5) H 12/18/22 20:16 Amorphous Sediment 2+ /hpf 12/18/22 20:16 Urine Bacteria 1+ /hpf (NONE) H 12/18/22 20:16 Urine Mucus 2+ /hpf 12/18/22 20:16 Urine Opiates Screen Negative ng/mL (Negative) 12/18/22 20:16 Ur Barbiturates Screen Negative ng/mL (Negative) 12/18/22 20:16 Ur Phencyclidine Scrn Negative ng/mL (Negative) 12/18/22 20:16 Ur Amphetamines Screen Negative ng/mL (Negative) 12/18/22 20:16 U Benzodiazepines Scrn Negative ng/mL (Negative) 12/18/22 20:16 Urine Cocaine Screen Negative ng/mL (Negative) 12/18/22 20:16 U Marijuana (THC) Screen Negative ng/mL (Negative) 12/18/22 20:16 All radiology interpretation(s) finalized by discharge EKG Data EKG 1: I personally reviewed and interpreted this EKG as follows: EKG interpretation date: 12/18/22 EKG interpretation time: 22:01 Prior EKG tracings: not available for review Interpretation: EKG showed ventricular rate 66 bpm, PA interval 143, QRS 89, QTc 354, sinus rhythm with sinus arrhythmia, Discharge Plan Discharge Patient Disposition: Home Clinical Impression: Abdominal pain, epigastric, Anterior chest wall pain Condition: Stable Prescriptions: No Action omeprazole 10 mg capsule,delayed release(DR/EC) 10 mg PO DAILY Qty: 10 0RF metformin 1,000 mg Tablet 1,000 mg PO BID ondansetron 4 mg tablet,disintegrating 4 mg PO Q8H PRN (Reason: nausea and vomiting) Qty: 20 0RF dicyclomine 20 mg tablet 20 mg PO TID PRN (Reason: Abdominal cramping pain) Qty: 20 0RF hydroxyzine HCl 25 mg tablet 25 mg PO Q6H PRN (Reason: anxiety) Qty: 20 0RF Discharge Orders: Discharge ED (Routine); Ordered 12/18/22 Ordered By: Harpal Bolanos Referrals: Burke Dior MD [Primary Care Provider] - 1 week Patient Instructions: Chest Pain - Noncardiac, Abdominal Pain (ED) Activity Restrictions/Additional Instructions: Please follow-up with your family practice physician in the next 7 days for further evaluation and treatment of your abdominal pain and chest wall pain. Coding Level of Care Code ED Information Systems Security Specialist for Liliana Rivas
--- NOTE | 2022-12-18 22:01 | ECG_ITS ---
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 Measurements Intervals [place] Rate: 66 P: 40 [place]: 143 QRS: 15 QRSD: 89 T: 40 QT: 340 QTc: 359 Interpretive Statements SINUS RHYTHM WITH SINUS ARRHYTHMIA LOW QRS VOLTAGE IN PRECORDIAL LEADS [QRS DEFLECTION < 1.0 mV IN CHEST LEADS] POSSIBLE RIGHT VENTRICULAR CONDUCTION DELAY [RSR (QR) IN V1/V2] Compared to ECG 12/18/2022 19:38:30 Low QRS voltage now present Myocardial infarct finding no longer present Electronically Signed On 12-19-2022 7:42:08 CDT by Mars Michelle M.D. [id number]
[2022-12-18] MEDS: ketorolac 60 mg/2 mL INJ IM (22:26)
[2022-12-18 22:31] VITALS: BP 135/90; PULSE 91; RESP 16; TEMP 36.8; O2SAT 98
== END 2022-12-18 22:32 | disposition home or self-care (01) ==
PROVIDERS: Emergency Provider Emergency Medicine; PCP Family Medicine
DX: R10.13 Epigastric pain (principal); R07.89 Other chest pain; Z79.84 Long term (current) use of oral hypoglycemic drugs
CPT/HCPCS: 36415; 71045; 80053; 80306; 81001; 81025; 83690; 84484; 85025; 93005; 96372; 99285; J1885

== ENCOUNTER → 2023-04-18 16:11 | Outpatient (BNVA) | payer SELFPAY | PROVIDERS: PCP Family Medicine; Visit Provider Registered Nurse Neonatal Intensive Care | DX: R05.9 Cough, unspecified (principal) | CPT/HCPCS: 87400 ==

== ENCOUNTER 2023-09-05 16:30 | Outpatient (CLI) | payer SELFPAY ==
[2023-09-05 16:55] VITALS: BMI 56.5
[2023-09-05 17:05] VITALS: BP 164/111; PULSE 110
[2023-09-05 17:17] LABS: HCG Qualitative Urine. Negative (Negative)
[2023-09-05 17:22] VITALS: BP 210/86; PULSE 102
[2023-09-05 17:40] VITALS: BP 210/86; PULSE 102; RESP 22
--- NOTE | 2023-09-05 18:58 | PC.NURSE ---
PATIENT CAME TO [facility] CHECKED IN WITH COMPLAINT OF HEADACHE, NAUSEA AND ABD PAIN. INFORMATION OBTAINED AND PATIENT BROUGHT BACK TO TRIAGE OB 13. GENEVIEVE CRAIG RN TRIED TO OBTAINED FHT'S, PATIENT STATED THAT SHE WAS DUE TODAY WITH TWINS. AND WAS SCHEDULED TO BE INDUCED. GENEVIEVE CAME OUT OF ROOM CONCERNED THAT SHE COULD NOT FIND ANY HEART TONES SO MADELIN SCHMID RN WENT INTO HELP AND THEN THIS LACE ROLLER OPERATOR CAME BACK INTO DEPARTMENT (I HAD BEEN OUT HELPING ER DOCTOR WITH A PROCEDURE) I TOOK ULTRASOUND INTO ROOM JUST TO SEE IF I COULD SEE FETUSES AND GET HEART TONES, PATIENT HAS A LARGE ABDOMINAL ARE WITH LARGE PANNIS WITH THE HELP OF MADELIN WE HELD PANNIS UP AND THIS LACE ROLLER OPERATOR ALONE WITH MADELIN DID NOT SEE ANY EVIDENCE OF . WHILE DOING SCAN, GENEVIEVE WAS CALLING DR. RG ABOUT PATIENT. DURING SCAN I ASKED HER WHEN THEY TOLD HER SHE WAS AND SHE SAID THAT . I QUESTIONED WHERE SHE SAW DOCTOR AND SHE SAID OVER AT THAT CLINIC AND I ASKED HER WHERE AND SHE SAID [facility] WITH THAT LADY DOCTOR, ASKED HER WHERE SHE HAD HER ULTRASOUND AND SHE SAID OVER AT THE SAME CLINIC AND THEN WHO TOLD HER SHE WAS AND SHE SA[facility] ASKED HER WHEN SHE SAW DR. MARSH AND SHE TOLD ME LAST WEEK. AND SHE WAS SCHEDULED TO BE INDUCED. THIS LACE ROLLER OPERATOR AND MADELIN LEFT ROOM AFTER TELLING HER THAT WE WOULD BE TALKING WITH DR. RG AND RUNNING SOME LAB TESTS ON HER URINE. AFTER I TOLD HER AND HER 2 VISTORS WHOM I THOUGHT WAS HER FAMILY THAT I WAS NOT AN EXPERT THAT I DID NOT SEE ANY SIGNS OF A BOTH VISTORS LEFT THE ROOM. AFTER THEY LEFT I APOLOGIZED BECAUSE I QUESTIONED WHO THEY WERE AND SHE SAID THAT THEY WERE JUST HER NEIGHBORS. CAME OUT OF ROOM AND GENEVIEVE SAID THAT DR. RG HAD NO IDEA WHO SHE WAS AND LOOKED IN HER COMPUTER AND HAS NEVER SEEN HER. ORDERS TO DO UA TEST AND WE WOULD GO FROM THERE. THIS LACE ROLLER OPERATOR QUESTIONED WHAT HER DOCTOR LOOKED LIKE AND SHE SAID SHE SAID SHE HAD BROWN HAIR, I ASKED HER IF SHE WAS TALL OR SHORT AND SHE SAID SHE WAS TALL AND THAT SHE SAW HER LAST WEEK. THIS LACE ROLLER OPERATOR CALLED DR. RG AND ASKED HER IF SHE WANTS US TO DO ULTRASOUND AND SHE SAID NO THAT WE WOULD WAIT FOR URINE TEST AND IF NEGATIVE TAKE HER TO ER. THIS LACE ROLLER OPERATOR DID TELL DR. RG THAT HER BLOOD PRESSURES ARE ELEVATED. AFTER TELLING HER THAT URINE WAS NEGATIVE SHE SAID OK THEN WHY AM I HURTING I SAID I DON'T KNOW BUT IT IS NOT BECAUSE SHE IS TOLD HER THAT I WANTED HER TO GO TO ER BECAUSE OF HER BLOOD PRESSURES AND HER PAIN. SHE SAID THAT SHE WOULD TALK TO HER FRIENDS BECAUSE THEY ARE HER RIDE. AFTER THEY VISITED SHE AGREED TO GO TO ER AND I WALKED HER OVER THERE AND REPORT GIVEN VIA PHONE AND VERBALLY TO STAFF.
== END 2023-09-05 17:40 | disposition home or self-care (01) ==
LOC: OPOB 16:31 → OBGYN 16:32
PROVIDERS: PCP Family Medicine; Visit Provider Family Medicine
DX: O26.899 Other specified pregnancy related conditions, unspecified trimester (principal); Z3A.00 Weeks of gestation of pregnancy not specified; R51.9 Headache, unspecified; R11.0 Nausea; R10.9 Unspecified abdominal pain
CPT/HCPCS: 81025; 99211

== ENCOUNTER 2023-09-05 17:31 | Emergency (ER) | payer BC, MEDICAID, SELFPAY ==
[2023-09-05 17:37] VITALS: BP 147/111; PULSE 104; TEMP 36.9; O2SAT 98; BMI 56.2
[2023-09-05 18:02] LABS: Basophils # 0.1 10^3/uL (0.0-0.1); Basophils % 0.6 %; Eosinophils # 0.1 10^3/uL (0.0-0.8); Eosinophils % 1.4 %; Hematocrit 42.5 % (36-47); Lymphocytes # 1.6 10^3/uL (0.8-4.8); Lymphocytes % 20.7 %; Mean Corpuscular HGB Conc 32.5 g/dL (30-55); Mean Corpuscular Hemoglobin 27.8 pg (27-33); Mean Corpuscular Volume 85.7 fl (85-98); Mean Platelet Volume 11.1 fL (7.4-10.4); Monocytes # 0.5 10^3/uL (0.2-0.9); Monocytes % 6.8 %; Neutrophils # 5.55 10^3/uL (1.8-7.7); Neutrophils % 70.1 %; Nucleated Red Blood Cells % 0 %; Platelet Count 310 10^3/cmm (157-399); Red Blood Count 4.96 10^6/uL (3.85-5.65); Red Cell Distribution Width 12.9 % (12.1-15.1); White Blood Count 7.92 10^3/uL (3.29-11.43)
--- NOTE | 2023-09-05 18:02 | CTR_ITS ---
PROCEDURE INFORMATION: Exam: CT Abdomen And Pelvis With Contrast Exam date and time: 09/05/2023 6:20 PM Age: 28 years old Clinical indication: Abdominal pain; Localized; Right lower quadrant (rlq); Prior surgery; Surgery date: 6+ months; Surgery type: Gb; Additional info: Abd pain TECHNIQUE: Imaging protocol: Computed tomography of the abdomen and pelvis with contrast. Radiation optimization: All CT scans at this facility use at least one of these dose optimization techniques: automated exposure control; mA and/or kV adjustment per patient size (includes targeted exams where dose is matched to clinical indication); or iterative reconstruction. Contrast material: OMNI 350; Contrast volume: 100 ml; Contrast route: INTRAVENOUS (IV); COMPARISON: CR XR chest 1V portable [id number] 02/16/2021 5:07 PM RADIATION DOSE METRICS: Total DLP (mGy-cm): 1405 FINDINGS: Lungs: Ill-defined 8 mm nodular opacity in the left lower lobe, possibly infectious or inflammatory (image 24 of series 6). Diaphragm: No evidence of diaphragmatic defect. Liver: Hepatic steatosis. No evidence of focal hepatic lesion. Gallbladder and bile ducts: Status post cholecystectomy. No evidence of intrahepatic or extrahepatic biliary dilatation. Pancreas: Unremarkable. Spleen: Unremarkable. Adrenal glands: Unremarkable. Kidneys and ureters: No renal parenchymal abnormality. No hydronephrosis or ureteral stone. Stomach and bowel: No evidence of bowel obstruction or perienteric inflammatory changes. Appendix: Normal appendix. Intraperitoneal space: No evidence of free air or fluid collection. Vasculature: No aneurysmal dilatation or dissection of the abdominal aorta. The celiac trunk, SMA and KIRSTIN are grossly patent. No evidence of IVC thrombus. The portal vein, SMV and splenic veins are grossly patent. Lymph nodes: No adenopathy. Urinary bladder: Grossly unremarkable. Reproductive: Grossly unremarkable. Bones/joints: No evidence of acute fracture or aggressive osseous lesion. Soft tissues: No evidence of fluid collection or hematoma in the superficial soft tissues. CT/CT abdomen pelvis w con* [id number] IMPRESSION: 1. No evidence of acute abnormality in the abdomen or pelvis.
[2023-09-05] MEDS: morphine 4 mg/mL SDV 1 mL IVP (18:13)
[2023-09-05] MEDS: ondansetron 2 mg/ML SDV 2 mL 4 MG IVP (18:13)
[2023-09-05 18:17] LABS: Add Urine Microscopic? NO; Charge for UA Resulting for Rev
[2023-09-05 18:19] LABS: Acetaminophen < 5.0 ug/mL (10-30); Alanine Aminotransferase 31 U/L (0-33); Albumin Level 4.3 g/dL (3.5-5.2); Alcohol Level < 10 mg/dL (0-10); Alkaline Phosphatase 91 U/L (35-105); Anion Gap 15.8 (5-19); Aspartate Amino Transferase 26 U/L (0-32); Blood Urea Nitrogen 9 mg/dL (6-20); Calcium 8.9 mg/dL (8.5-10.5); Carbon Dioxide 24 mmol/L (22-29); Chloride 101 mmol/L (98-107); Creatinine Clr Calc Pharmacy 159.0937; Globulin 3.5 g/dL (1.3-4.6); Glomerular Filtration Rate 101.1 mL/min (90-130); Glucose 100 mg/dL (65-115); Osmolality Calculated 283 mOsm/kg (285-295); Potassium 3.8 mmol/L (3.5-5.1); Salicylate < 0.3 mg/dL (3-10); Sodium 137 mmol/L (136-145); Total Bilirubin 0.2 mg/dL (0.15-1.2); Total Protein 7.8 g/dL (6.6-8.7)
[2023-09-05 18:23] LABS: Urine Appearance Clear (CLEAR); Urine Color Yellow (Yellow); pH Urine 5 (5-7)
[2023-09-05] MEDS: iohexol 350 mg/mL 500 mL Btl (per mL) IV (18:23)
[2023-09-05 18:24] LABS: Bilirubin Urine 1+ (Negative); Blood Urine Neg (Negative); Glucose Urine UA Norm (Normal); Ketones Urine Negative (Negative); Leukocyte Esterase Urine Negative (Negative); Nitrate Urine Negative (Negative); Protein Urine Neg (Negative); Urobilinogen Urine Norm (Negative)
[2023-09-05 18:25] LABS: HCG, Serum Qual Negative (Negative)
[2023-09-05 18:30] LABS: Amphetamines Screen Urine Negative (Negative); Barbiturates Screen Urine Negative (Negative); Benzodiazepines Screen Urine Negative (Negative); Cocaine Screen Urine Negative (Negative); Opiate Screen Urine Negative (Negative); PCP Screen Urine Negative (Negative); THC Screen Urine Negative (Negative)
--- NOTE | 2023-09-05 19:20 | ED_ITS ---
HPI - General Adult 2 General: Chief complaint: General Medical Stated complaint: elevated bp Time Seen by Provider: 09/05/23 17:38 Source: patient Mode of arrival: ambulatory Limitations: no limitations History of Present Illness: 28-year-old female states she been havin g lower abdominal pain for last 2 days. Patient states she had taken a test back in December she thought that she was 8 to 9 months and was delivering she had went over her OB had negative and sent over here. Patient denies any vaginal bleeding she is not delusional here she just told me she goes I thought I was because I had that positive test she states she does not know why she is having lower abdominal pain she rates the pain a 5 out of 10 she denies any dysuria or vaginal discharge Associated symptoms: Deny chest pain, dyspnea, headache(s), nausea, rash or vomiting Review of Systems 2 Const: Denies: fever(s), chills, body aches or change in appetite ENMT: Denies: throat pain or dental pain Card: Denies: chest pain Resp: Denies: dyspnea GI: Reports: abdominal pain; Denies: nausea, vomiting or diarrhea : Denies: dysuria Musc: Denies: neck pain or back pain Skin/Breast: Denies: rash Neuro: Denies: headache(s) PFSH ED 2 PFSH: Medical History Gastroesophageal reflux disease Surgical History History of cholecystectomy Social History Smoking and tobacco/nicotine status: never used tobacco/nicotine Female Reproductive History: Para: 0 Physical Exam 2 Const: COMMON NORMALS: no acute distress, patient oriented x3 and healthy appearing HENMT: COMMON NORMALS: normocephalic and atraumatic HEAD & SCALP: n ormocephalic and atraumatic Neck/C-Spine: COMMON NORMALS: full ROM and supple Chest: COMMONS NORMALS: normal inspection of the chest Resp: COMMON NORMALS: normal respiratory effort Cardio: COMMON NORMALS: regular rate, regular rhythm and No murmurs present (Cardio) RATE: regular rate RHYTHM: regular rhythm GI: COMMON NORMALS: Normal to inspection, nondistended, normoactive bowel sounds present, Soft to palpation, non-tender and no masses PALPATION: Yes Soft to palpation Extremity: COMMON NORMALS: normal to inspection and full ROM Neuro: COMMON NORMALS: patient oriented x3, moves all extremities and no focal motor deficits Psych: COMMON NORMALS: mental status grossly normal, Normal thought process present and cooperative THOUGHT PROCESS: Normal thought process present Skin: COMMON NORMALS: no rashes or lesions noted and no wounds GENERAL SKIN EXAM: no rashes or lesions noted Course 2 Vital Signs: Vital signs: Vital Signs Temperature 98.4 F 09/05/23 17:37 Pulse Rate 80 09/05/23 20:13 Respiratory Rate 16 09/05/23 20:13 Blood Pressure 123/87 09/05/23 20:13 Pulse Oximetry 97 09/05/23 20:13 Oxygen Delivery Me thod Room Air 09/05/23 17:37 MDM - General Adult Medical Decision Making Patient presents with abdominal pain she believes she is but urine here and blood was negative her CT scan shows no acute findings. She has no signs of acute psychosis here she states that she had a positive test back in December and just assume she is she does not appear acutely psychotic and has no other hallucinations I did question her thoroughly and she states she honestly just thought she was because of that positive and never really followed up in the same she was in labor. Her exam here is benign she stable for discharge she is follow-up PCP return if worsening. Medical Records I reviewed the patient's medical records. Lab Data I reviewed the patient's lab results. 09/05/23 17:45 09/05/23 17:45 Radiology Impressions Abdomen/Pelvis CT 09/05/23 18:02 IMPRESSION: 1. No evidence of acute abnormality in the abdomen or pelvis. ADDENDUM: 09/05/231956 IMPRESSION #2: Ill-defined 8 mm left lower lobe nodular opacity, possibly infectious or inflammatory. Consider follow-up CT of the chest in 4-6 weeks to assess for resolution. Laboratory Results WBC 7.92 10^3/uL (3.29-11.43) 09/05/23 17:45 RBC 4.96 10^6/uL (3.85-5.65) 09/05/23 17:45 Hgb 13.80 g/dL (11.27-16.99) 09/05/23 17:45 Hct 42.5 % (36-47) 09/05/23 17:45 MCV 85.7 fl (85-98) 09/05/23 17:45 MCH 27.8 pg (27-33) 09/05/23 17:45 MCHC 32.5 g/dL (30-55) 09/05/23 17:45 RDW 12.9 % (12.1-15.1) 09/05/23 17:45 Plt Count 310 10^3/cmm (157-399) 09/05/23 17:45 MPV 11.1 fL (7.4-10.4) H 09/05/23 17:45 Neut % (Auto) 70.1 % 09/05/23 17:45 Lymph % (Auto) 20.7 % 09/05/23 17:45 [place] % (Auto) 6.8 % 09/05/23 17:45 Eos % (Auto) 1.4 % 09/05/23 17:45 Baso % (Auto) 0.6 % 09/05/23 17:45 Neut # (Auto) 5.55 10^3/uL (1.8-7.7) 09/05/23 17:45 Lymph # (Auto) 1.6 10^3/uL (0.8-4.8) 09/05/23 17:45 [place] # (Auto) 0.5 10^3/uL (0.2-0.9) 09/05/23 17:45 Eos # (Auto) 0.1 10^3/uL (0.0-0.8) 09/05/23 17:45 Baso # (Auto) 0.1 10^3/uL (0.0-0.1) 09/05/23 17:45 Nucleated RBC % (auto) 0 % 09/05/23 17:45 Nucleated RBCs # 0.0 /100WBC 09/05/23 17:45 Sodium 137 mmol/L (136-145) 09/05/23 17:45 Potassium 3.8 mmol/L (3.5-5.1) 09/05/23 17:45 Chloride 101 mmol/L (98-107) 09/05/23 17:45 Carbon Dioxide 24 mmol/L (22-29) 09/05/23 17:45 Anion Gap 15.8 (5-19) 09/05/23 17:45 BUN 9 mg/dL (6-20) 09/05/23 17:45 Creatinine 0.7 mg/dL (0.5-0.9) 09/05/23 17:45 GFR Calculation 101.1 mL/min (90-130) 09/05/23 17:45 Glucose 100 mg/dL (65-115) 09/05/23 17:45 Calculated Osmolality 283 mOsm/kg (285-295) L 09/05/23 17:45 Calcium 8.9 mg/dL (8.5-10.5) 09/05/23 17:45 Total Bilirubin 0.2 mg/dL (0.15-1.2) 09/05/23 17:45 AST 26 U/L (0-32) 09/05/23 17:45 ALT 31 U/L (0-33) 09/05/23 17:45 Alkaline Phosphatase 91 U/L (35-105) 09/05/23 17:45 Total Protein 7.8 g/dL (6.6-8.7) 09/05/23 17:45 Albumin 4.3 g/dL (3.5-5.2) 09/05/23 17:45 Globulin 3.5 g/dL (1.3-4.6) 09/05/23 17:45 HCG, Qual Negative (Negative) 09/05/23 17:45 Urine Color Yellow (Yellow) 09/05/23 17:50 Urine Appearance Clear (CLEAR) 09/05/23 17:50 Urine pH 5 (5-7) 09/05/23 17:50 Ur Specific [place] 1.020 (1.005-1.030) 09/05/23 17:50 Urine Protein Neg (Negative) 09/05/23 17:50 Urine Glucose (UA) Norm (Normal) 09/05/23 17:50 Urine Ketones Negative (Negative) 09/05/23 17:50 Urine Blood Neg (Negative) 09/05/23 17:50 Urine Nitrate Negative (Negative) 09/05/23 17:50 Urine Bilirubin 1+ (Negative) H 09/05/23 17:50 Urine Urobilinogen Norm mg/dL (Negative) 09/05/23 17:50 Ur Leukocyte Esterase Negative (Negative) 09/05/23 17:50 Salicylates < 0.3 mg/dL (3-10) L 09/05/23 17:45 Urine Opiates Screen Negative ng/mL (Negative) 09/05/23 17:50 Acetaminophen < 5.0 ug/mL (10-30) L 09/05/23 17:45 Ur Barbiturates Screen Negative ng/mL (Negative) 09/05/23 17:50 Ur Phencyclidine Scrn Negative ng/mL (Negative) 09/05/23 17:50 Ur Amphetamines Screen Negative ng/mL (Negative) 09/05/23 17:50 U Benzodiazepines Scrn Negative ng/mL (Negative) 09/05/23 17:50 Urine Cocaine Screen Negative ng/mL (Negative) 09/05/23 17:50 U Marijuana (THC) Screen Negative ng/mL (Negative) 09/05/23 17:50 Ethyl Alcohol < 10 mg/dL (0-10) 09/05/23 17:45 All radiology interpretation(s) finalized by discharge Discharge Plan Discharge Patient Disposition: Home Clinical Impression: Abdominal pain Condition: Stable Prescriptions: New hydrocodone-acetaminophen 5-325 mg tablet 1 tab PO Q6H PRN (Reason: pain) Qty: 8 0RF ondansetron 4 mg tablet,disintegrating 4 mg PO Q6H PRN (Reason: nausea and vomiting) Qty: 14 0RF No Action omeprazole 10 mg capsule,delayed release(DR/EC) 10 mg PO DAILY Qty: 10 0RF oseltamivir [Tamiflu] 75 mg capsule 75 mg PO BID 5 Days Qty: 10 0RF metformin 1,000 mg Tablet 1,000 mg PO BID ondansetron 4 mg tablet,disintegrating 4 mg PO Q8H PRN (Reason: nausea and vomiting) Qty: 20 0RF dicyclomine 20 mg tablet 20 mg PO TID PRN (Reason: Abdominal cramping pain) Qty: 20 0RF hydroxyzine HCl 25 mg tablet 25 mg PO Q6H PRN (Reason: anxiety) Qty: 20 0RF Discharge Orders: Discharge ED (Routine); Ordered 09/05/23 Ordered By: Ally Fowler Referrals: Burke Dior MD [Primary Care Provider] - 4-7 days Discharge Diet: Advance as tolerated Discharge Activity: Resume usual activity Patient Instructions: Abdominal Pain (ED), Opioid Safety Coding Level of Care Code ED Manager Assurance for Liliana Rivas
[2023-09-05 20:13] VITALS: BP 123/87; PULSE 80; RESP 16; O2SAT 97
[2023-09-05] MEDS: HYDROcodone-acetaminophen 5-325 mg Tablet 1 TAB PO (20:13)
[2023-09-05 20:18] VITALS: BP 123/87; PULSE 80; RESP 16; TEMP 36.9; O2SAT 97
== END 2023-09-05 20:15 | disposition home or self-care (01) ==
PROVIDERS: Emergency Provider Emergency Medicine; PCP Family Medicine
DX: R10.30 Lower abdominal pain, unspecified (principal); Z79.84 Long term (current) use of oral hypoglycemic drugs
CPT/HCPCS: 36415; 74177; 80053; 80306; 80307; 81003; 84703; 85025; 96374; 96375; 99285; J2270; J2405; Q9967

== ENCOUNTER 2023-09-24 23:28 | Emergency (ER) | payer BC, MEDICAID, SELFPAY ==
[2023-09-24 23:30] VITALS: BP 126/90; PULSE 88; RESP 18; TEMP 36.7; O2SAT 98; BMI 56.1
[2023-09-25 00:05] VITALS: BP 157/115; PULSE 101; O2SAT 97
--- NOTE | 2023-09-25 00:26 | XRR_ITS ---
PROCEDURE INFORMATION: Exam: XR Right Knee Exam date and time: 09/25/2023 12:35 AM Age: 28 years old Clinical indication: Pain; Knee; Right; Additional info: Injury/pain TECHNIQUE: Imaging protocol: Radiologic exam of the right knee. Views: 3 views. COMPARISON: CR XR foot RT min 3V* [id number] 11/21/2021 9:36 AM FINDINGS: Bones/joints: Probable 4.2 x 1.1 cm osteochondroma extending inferiorly from the medial head of the fibula. Image 1002. Soft tissues: Normal. XR/XR knee RT 3V* [id number] IMPRESSION: 1. Probable 4.2 x 1.1 cm osteochondroma extending inferiorly from the medial head of the fibula. Image 1002. 2. No acute findings.
[2023-09-25 00:30] LABS: Alanine Aminotransferase 25 U/L (0-33); Albumin Level 4.2 g/dL (3.5-5.2); Alkaline Phosphatase 73 U/L (35-105); Anion Gap 19.3 (5-19); Aspartate Amino Transferase 30 U/L (0-32); Basophils % 0.3 %; Blood Urea Nitrogen 11 mg/dL (6-20); Calcium 9.1 mg/dL (8.5-10.5); Carbon Dioxide 20 mmol/L (22-29); Chloride 104 mmol/L (98-107); Creatinine Clr Calc Pharmacy 123.4679; Eosinophils # 0.1 10^3/uL (0.0-0.8); Eosinophils % 0.4 %; Globulin 3.4 g/dL (1.3-4.6); Glomerular Filtration Rate 75.7 mL/min (90-130); Glucose 98 mg/dL (65-115); Hematocrit 39.4 % (36-47); Lymphocytes # 1.9 10^3/uL (0.8-4.8); Lymphocytes % 15.9 %; Mean Corpuscular HGB Conc 33.8 g/dL (30-55); Mean Corpuscular Hemoglobin 27.9 pg (27-33); Mean Corpuscular Volume 82.6 fl (85-98); Mean Platelet Volume 11.6 fL (7.4-10.4); Monocytes # 0.7 10^3/uL (0.2-0.9); Monocytes % 6.1 %; Neutrophils # 9.02 10^3/uL (1.8-7.7); Neutrophils % 76.9 %; Nucleated Red Blood Cells % 0 %; Osmolality Calculated 289 mOsm/kg (285-295); Platelet Count 282 10^3/cmm (157-399); Potassium 3.3 mmol/L (3.5-5.1); Red Blood Count 4.77 10^6/uL (3.85-5.65); Red Cell Distribution Width 12.9 % (12.1-15.1); Sodium 140 mmol/L (136-145); Total Bilirubin 0.2 mg/dL (0.15-1.2); Total Protein 7.6 g/dL (6.6-8.7); White Blood Count 11.75 10^3/uL (3.29-11.43)
[2023-09-25 00:31] LABS: Lactic Sepsis W/Reflex 2.1 mmol/L (0.5-2.2)
[2023-09-25 00:34] LABS: Creatine Phosphokinase 1013 U/L (26-192)
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
[2023-09-25 00:40] LABS: Urine Appearance Cloudy (CLEAR); Urine Color Yellow (Yellow); pH Urine 5 (5-7)
[2023-09-25 00:41] LABS: Add Urine Microscopic? YES; Bilirubin Urine 1+ (Negative); Blood Urine 2+ (Negative); Glucose Urine UA Norm (Normal); Ketones Urine 3+ (Negative); Leukocyte Esterase Urine 2+ (Negative); Nitrate Urine Negative (Negative); Protein Urine 1+ (Negative); RBC Urine 15-25 /hpf (0-2); Urobilinogen Urine 1 mg/dL (Negative); WBC Urine 55-80 /hpf (0-5)
[2023-09-25 00:42] LABS: Add Urine Culture? Yes; Bacteria Urine 1+ /hpf; Mucus Urine 3+ /hpf; Trichomonas Urine 1+ /hpf
[2023-09-25] MEDS: sodium chloride 0.9% 1,000 ML 999 ML IV ×2 (00:54→01:26)
[2023-09-25 01:17] LABS: HCG, Serum Qual Negative (Negative)
[2023-09-25 01:22] VITALS: RESP 17; O2SAT 99
[2023-09-25] MEDS: morphine 4 mg/mL SDV 1 mL IVP (01:22)
[2023-09-25] MEDS: metroNIDAZOLE IV 500 MG/100 ML PREMIX 100 MG IV (01:26)
[2023-09-25 01:35] VITALS: BP 186/107; PULSE 86; RESP 15; O2SAT 99
[2023-09-25 01:58] LABS: Reflex Lactate Order REFLEX LACTIC ORDERD
[2023-09-25 02:06] VITALS: PULSE 90; RESP 15; O2SAT 99
[2023-09-25] MEDS: HYDROcodone-acetaminophen 5-325 mg Tablet 2 TAB PO (03:09)
[2023-09-25 03:19] VITALS: PULSE 97; O2SAT 99
--- NOTE | 2023-09-25 07:33 | DCPLANNER ---
Sent to Ortho for follow up-
== END 2023-09-25 03:22 | disposition home or self-care (01) ==
PROVIDERS: Emergency Medicine; Emergency Provider Physician Assistant; PCP Family Medicine
DX: S80.01XA Contusion of right knee, initial encounter (principal); L55.0 Sunburn of first degree; Z79.84 Long term (current) use of oral hypoglycemic drugs; R74.8 Abnormal levels of other serum enzymes; E66.9 Obesity, unspecified; Z68.43 Body mass index [BMI] 50.0-59.9, adult; W19.XXXA Unspecified fall, initial encounter; Y92.828 Other wilderness area as the place of occurrence of the external cause
CPT/HCPCS: 29530; 36415; 73562; 80053; 81001; 82550; 83605; 84703; 85025; 87086; 96361; 96365; 96375; 99284; E0114; J2270; J3490; J7030

== ENCOUNTER → 2024-03-29 16:30 | Outpatient (BNVA) | payer BC, MEDICAID, SELFPAY | PROVIDERS: PCP Family Medicine; Visit Provider Emergency Medicine | DX: J02.9 Acute pharyngitis, unspecified (principal); R05.9 Cough, unspecified | CPT/HCPCS: 87400; 87426; 87880 ==

== ENCOUNTER → 2024-04-24 15:16 | Outpatient (BNVA) | payer OTHER, SELFPAY | PROVIDERS: PCP Family Medicine; Visit Provider Emergency Medicine | DX: S96.912A Strain of unspecified muscle and tendon at ankle and foot level, left foot, initial encounter (principal); X50.1XXA Overexertion from prolonged static or awkward postures, initial encounter | CPT/HCPCS: 73630 ==

== ENCOUNTER 2024-11-19 08:03 | Emergency (ER) | payer OTHER, SELFPAY ==
--- NOTE | 2024-11-19 08:08 | XRR_ITS ---
PROCEDURE INFORMATION: Exam: XR Chest Exam date and time: 11/19/2024 8:29 AM Age: 29 years old Clinical indication: Other: Chest pain and center of back pain x today TECHNIQUE: Imaging protocol: Radiologic exam of the chest. Views: 1 view. COMPARISON: CR XR chest 1V portable [id number] 12/18/2022 8:09 PM FINDINGS: Lungs: No consolidating infiltrates Pleural spaces: Unremarkable. No pleural effusion. No pneumothorax. Heart/Mediastinum: Unremarkable. No cardiomegaly. Bones/joints: Unremarkable. Soft tissues: There is subtle increased attenuation projected over the left costophrenic angle, likely reflecting artifact from overlying soft tissues. XR/XR chest 1V portable [id number] IMPRESSION: No acute abnormality
--- NOTE | 2024-11-19 08:08 | ECG_ITS ---
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 Measurements Intervals [place] Rate: 107 P: 51 [place]: 143 QRS: -13 QRSD: 78 T: 30 QT: 297 QTc: 396 Interpretive Statements SINUS TACHYCARDIA Compared to ECG 12/18/2022 22:01:56 Sinus arrhythmia no longer present Electronically Signed On 11-21-2024 08:47:54 CDT by Mars Michelle M.D. [email or web address]
[2024-11-19 08:13] VITALS: BP 166/101; PULSE 130; RESP 24; TEMP 36.9; O2SAT 100; BMI 47.2
--- OUTSIDE RECORDS SUMMARY | 2024-11-19 08:22 | XMS_ITS | Clinical Summary ---
Author Organization [facility] Address [address] [facility] [address] [place] [address] Phone Care Team Providers Care Summer School Coordinator Name Role Phone Burke Dior MD Primary Care Provider [phone] Allergies No known active allergies Medications losartan (COZAAR) 50 mg tablet Take 1 Tablet (50 mg) by mouth daily. 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 Gender Identity Not on file Sexual Orientation Not on file Last Filed Vital Signs Vital Sign Reading Time Taken Comments Blood Pressure 173/109 09/16/2020 7:[address] Engle is aware of blood pressure advises may discharge Pulse - - Temperature 36.2 C (97.1 F) 09/16/2020 7:21 PM CDT Respiratory Rate 20 09/16/2020 7:21 PM CDT Oxygen Saturation 99% 09/16/2020 7:2 1 PM CDT Inhaled Oxygen Concentration - - Weight 146.9 kg (323 lb 12.8 oz) 09/16/2020 5:43 PM CDT Height 154.9 cm (5' 1 ) 09/16/2020 5:43 PM CDT Body Mass Index 61.18 09/16/2020 5:43 PM CDT Plan of Treatment Health Maintenance Due Date Last Done Comments HPV VACCINES (1 - 3-dose series) 2012 DTAP/TDAP/TD VACCINES (1 - Tdap) 2016 HEPATITIS B VACCINES (1 of 3 - 19+ 3-dose series) 07/01 CERVICAL CANCER SCREENING 2018 HPV/Cotest (21-29) 2018 PAP SMEAR 2018 INFLUENZA VACCINE (#1) 2024 Insurance [employer] PLUS Care Teams Summer School Coordinator Relationship Specialty Start Date End Date Burke Dior MD [address] [id number] PCP - General Family Practice 09/16/20
--- OUTSIDE RECORDS SUMMARY | 2024-11-19 08:22 | XMS_ITS | Clinical Summary ---
Author Organization [facility] Address [address] [facility] [address] [place] [address] Phone Care Team Providers Care Adjustment Examiner Name Role Phone Burke Dior MD Primary Care Provider [phone] Medications losartan (COZAAR) 50 mg tablet Take 1 Tablet (50 mg) by mouth daily. 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
[2024-11-19 09:15] LABS: Hematocrit 42.5 % (36-47); Hemoglobin 14.10 g/dL (11.27-16.99); Mean Corpuscular HGB Conc 33.2 g/dL (30-55); Mean Corpuscular Hemoglobin 28.4 pg (27-33); Mean Corpuscular Volume 85.5 fl (85-98); Nucleated Red Blood Cells % 0 %; Platelet Count 286 10^3/cmm (157-399); Red Blood Count 4.97 10^6/uL (3.85-5.65); White Blood Count 7.76 10^3/uL (3.29-11.43)
[2024-11-19 09:36] LABS: Alanine Aminotransferase 22 U/L (0-33); Albumin Level 4.5 g/dL (3.5-5.2); Alkaline Phosphatase 64 U/L (35-105); Anion Gap 19.7 (5-19); Aspartate Amino Transferase 21 U/L (0-32); Blood Urea Nitrogen 9 mg/dL (6-20); Calcium 9.6 mg/dL (8.5-10.5); Carbon Dioxide 20 mmol/L (22-29); Chloride 102 mmol/L (98-107); Creatinine Clr Calc Pharmacy 141.1005; Globulin 3.7 g/dL (1.3-4.6); Glucose 106 mg/dL (65-115); Lipase 22 U/L (13-60); Osmolality Calculated 285 mOsm/kg (285-295); Potassium 3.7 mmol/L (3.5-5.1); Sodium 138 mmol/L (136-145); Total Protein 8.2 g/dL (6.6-8.7)
[2024-11-19 10:16] VITALS: BP 139/81; PULSE 86; O2SAT 97
--- NOTE | 2024-11-19 10:22 | W.ED.CHESTPA ---
HPI - Chest Pain General: Chief Complaint: Chest Pain Stated Complaint: chest pain lower back pain sob Time Seen by Provider: 11/19/24 08:07 History of Present Illness: Pt is a 29 year old female who presents to the ED complaining of lower back pain and chest pain. She states the pain started suddenly around 7 AM this morning. She describes the pain as sharp and constant, 10/10 in severity, starting in her lower back and radiating to her chest, and is worse with movement. She has history of chronic lower back pain, no history of any similar episodes to this. She has had intermittent nausea, and has pain with deep inspiration. She has not taken any medications since 7 AM. She denies shortness of breath, vomiting, diarrhea, dysuria, abdominal pain, or numbness or tingling in her lower extremities. Associated symptoms: Deny abdominal pain, dyspnea or fever(s) Related Data Home Medications ?Medication ?Instructions ?Recorded ?Confirmed metformin 500 mg tablet,extended 500 mg PO BID 11/19/24 11/19/24 release 24 hr norgestimate-ethinyl estradiol 1 tab PO DAILY 11/19/24 11/19/24 0.18mg/0.215mg/0.25mg-0.035mg(28)tablet (Tri-VyLibra) Previous Rx's ?Medication ?Instructions ?Recorded ibuprofen 800 mg tablet 800 mg PO Q8H PRN pain #30 tabs 04/24/24 ciprofloxacin HCl 500 mg tablet 500 mg PO BID #14 tabs 11/19/24 hydrocodone 5 mg-acetaminophen 325 1 tab PO Q6H PRN pain #12 tabs 11/19/24 mg tablet Allergies Allergy/AdvReac Type Severity Reaction Status Date / Time Latex, Natural Rubber Allergy Severe ADR-Itching Verified 05/06/24 18:47 Review of Systems Const: Denies: fever(s) or chills Card: Reports: chest pain Resp: Denies: dyspnea GI: Denies: abdominal pain : Denies: dysuria, urinary frequency or urinary urgency Musc: Denies: neck pain or back pain Skin/Breast: Denies: rash PFS ED PFSH: Medical History Gastroesophageal reflux disease Surgical History History of cholecystectomy Social History Smoking and tobacco/nicotine status: never used tobacco/nicotine Female Reproductive History: Date of last menstrual period: 11/11/24 Para: 0 Physical Exam Const: COMMON NORMALS: no acute distress GENERAL APPEARANCE: cooperative and comfortable ORIENTATION/CONSCIOUSNESS: Yes awake, Yes oriented to person, Yes oriented to place and Yes oriented to time HENMT: COMMON NORMALS: normocephalic, atraumatic and hearing grossly normal bilaterally HEAD & SCALP: normocephalic and atraumatic Resp: COMMON NORMALS: normal respiratory effort, No retractions, No use of accessory muscles and clear to auscultation bilaterally AUSCULTATION: clear to auscultation bilaterally Cardio: COMMON NORMALS: regular rate, regular rhythm and No murmurs present (Cardio) RATE: regular rate RHYTHM: regular rhythm GI: COMMON NORMALS: Soft to palpation and No hepatosplenomegaly present AUSCULTATION: Yes normoactive bowel sounds PALPATION: Yes Soft to palpation, No Tenderness to palpation present (GI), No Guarding due to palpation present (GI) and Yes No hepatosplenomegaly present Extremity: COMMON NORMALS: normal to inspection, capillary refill normal, no clubbing, cyanosis or edema, no calf tenderness and no pedal edema Neuro: SENSORIUM/ORIENTATION: Yes oriented to person, Yes oriented to place and Yes oriented to time Skin: COMMON NORMALS: no rashes or lesions noted GENERAL SKIN EXAM: no rashes or lesions noted Course Vital Signs: Vital signs: Vital Signs Temperature 98.5 F 11/19/24 08:13 Pulse Rate 86 11/19/24 10:16 Respiratory Rate 24 H 11/19/24 08:13 Blood Pressure 139/81 11/19/24 10:16 Pulse Oximetry 97 11/19/24 10:16 Oxygen Delivery Me thod Room Air 11/19/24 10:16 MDM - Chest Pain Medical Decision Making No leukocytosis D-dimer negative cardiac enzymes negative EKGs showed tachycardia which has improved after IV fluids. Will discharge patient home with Cipro for cystitis likely has early pyelonephritis. Can be treated as an outpatient. Lab Data 11/19/24 08:57 11/19/24 08:57 Radiology Impressions Chest X-Ray 11/19/24 08:08 IMPRESSION: No acute abnormality Laboratory Results WBC 7.76 10^3/uL (3.29-11.43) 11/19/24 08:57 RBC 4.97 10^6/uL (3.85-5.65) 11/19/24 08:57 Hgb 14.10 g/dL (11.27-16.99) 11/19/24 08:57 Hct 42.5 % (36-47) 11/19/24 08:57 MCV 85.5 fl (85-98) 11/19/24 08:57 MCH 28.4 pg (27-33) 11/19/24 08:57 MCHC 33.2 g/dL (30-55) 11/19/24 08:57 RDW 12.9 % (12.1-15.1) 11/19/24 08:57 Plt Count 286 10^3/cmm (157-399) 11/19/24 08:57 MPV 11.3 fL (7.4-10.4) H 11/19/24 08:57 Neut % (Auto) 70.4 % 11/19/24 08:57 Lymph % (Auto) 21.4 % 11/19/24 08:57 [place] % (Auto) 6.3 % 11/19/24 08:57 Eos % (Auto) 1.2 % 11/19/24 08:57 Baso % (Auto) 0.4 % 11/19/24 08:57 Neut # (Auto) 5.47 10^3/uL (1.8-7.7) 11/19/24 08:57 Lymph # (Auto) 1.7 10^3/uL (0.8-4.8) 11/19/24 08:57 [place] # (Auto) 0.5 10^3/uL (0.2-0.9) 11/19/24 08:57 Eos # (Auto) 0.1 10^3/uL (0.0-0.8) 11/19/24 08:57 Baso # (Auto) 0.0 10^3/uL (0.0-0.1) 11/19/24 08:57 Nucleated RBC % (auto) 0 % 11/19/24 08:57 Nucleated RBCs # 0.0 /100WBC 11/19/24 08:57 D-Dimer 0.35 ug/mLFEU (0-0.59) 11/19/24 08:57 Sodium 138 mmol/L (136-145) 11/19/24 08:57 Potassium 3.7 mmol/L (3.5-5.1) 11/19/24 08:57 Chloride 102 mmol/L (98-107) 11/19/24 08:57 Carbon Dioxide 20 mmol/L (22-29) L 11/19/24 08:57 Anion Gap 19.7 (5-19) H 11/19/24 08:57 BUN 9 mg/dL (6-20) 11/19/24 08:57 Creatinine 0.7 mg/dL (0.5-0.9) 11/19/24 08:57 GFR Calculation 100.4 mL/min (90-130) 11/19/24 08:57 Glucose 106 mg/dL (65-115) 11/19/24 08:57 Calculated Osmolality 285 mOsm/kg (285-295) 11/19/24 08:57 Calcium 9.6 mg/dL (8.5-10.5) 11/19/24 08:57 Total Bilirubin 0.3 mg/dL (0.15-1.2) 11/19/24 08:57 AST 21 U/L (0-32) 11/19/24 08:57 ALT 22 U/L (0-33) 11/19/24 08:57 Alkaline Phosphatase 64 U/L (35-105) 11/19/24 08:57 Troponin T Baseline < 6 ng/L (0-10) 11/19/24 08:57 Troponin T 120 Minute < 6.0 ng/L (0-10) 11/19/24 11:39 Delta Troponin T 0 ABS# (0-10) 11/19/24 11:39 Total Protein 8.2 g/dL (6.6-8.7) 11/19/24 08:57 Albumin 4.5 g/dL (3.5-5.2) 11/19/24 08:57 Globulin 3.7 g/dL (1.3-4.6) 11/19/24 08:57 Lipase 22 U/L (13-60) 11/19/24 08:57 Urine Color Yellow (Yellow) 11/19/24 11:50 Urine Appearance Clear (CLEAR) 11/19/24 11:50 Urine pH 8.5 (5-7) A 11/19/24 11:50 Ur Specific [place] 1.010 (1.005-1.030) 11/19/24 11:50 Urine Protein Negative (Negative) 11/19/24 11:50 Urine Glucose (UA) Negative (Normal) 11/19/24 11:50 Urine Ketones Trace (Negative) 11/19/24 11:50 Urine Blood Negative (Negative) 11/19/24 11:50 Urine Nitrate Negative (Negative) 11/19/24 11:50 Urine Bilirubin Negative (Negative) 11/19/24 11:50 Urine Urobilinogen 1.0 mg/dL (Negative) 11/19/24 11:50 Ur Leukocyte Esterase 2+ (Negative) A 11/19/24 11:50 Urine RBC 0-2 /hpf (0-2) 11/19/24 11:50 Urine WBC 51-100 /hpf (0-5) H 11/19/24 11:50 Ur Squamous Epith Cells 0-5 /hpf (0-5) 11/19/24 11:50 Amorphous Sediment Not Reportable 11/19/24 11:50 Urine Bacteria None seen /hpf (NONE) 11/19/24 11:50 Hyaline Casts 0-4 /lpf H 11/19/24 11:50 Urine Opiates Screen Negative ng/mL (Negative) 11/19/24 11:50 Ur Barbiturates Screen Negative ng/mL (Negative) 11/19/24 11:50 Ur Phencyclidine Scrn Negative ng/mL (Negative) 11/19/24 11:50 Ur Amphetamines Screen Negative ng/mL (Negative) 11/19/24 11:50 U Benzodiazepines Scrn Negative ng/mL (Negative) 11/19/24 11:50 Urine Cocaine Screen Negative ng/mL (Negative) 11/19/24 11:50 U Marijuana (THC) Screen Negative ng/mL (Negative) 11/19/24 11:50 All radiology interpretation(s) finalized by discharge Discharge Plan Discharge Patient Disposition: Home Clinical Impression: Pyelonephritis Condition: Stable Prescriptions: New ciprofloxacin HCl 500 mg tablet 500 mg PO BID Qty: 14 0RF hydrocodone-acetaminophen 5-325 mg tablet 1 tab PO Q6H PRN (Reason: pain) Qty: 12 0RF No Action ibuprofen 800 mg tablet 800 mg PO Q8H PRN (Reason: pain) Qty: 30 0RF norgestimate-ethinyl estradiol [Tri-VyLibra] 0.18/0.215/0.25 mg-0.035mg (28) tablet 1 tab PO DAILY metformin 500 mg Tablet Extended Release 24 Hr 500 mg PO BID Discharge Orders: Discharge ED (Routine); Ordered 11/19/24 Ordered By: Janak Bauer Referrals: Burke Dior MD [Primary Care Provider, Family Practice] Discharge Diet: Usual diet Discharge Activity: Increase activity as tolerated Patient Instructions: Opioid Safety, Pain Management, Patient Portal & Yoana Instructions, Pyelonephritis Activity Restrictions/Additional Instructions: [facility]. It is very important that you follow up as instructed or that you return to the Emergency Department should you have concerns or if your condition changes or worsens in any way. You are seen in the emergency room with complaint of back and flank pain. Chest x-ray was normal cardiac enzymes and D-dimer screening for PE were also normal. Urine shows signs of infection. I suspect this is where your pain is coming from. Given a dose of antibiotics you are start oral antibiotics tomorrow and will twice a day for 10 days. Print Language: Yakut Coding Level of Care Code ED Squash Centre Manager for Liliana Rivas
--- NOTE | 2024-11-19 11:01 | PC.PHAR ---
Patient has Metformin Er 500 on hold at [facility] . RX was sent there 09/04/24 never picked up . Patient had a metformin 1000 o record last updated 05/23 and no fill date shown. Patient stated she still took Metformin . I recorded the new one from the Pharmacy. Patient stated she used [facility]. Only thing they did have current and picked up was her Tri-Vylibra . [facility] didn't have anything since March 2024.
--- NOTE | 2024-11-19 11:17 | ECG_ITS ---
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 Measurements Intervals [place] Rate: 67 P: 50 RI: 171 QRS: -4 QRSD: 101 T: 54 QT: 377 QTc: 400 Interpretive Statements SINUS RHYTHM WITH MARKED SINUS ARRHYTHMIA Compared to ECG 11/19/2024 08:24:20 Sinus tachycardia no longer present Electronically Signed On 11-21-2024 08:46:20 CDT by Mars Michelle M.D. [email or web address]
[2024-11-19 11:53] LABS: Troponin(5th) Baseline < 6 ng/L (0-10)
[2024-11-19 12:09] LABS: Glucose Urine UA Negative (Normal); Nitrate Urine Negative (Negative); Specific Gravity, Urine 1.010 (1.005-1.030)
[2024-11-19 12:14] LABS: Add Urine Microscopic? YES
[2024-11-19 12:15] LABS: Troponin 5 2HR < 6.0 ng/L (0-10); Troponin 5 2HR Delta 0 ABS# (0-10)
[2024-11-19 12:16] LABS: PCP Screen Urine Negative (Negative)
[2024-11-19 12:53] VITALS: BP 132/68; PULSE 67; O2SAT 98
== END 2024-11-19 12:54 | disposition home or self-care (01) ==
PROVIDERS: Emergency Provider Family Medicine; PCP Family Medicine
DX: N12 Tubulo-interstitial nephritis, not specified as acute or chronic (principal); Z79.84 Long term (current) use of oral hypoglycemic drugs
CPT/HCPCS: 36415; 71045; 80053; 80306; 81001; 83690; 84484; 85025; 85378; 87086; 93005; 96374; 99285; J1885

== ENCOUNTER → 2025-01-02 15:08 | Outpatient (BNVA) | payer OTHER, SELFPAY | PROVIDERS: PCP Family Medicine; Visit Provider Nurse Practitioner | DX: S99.921A Unspecified injury of right foot, initial encounter (principal); X58.XXXA Exposure to other specified factors, initial encounter | CPT/HCPCS: 73630 ==